=== PATIENT | female | born 1965 | race Caucasian/White ===

== ENCOUNTER 2020-08-29 07:34 | Outpatient (REF) | payer OTHER, SELFPAY ==
[2020-08-29 12:12] LABS: Alanine Aminotransferase 28 U/L (0-31); Aspartate Amino Transferase 18 U/L (5-31); Cholesterol 143 mg/dL; HDL Cholesterol 56 mg/dL; LDL Cholesterol Calculated 72 mg/dl; Triglycerides 78 mg/dL
[2020-08-29 12:38] LABS: Vitamin D 25-OH Total 33.4 ng/mL (>30)
== END 2020-08-29 07:35 | disposition home or self-care (01) ==
LOC: HO.HMGCLDS 07:34
PROVIDERS: PCP Internal Medicine; Visit Provider Internal Medicine
DX: Z00.01 Encounter for general adult medical examination with abnormal findings (principal); Z78.0 Asymptomatic menopausal state
CPT/HCPCS: 80061; 82306; 84450; 84460

== ENCOUNTER → 2020-09-29 08:45 | Outpatient (BNVA) | payer OTHER, SELFPAY | PROVIDERS: PCP Internal Medicine; Referring Provider Internal Medicine; Visit Provider Internal Medicine Cardiovascular Disease | DX: Z76.89 Persons encountering health services in other specified circumstances (principal) ==

== ENCOUNTER → 2020-10-05 11:53 | Outpatient (REF) | payer OTHER, SELFPAY ==
--- NOTE | 2020-10-05 11:30 | CA_ITS ---
Acquisition Time: 2020-10-05 11:06:13 Total Exercise Time: 00:08:33 Test Indications: SOB Medications: Protocol: ALESSANDRA Max HR: 171 BPM 104% of Pred: 163 BPM Max BP: 192/052 mmHG Max Work Load: 10.1 METS Exercise stress ECHO using Alessandra protocol, total of 8 min 33 sec. METS10.10, MAPHR up to 104%. Pt tolerated well, denies any anginal sx. EKG with occ. PAC's no ischemic changes. EHO images taken at rest and immediately after peak exercise. Defenity contrast used. hypertensive response to exersice that normalizes in recovery. Test reviewed with Dr. Zamora. Referred By: Ramone Hamilton Overread By: Guerrero Vang
== END ==
LOC: HO.CARD 11:53
PROVIDERS: PCP Internal Medicine; Visit Provider Internal Medicine Cardiovascular Disease
DX: I73.9 Peripheral vascular disease, unspecified (principal); R06.02 Shortness of breath
CPT/HCPCS: 93017; 93350; Q9957

== ENCOUNTER 2020-11-08 07:48 | Outpatient (REF) | payer OTHER, SELFPAY ==
[2020-11-08 12:01] LABS: Cholesterol 135 mg/dL; HDL Cholesterol 46 mg/dL; LDL Cholesterol Calculated 77 mg/dl; Triglycerides 62 mg/dL
== END 2020-11-08 07:49 | disposition home or self-care (01) ==
LOC: HO.HMGCLDS 07:48
PROVIDERS: PCP Internal Medicine; Visit Provider Internal Medicine Cardiovascular Disease
DX: I25.10 Atherosclerotic heart disease of native coronary artery without angina pectoris (principal); I73.9 Peripheral vascular disease, unspecified
CPT/HCPCS: 36415; 80061

== ENCOUNTER → 2020-11-10 10:03 | Outpatient (BNVA) | payer OTHER, SELFPAY | PROVIDERS: PCP Internal Medicine; Visit Provider Internal Medicine Cardiovascular Disease ==

== ENCOUNTER 2021-01-24 08:25 | Outpatient (REF) | payer OTHER, SELFPAY ==
[2021-01-24 11:13] LABS: MANUAL DIFF FLAG NO
[2021-01-24 11:27] LABS: Basophils Percent Auto 0.7 % (0-2); Eosinophils Percent Auto 0.7 % (0-4); Hematocrit 42.4 % (37-47); Hemoglobin 13.5 g/dl (12.0-16.0); Imm Gran Abs Auto 0.01 X10*3/uL (0.00-0.03); Imm Gran Pct Auto 0.2 % (0.0-0.4); Lymphocytes Absolute Auto 1.8 X10*3/uL (1.2-4.9); Lymphocytes Percent Auto 29.2 % (20-40); Mean Corpuscular HGB Conc 31.8 g/dl (31.0-35.0); Mean Corpuscular Volume 91.2 fL (80-98); Mean Platelet Volume 10.9 fL (9.4-12.3); Monocytes Absolute Auto 0.4 X10*3/uL (0.1-1.2); Monocytes Percent Auto 6.8 % (2-11); Neutrophils Absolute Auto 3.8 X10*3/uL (2.0-8.3); Neutrophils Percent Auto 62.4 % (45-73); Platelet Count 163 X10*3/uL (160-400); Red Blood Count 4.65 X10*6/uL (4.20-5.50); Red Cell Distribution Width 12.5 % (11.0-16.0); White Blood Count 6.1 X10*3/uL (4.8-10.8)
[2021-01-24 11:36] LABS: Alanine Aminotransferase 40 U/L (0-31); Albumin Level 4.6 g/dL (3.5-5.0); Alkaline Phosphatase 117 U/L (39-117); Anion Gap 11 (12-20); Aspartate Amino Transferase 19 U/L (5-31); Bilirubin Total 0.7 mg/dL (0.0-1.0); Blood Urea Nitrogen 22 mg/dL (9-16); Calcium 9.5 mg/dL (8.4-10.2); Carbon Dioxide 29 mmol/L (22-29); Chloride 107 mmol/L (96-108); Cholesterol 129 mg/dL; Estimated Glomerular Filt Rate > 60; Glucose Fasting 84 mg/dL (60-99); HDL Cholesterol 54 mg/dL; LDL Cholesterol Calculated 65 mg/dl; Potassium 4.5 mmol/L (3.3-5.1); Sodium 142 mmol/L (135-145); Total Protein 6.8 g/dL (6.5-8.0); Triglycerides 54 mg/dL
[2021-01-24 11:57] LABS: Vitamin D 25-OH Total 39.3 ng/mL (>30)
== END 2021-01-24 08:26 | disposition home or self-care (01) ==
LOC: HO.HMGCLDS 08:25
PROVIDERS: Referring Provider Internal Medicine Cardiovascular Disease; Visit Provider Internal Medicine
DX: Z00.01 Encounter for general adult medical examination with abnormal findings (principal); I73.9 Peripheral vascular disease, unspecified; E78.5 Hyperlipidemia, unspecified; F41.8 Other specified anxiety disorders; Z78.0 Asymptomatic menopausal state
CPT/HCPCS: 36415; 80053; 80061; 82306; 85025

== ENCOUNTER 2021-03-23 | Outpatient (REF) | payer OTHER, SELFPAY | END 2021-03-23 00:01 | disposition home or self-care (01) | LOC: HO.LNP | PROVIDERS: Visit Provider Hospitalist | DX: R30.0 Dysuria (principal) | CPT/HCPCS: 87086 ==

== ENCOUNTER → 2021-03-27 09:54 | Outpatient (BNVA) | payer OTHER, SELFPAY | PROVIDERS: PCP Internal Medicine; Referring Provider Internal Medicine; Visit Provider Nurse Practitioner Family ==

== ENCOUNTER → 2021-05-29 09:50 | Outpatient (BNVA) | payer OTHER, SELFPAY | PROVIDERS: PCP Internal Medicine; Referring Provider Internal Medicine; Visit Provider Nurse Practitioner Family ==

== ENCOUNTER 2021-11-15 12:35 | Outpatient (REF) | payer OTHER, SELFPAY ==
--- NOTE | ~2021-11-15 | MM_ITS ---
EXAMINATION: MM SCREENING DIGITAL BREAST TOMOSYNTHESIS, BILATERAL CLINICAL INFORMATION: Screening. Asymptomatic. The lifetime risk of breast cancer based on the Tyrer-Cuzick Model is 13%. COMPARISON: Mammography: 07/15/2020, 04/28/2019, 02/24/2018, 01/14/2017, 12/09/2015, 11/15/2014 TECHNIQUE: Digital breast tomosynthesis is performed in both the craniocaudal and mediolateral oblique views along with computer-aided detection (CAD). Synthesized 2D images are generated from the tomosynthesis. FINDINGS: There are scattered areas of fibroglandular density (ACR BI-RADS breast composition Category b). Left breast parenchymal pattern is similar to prior studies. There is no developing density or interval mass or architectural abnormality. Biopsy clip marker again seen anterior lower inner left breast. Neither breast shows abnormal calcifications. The axilla and skin contours are unremarkable. Right MLO view has questionable asymmetric density mid upper breast approximately 8 cm from nipple. This could represent island of stable fibroglandular tissue in the area of otherwise involuting parenchyma. Patient will be recalled for additional imaging. MM/MM tomosynthesis screening BI IMPRESSION: 1. Right: Question of asymmetric density mid upper right breast versus island fibroglandular tissue. 2. Left: No mammographic evidence of malignancy. ASSESSMENT: BI-RADS 0: Incomplete - Need Additional Imaging Evaluation RECOMMENDATION: 1. Additional views of the right breast (spot MLO, standard ML). 2. Targeted ultrasound if warranted after review of the additional views. 3. Radiology department staff will contact the patient for additional imaging. This patient's information was entered into a reminder system with a target due date for their next mammogram.
== END 2021-11-15 12:36 | disposition home or self-care (01) ==
LOC: HO.MAMMO 12:35
PROVIDERS: PCP Nurse Practitioner Family; Visit Provider Nurse Practitioner Family
DX: Z12.31 Encounter for screening mammogram for malignant neoplasm of breast (principal)
CPT/HCPCS: 77063; 77067

== ENCOUNTER → 2021-11-27 09:50 | Outpatient (BNVA) | payer OTHER, SELFPAY | PROVIDERS: PCP Nurse Practitioner Family; Referring Provider Nurse Practitioner Family; Visit Provider Nurse Practitioner Family ==

== ENCOUNTER 2021-11-28 13:48 | Outpatient (REF) | payer OTHER, SELFPAY ==
--- NOTE | ~2021-11-28 | MM_ITS ---
EXAMINATION: MM DIAGNOSTIC DIGITAL BREAST TOMOSYNTHESIS, RIGHT US DIAGNOSTIC ULTRASOUND BREAST, RIGHT CLINICAL INFORMATION: Recall from screening for questionable asymmetric density versus summation upper right breast on MLO view. Family history breast cancer mother, sister. COMPARISON: Mammography: 11/15/2026 oh, 07/15/2020, 04/28/2019, 02/24/2018, 01/14/2017, 12/09/2015, 11/15/2014 TECHNIQUE: Digital breast tomosynthesis is performed. 2D images are generated from the tomosynthesis. The following views are obtained: ML, spot MLO, spot ML Ultrasound right breast is targeted to the upper breast. Grayscale imaging and color Doppler are performed without and with harmonics. FINDINGS: There are scattered areas of fibroglandular density (ACR BI-RADS breast composition Category b). The additional spot MLO and standard ML views show no persistent asymmetric density or architectural abnormality. The finding is questionably visible on the spot ML view again likely summation. No architectural abnormality. No three-dimensional mass. Ultrasound demonstrates no cystic or solid mass or architectural abnormality. No focal duct ectasia. Results are discussed with the patient at time of visit. Given the family history breast cancer in mother and sister, short interval follow-up right mammography will be requested to exclude remote possibility of an occult developing density in the area of recent imaging concern. MM/MM tomosynthesis added views R IMPRESSION: Additional imaging shows no convincing persistent three-dimensional asymmetric density. Unremarkable targeted right breast ultrasound. ASSESSMENT: BI-RADS 3: Probably Benign RECOMMENDATION: Diagnostic right mammography in 6 months. This patient's information was entered into a reminder system with a target due date for their next mammogram.
== END 2021-11-28 13:49 | disposition home or self-care (01) ==
LOC: HO.MAMMO 13:48
PROVIDERS: Visit Provider Nurse Practitioner Family
DX: R92.2 Inconclusive mammogram (principal)
CPT/HCPCS: 76642; 77061; 77065

== ENCOUNTER → 2021-12-18 09:19 | Outpatient (BNVA) | payer SELFPAY | PROVIDERS: PCP Nurse Practitioner Family | DX: Z11.1 Encounter for screening for respiratory tuberculosis (principal) ==

== ENCOUNTER 2022-03-28 07:07 | Outpatient (REF) | payer OTHER, SELFPAY ==
--- NOTE | ~2022-03-28 | XR_ITS ---
EXAMINATION: XR CHEST CLINICAL INFORMATION: Syncope and collapse COMPARISON: Chest x-ray 10/30/2018 TECHNIQUE: 2 views of the chest were obtained. FINDINGS: Cardiac silhouette is normal in size. Atherosclerotic disease of the aortic arch. The lungs are well aerated. There is no lobar consolidation. No pleural effusion or pneumothorax. No acute osseous abnormality. XR/XR chest 2V IMPRESSION: Stable examination demonstrating no acute pulmonary pathology.
[2022-03-28 11:43] LABS: MANUAL DIFF FLAG NO
[2022-03-28 11:51] LABS: Basophils Percent Auto 0.5 % (0-2); Eosinophils Absolute Auto 0.1 X10*3/uL (0.0-0.4); Eosinophils Percent Auto 1.1 % (0-4); Hematocrit 42.3 % (37.0-47.0); Hemoglobin 13.8 g/dl (12.0-16.0); Imm Gran Abs Auto 0.01 X10*3/uL (0.00-0.03); Imm Gran Pct Auto 0.2 % (0.0-0.4); Lymphocytes Absolute Auto 1.4 X10*3/uL (1.2-4.9); Lymphocytes Percent Auto 31.9 % (20-40); Mean Corpuscular HGB Conc 32.6 g/dl (31.0-35.0); Mean Corpuscular Hemoglobin 29.9 pg (27.0-33.0); Mean Corpuscular Volume 91.8 fL (80.0-98.0); Mean Platelet Volume 11.2 fL (9.4-12.3); Monocytes Absolute Auto 0.4 X10*3/uL (0.1-1.2); Monocytes Percent Auto 8.1 % (2-11); Neutrophils Absolute Auto 2.6 x10*3/uL (2.0-8.3); Neutrophils Percent Auto 58.2 % (45-73); Platelet Count 196 X10*3/uL (160-400); Red Blood Count 4.61 X10*6/uL (4.20-5.50); Red Cell Distribution Width 12.7 % (11.0-16.0); White Blood Count 4.4 X10*3/uL (4.8-10.8)
[2022-03-28 12:00] LABS: Alanine Aminotransferase 17 U/L (0-31); Albumin Level 4.5 g/dL (3.5-5.0); Alkaline Phosphatase 90 U/L (39-117); Anion Gap 13 (12-20); Aspartate Amino Transferase 14 U/L (5-31); Bilirubin Total 0.3 mg/dL (0.0-1.0); Blood Urea Nitrogen 17 mg/dL (9-16); Calcium 9.6 mg/dL (8.4-10.2); Carbon Dioxide 25 mmol/L (22-29); Chloride 110 mmol/L (96-108); Cholesterol 151 mg/dL; Estimated Glomerular Filt Rate > 60; Glucose Fasting 92 mg/dL (60-99); HDL Cholesterol 52 mg/dL; LDL Cholesterol Calculated 86 mg/dl; Potassium 4.8 mmol/L (3.3-5.1); Sodium 143 mmol/L (135-145); Total Protein 6.7 g/dL (6.5-8.0); Triglycerides 66 mg/dL
[2022-03-28 12:25] LABS: TSH reflex Free T4 1.84 uIU/mL (0.32-4.0)
[2022-03-30 05:46] LABS: Mumps Virus IgG Antibody <9.00 AU/mL; Rubella IgG Antibody 1.37 Index; Rubeola IgG (Measles) <13.50 AU/mL
== END 2022-03-28 07:08 | disposition home or self-care (01) ==
LOC: HO.HMGCX 07:07
PROVIDERS: PCP Nurse Practitioner Family; Visit Provider Nurse Practitioner Family
DX: Z00.00 Encounter for general adult medical examination without abnormal findings (principal); Z13.9 Encounter for screening, unspecified; I10 Essential (primary) hypertension; E78.00 Pure hypercholesterolemia, unspecified; R55 Syncope and collapse
CPT/HCPCS: 36415; 71046; 80053; 80061; 84443; 85025; 86735; 86762; 86765; 86787

== ENCOUNTER 2022-05-29 13:05 | Outpatient (REF) | payer OTHER, SELFPAY ==
--- NOTE | ~2022-05-29 | MM_ITS ---
EXAMINATION: MM DIAGNOSTIC DIGITAL BREAST TOMOSYNTHESIS, RIGHT CLINICAL INFORMATION: Follow-up right breast to exclude developing density in the area of question asymmetric density mid upper breast. Family history breast cancer mother, sister. TC score 14%. COMPARISON: Mammography: 11/28/2021, 10/28/2021, 07/15/2020; ultrasound right breast 11/28/2021 TECHNIQUE: Digital breast tomosynthesis is performed in both the craniocaudal and mediolateral oblique views along with computer-aided detection (CAD). Synthesized 2D images are generated from the tomosynthesis. FINDINGS: There are scattered areas of fibroglandular density (ACR BI-RADS breast composition Category b). There are no significant masses, abnormal calcifications, or other abnormalities. There is no persistent asymmetric density in the mid upper right breast. There is no mass or architectural abnormality or developing density. The axilla and skin contours are unremarkable. Results are provided to the patient at time of visit by the technologist. MM/MM tomosynthesis diagnostic RT IMPRESSION: -No mammographic evidence of malignancy. -No developing density or persistent asymmetric density. ASSESSMENT: BI-RADS 2: Benign RECOMMENDATION: Routine annual mammography screening, due in 6 months. This patient's information was entered into a reminder system with a target due date for their next mammogram.
== END 2022-05-29 13:06 | disposition home or self-care (01) ==
LOC: HO.MAMMO 13:05
PROVIDERS: PCP Nurse Practitioner Family; Visit Provider Nurse Practitioner Family
DX: R92.2 Inconclusive mammogram (principal)
CPT/HCPCS: 77061; 77065

== ENCOUNTER → 2022-11-28 14:08 | Outpatient (BNVA) | payer OTHER, SELFPAY | PROVIDERS: PCP Nurse Practitioner Family; Referring Provider Nurse Practitioner Family; Visit Provider Nurse Practitioner Family | DX: Z13.89 Encounter for screening for other disorder (principal) ==

== ENCOUNTER → 2023-01-14 10:25 | Outpatient (REF) | payer OTHER, SELFPAY ==
--- NOTE | 2023-01-14 10:30 | ECG_ITS ---
Test Reason : z91.89 Blood Pressure : / mmHG Vent. Rate : 073 BPM Atrial Rate : 073 BPM P-R Int : 138 ms QRS Dur : 072 ms QT Int : 360 ms P-R-T Axes : 069 043 032 degrees QTc Int : 396 ms Normal sinus rhythm Normal ECG When compared with ECG of 08-JAN-2013 21:45, No significant change was found Referred By: Jose Lim Electronically Signed By:FABRIZIO MANCINI
== END ==
LOC: HO.CARD 10:25
PROVIDERS: PCP Nurse Practitioner Family; Visit Provider Nurse Practitioner Family
DX: Z91.89 Other specified personal risk factors, not elsewhere classified (principal)
CPT/HCPCS: 93005

== ENCOUNTER 2023-01-21 11:12 | Outpatient (REF) | payer OTHER, SELFPAY ==
--- NOTE | ~2023-01-21 | MM_ITS ---
EXAMINATION: MM SCREENING DIGITAL BREAST TOMOSYNTHESIS, BILATERAL CLINICAL INFORMATION: Screening. Asymptomatic. Family history breast cancer, mother, sister. Personal history intraductal papilloma left breast status post excision, 2011. The lifetime risk of breast cancer based on the Tyrer-Cuzick Model is 16%. COMPARISON: Mammography: 05/29/2022, 11/28/2021, 11/15/2021, 07/15/2020, 04/28/2019 TECHNIQUE: Digital breast tomosynthesis is performed in both the craniocaudal and mediolateral oblique views along with computer-aided detection (CAD). Synthesized 2D images are generated from the tomosynthesis. FINDINGS: There are scattered areas of fibroglandular density (ACR BI-RADS breast composition Category b). There are no significant masses, abnormal calcifications, or other abnormalities. There is no developing density or architectural abnormality. The axilla are unremarkable. The skin contours are smooth. There is a cylinder biopsy clip marker anterior lower inner left breast. MM/MM tomosynthesis screening BI IMPRESSION: No mammographic evidence of malignancy. ASSESSMENT: BI-RADS 1: Negative RECOMMENDATION: Routine annual mammography screening. This patient's information was entered into a reminder system with a target due date for their next mammogram.
== END 2023-01-21 11:13 | disposition home or self-care (01) ==
LOC: HO.MAMMO 11:12
PROVIDERS: PCP Nurse Practitioner Family; Visit Provider Nurse Practitioner Family
DX: Z12.31 Encounter for screening mammogram for malignant neoplasm of breast (principal)
CPT/HCPCS: 77063; 77067

== ENCOUNTER 2023-04-15 09:00 | Outpatient (REF) | payer OTHER, SELFPAY ==
--- NOTE | ~2023-04-15 | XR_ITS ---
EXAMINATION: XR SHOULDER, RIGHT CLINICAL INFORMATION: Unspecified sprain of right shoulder joint COMPARISON: None available. TECHNIQUE: Three views of the right shoulder. FINDINGS: The right humeral head and neck appear unremarkable. There is mild to moderate narrowing of the right glenohumeral joint. No acute bony fracture or dislocation. No erosive process seen. The scapula appears intact. Minimal spurring at the acromion. The right clavicle appears unremarkable. XR/XR shoulder RT min 2V IMPRESSION: No acute process. Mild to moderate narrowing of the right glenohumeral joint.
== END 2023-04-15 09:01 | disposition home or self-care (01) ==
LOC: HO.HMGCX 09:00
PROVIDERS: PCP Nurse Practitioner Family; Visit Provider Internal Medicine
DX: S43.401A Unspecified sprain of right shoulder joint, initial encounter (principal); X58.XXXA Exposure to other specified factors, initial encounter; Y93.9 Activity, unspecified; Y92.9 Unspecified place or not applicable; Y99.9 Unspecified external cause status
CPT/HCPCS: 73030

== ENCOUNTER 2023-05-16 13:47 | Outpatient (AMB) | payer OTHER, SELFPAY ==
--- NOTE | 2023-05-16 14:42 | MHC.OFFWIV ---
Intake Vital Signs 05/16/23 14:44 Height 5 ft 4 in BP 130/72 Blood Pressure Location Lt brachial Position Sitting Pulse 80 Pulse Source Pulse Oximeter Temp 96.3 F L Temp Source Temporal Artery Scan Pulse Oximetry (%) 98 Oxygen Delivery Method Room Air Intake Visit Reasons: EST/ right shoulder pain Intake Note: Pt is here c/o right shoulder pain. Pt states she was seen last week due to a fall. Pt states she has a sharp pain in her shoulder and has no range of motion. Pt states she is in a lot of pain. Patient Tobacco Use Status: Former Tobacco user Allergies mirtazapine [From Remeron] Adverse Reaction (Intermediate, Verified 05/16/23 14:44) Agitated clora prep Allergy (Unknown, Uncoded 05/16/23 14:44) rash Do you need a note to return to daycare/school/sports/work: No HPI HPI Comments History of Present Illness Details 57-year-old female who presents for right shoulder pain. Patient suffered a fall approximately week ago she has seen evaluated in the walk-in clinic with negative x-rays to or sling for a month as well as utilize meloxicam and Flexeril today she presents with painful range of motion after taking the sling off. [facility] Medical History (Updated 05/16/23 @ 15:33 by PAPI Larkin) Adhesive capsulitis Centrilobular emphysema Depression with anxiety HLD (hyperlipidemia) Intraductal papilloma of left breast Peripheral vascular disease Postmenopause Primary insomnia Proctitis Surgical History History of esophagogastroduodenoscopy (EGD) History of intravascular stent placement Hx of colonoscopy Family History Father Cancer of prostate CAD (coronary artery disease) CHF (congestive heart failure) Diabetes mellitus Mother Brain cancer Myocardial infarction Sister Breast cancer Sister Crohn's disease Hepatitis B Brother No problems noted. Brother Cancer of prostate Son No problems noted. Son No problems noted. Daughter No problems noted. Family/Other Substance use disorder Social History Housing: House Alcohol intake: never Patient Tobacco Use Status: Former Tobacco user Tobacco use type: Cigarette Cigarettes Per Day: 2 e-Cigarette/Vaping Use: Currently Using Second Hand Smoke Exposure: No service: No Current occupational status: employed Current occupational exposures/hazards: No Cognitive needs: No Hearing needs: No Vision needs: No Review of Systems Musc Reports arthralgias and Reports joint swelling Physical Exam Vital Signs: Last Vital Signs Temp 96.3 F L 05/16/23 14:44 Pulse 80 05/16/23 14:44 BP 130/72 05/16/23 14:44 Pulse Ox 98 05/16/23 14:44 Oxygen Delivery Method Room Air 05/16/23 14:44 Const General: cooperative, healthy appearing and alert Extrem Other: Pain with passive range of motion on external internal rotation as well as flexion and extension. No swelling over the joint no obvious deformities Office Meds ketorolac Performing Provider: PAPI Larkin Administered by: PAPI Larkin on 05/16/23 15:42 Dose Route Admin Location Lot Number Expiration Date [employer] Equipment [employer]airer 30 mg IM Rdeltoid [id number] 03/20/24 91039-396-09 [facility] Assessment & Plan Assessment & Plan (1) Adhesive capsulitis: Code(s): M75.00 - Adhesive capsulitis of unspecified shoulder Plan 57-year-old female who presents for right shoulder pain. VSS. Exam patient's insulin oriented no acute distress exam is notable for the above findings. Patient's symptoms consistent with he has a capsulitis. Toradol IM injection provided short course of steroids as well as PT referral placed. Discharge instructions, follow up and treatment are discussed with patient in my usual fashion. Alternatives in treatment are also discussed. The patient will return for worsening symptoms or as needed. Advised that any labs/imaging ordered will be followed up on and contact made if further treatment needed. Counseled that patient's condition may require further evaluation and/or treatment. Symptoms of concern for worsening disorder discussed in detail in my customary manner. Patient does verbalize understanding of the plan, there are no apparent barriers to communication. The patient is given the opportunity to ask questions and have them answered to his/her satisfaction Orders: Orders PT Evaluation and Treatment Today M75.00 - Adhesive capsulitis of unspecified shoulder AMB Ketorolac Injection Today M75.00 - Adhesive capsulitis of unspecified shoulder Medications: New prednisone 40 mg (2 x 20 mg) PO DAILY 3 days 6 tabs 0RF Coding Level of Care Code Est Pt Level 3 (41815) Diagnoses Adhesive capsulitis M75.00
[2023-05-16 14:44] VITALS: BP 130/72; PULSE 80; TEMP 35.7; O2SAT 98
== END 2023-05-16 15:37 | disposition home or self-care (01) ==
PROVIDERS: PCP Nurse Practitioner Family; Visit Provider Physician Assistant
DX: M75.00 Adhesive capsulitis of unspecified shoulder (principal)
CPT/HCPCS: 96372; 99213; J1885

== ENCOUNTER 2023-05-31 08:09 | Outpatient (AMB) | payer OTHER, SELFPAY ==
[2023-05-31 08:21] VITALS: BP 134/76; PULSE 73; TEMP 36.3; O2SAT 93
--- NOTE | 2023-05-31 08:21 | AM.OFFWIN_ITS ---
Intake Vital Signs 05/31/23 08:21 Height 5 ft 4 in BP 134/76 Blood Pressure Location Rt brachial Position Sitting Pulse 73 Pulse Source Pulse Oximeter Temp 97.3 F Temp Source Oral Pulse Oximetry (%) 93 Oxygen Delivery Method Room Air Intake Visit Reasons: EP RT Shoulder Intake Note: Pt is here or Rt shoulder pain. States she has frozen shoulder. Patient Tobacco Use Status: Former Tobacco user Allergies mirtazapine [From Remeron] Adverse Reaction (Intermediate, Verified 05/31/23 08:22) Agitated clora prep Allergy (Unknown, Uncoded 05/16/23 14:44) rash Do you need a note to return to daycare/school/sports/work: No HPI HPI Comments History of Present Illness Details 58-year-old female presents with almost 2 months of right shoulder pain after a fall. Patient is unable to lift her arm, and stating that the pain is radiating to her neck now. She does not report any loss of sensation, but the decreased range of motion is really impacting her activities of daily living. [facility] Medical History Adhesive capsulitis Centrilobular emphysema Depression with anxiety HLD (hyperlipidemia) Intraductal papilloma of left breast Peripheral vascular disease Postmenopause Primary insomnia Proctitis Surgical History History of esophagogastroduodenoscopy (EGD) History of intravascular stent placement Hx of colonoscopy Family History Father Cancer of prostate CAD (coronary artery disease) CHF (congestive heart failure) Diabetes mellitus Mother Brain cancer Myocardial infarction Sister Breast cancer Sister Crohn's disease Hepatitis B Brother No problems noted. Brother Cancer of prostate Son No problems noted. Son No problems noted. Daughter No problems noted. Family/Other Substance use disorder Social History Housing: House Alcohol intake: never Patient Tobacco Use Status: Former Tobacco user Tobacco use type: Cigarette Cigarettes Per Day: 2 e-Cigarette/Vaping Use: Currently Using Second Hand Smoke Exposure: No service: No Current occupational status: employed Current occupational exposures/hazards: No Cognitive needs: No Hearing needs: No Vision needs: No Review of Systems Const Details: Constitutional: No Fever, No Chills Cardiovascular: No Chest Pain, No SOB Respiratory: No Cough, No Dyspnea Gastrointestinal: No Nausea, No Vomiting, No Diarrhea, No abdominal Pain Genitourinary: No Dysuria, No Hematuria Musculoskeletal: positive right shoulder pain, No Myalgias, No Joint Swelling Skin: No Skin lacerations, No rash Neuro: No Weakness, No Numbness, No Paresthesias, No Dizziness, No Headache Physical Exam Vital Signs: Last Vital Signs Temp 97.3 F 05/31/23 08:21 Pulse 73 05/31/23 08:21 BP 134/76 05/31/23 08:21 Pulse Ox 93 05/31/23 08:21 Oxygen Delivery Method Room Air 05/31/23 08:21 Appearance: Alert. Oriented X3. No acute distress. Eyes: Pupils equal, round and reactive to light. Neck: Normal inspection. Neck supple. CVS: Normal heart rate and rhythm. Pulses normal. Respiratory: No respiratory distress. Breath sounds normal. Skin: Skin warm and dry. Normal skin color. Normal skin turgor. Extremities: Decreased flexion, extension on adduction and abduction to the right shoulder, tenderness at the supraspinatus ligament. Brisk capillary refill bilaterally, radial pulses equal. Equal laundry superintendent strength. Full flexion extension of all digits. Full range of motion to the wrist and elbows. Neuro: No motor deficit. No sensory deficit. Cranial nerves 2-12 intact. Office Meds ketorolac Performing Provider: Carolyn Abbott NP Administered by: Ashwini Olivo RN on 05/31/23 08:45 Dose Route Admin Location Lot Number Expiration Date [employer] Operator 30 mg IM Right deltoid [id number] 03/19/24 07658-544-43 [facility] Comments: Instructed pt no OTC NSAIDS for 8-10 hours post injection. Assessment & Plan Assessment & Plan (1) Right shoulder strain: Code(s): S46.911A - Strain of unspecified muscle, fascia and tendon at shoulder and upper arm level, right arm, initial encounter Plan 58-year-old female presents for for evaluation for right shoulder pain that started on 04/15/2023 after a fall. She has had several evaluations at this facility or continued right shoulder pain and decreased range of motion. She states the pain is getting worse, and she is unable to perform activities of daily living secondary to the shoulder pain. She has got equal laundry superintendent strength, brisk capillary refill, equal radial pulses. She has full range of motion to the wrist, and both hands with no indication of tendon deficit to the digits. She is able to flex and extend her elbows however, she is not able to abduct and abduct shoulder on the right side. Flexion and extension is also difficult for her. Physical exam indicates tenderness to the acromion process, anteriorly with palpation to the supraspinatus and infraspinatus muscles and ligament. Considering that this patient has pain has increased, and has not had any improvement range of motion, I feel that orthopedics referral is required for suspicion of ligament or tendon tear of the right shoulder. Will give Toradol for pain management at this time, refill prescription for cyclobenzaprine. Supportive measures with Tylenol, Motrin, ice, elevation, and gentle range of motion exercises as tolerated. Will refer to orthopedics. Patient verbalized understanding of and agrees to plan of care discharge home. Verbalized understanding of signs and symptoms indicating need for emergent intervention. Orders: Orders AMB Ketorolac Injection Today S46.911A - Strain of unspecified muscle, fascia and tendon at shoulder and upper arm level, right arm, initial encounter Referrals Orthopedics Referral S46.911A - Strain of unspecified muscle, fascia and tendon at shoulder and upper arm level, right arm, initial encounter Medications: New cyclobenzaprine 10 mg PO TID PRN 30 tabs 0RF muscle spasm Patient Instructions: You were evaluated for right shoulder pain from an injury that occurred on 04/15/2023. Please continue to present to physical therapy as scheduled. I have referred you to orthopedics for suspicion of ligament and tendon injury to the right shoulder. Alternate Tylenol 650 mg every 6 hours and Motrin 600 mg every 6 hours as needed for pain management. Consider taking these medications 3 hours apart so you have pain and fever management every 3 hours. Write down what time you take these medications to prevent accidental overdose. Motrin is the same medication as Advil and ibuprofen. Tylenol is the same medication as acetaminophen. I have prescribed cyclobenzaprine. This medication is a muscle relaxer, this medication can delay reaction time, increased risk for falls, and cause drowsiness. Do not drive or operate machinery while taking this medication. Do not take this medication at the same time as taking Motrin. Thank you for choosing this urgent care for evaluation. Please follow-up with primary care physician as needed. Return to the emergency department for any new, concerning, or worsening symptoms. Coding Level of Care Code Est Pt Level 3 (12651) Diagnoses Right shoulder strain S46.911A
== END 2023-05-31 09:04 | disposition home or self-care (01) ==
PROVIDERS: PCP Nurse Practitioner Family; Visit Provider Nurse Practitioner Family
DX: S46.911A Strain of unspecified muscle, fascia and tendon at shoulder and upper arm level, right arm, initial encounter (principal)
CPT/HCPCS: 96372; 99213; J1885

== ENCOUNTER 2023-05-31 09:27 | Outpatient (AMB) | payer OTHER, SELFPAY ==
--- NOTE | 2023-05-31 09:39 | A.OFFVIS_ITS ---
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 Patient reports on 05/16/23 she had a fall on right shoulder while she was vacuuming. States constant severe pain that radiates up into her neck and down to elbow with numbness and tingling. Her pain gets worse at night and is affecting AODL. Limited ROM. Finds no relief with Ibuprofen and very little relief with flexeril and meloxicam. 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 She states she has severe constant pain, limited ROM, numbness and tingling in her right shoulder which radiates up to her neck and down to the elbow. Her pain is aggravated at night and is affecting her AODL. She finds no relief with ibuprofen and minimal relief with Flexeril and meloxicam. She is scheduled for physical therapy session on 06/05/23. She does not have a history of diabetes. [facility] Medical History Adhesive capsulitis Centrilobular emphysema Depression with anxiety HLD (hyperlipidemia) Intraductal papilloma of left breast Peripheral vascular disease Postmenopause Primary insomnia Proctitis Surgical History History of esophagogastroduodenoscopy (EGD) History of intravascular stent placement Hx of colonoscopy Family History Father Cancer of prostate CAD (coronary artery disease) CHF (congestive heart failure) Diabetes mellitus Mother Brain cancer Myocardial infarction Sister Breast cancer Sister Crohn's disease Hepatitis B Brother No problems noted. Brother Cancer of prostate Son No problems noted. Son No problems noted. Daughter No problems noted. Family/Other Substance use disorder Social History (Updated 05/31/23 @ 09:48 by Brunilda Medrano [facility]) Housing: House Alcohol intake: never Patient Tobacco Use Status: Former Tobacco user Tobacco use type: Cigarette Cigarettes Per Day: 2 e-Cigarette/Vaping Use: Currently Using Second Hand Smoke Exposure: No service: No Current occupational status: employed Current occupation: right hand dominant Current occupational exposures/hazards: No Cognitive needs: No Hearing needs: No Vision needs: No Review of Systems Const All systems reviewed & are unremarkable except as noted in HPI and below Physical Exam Vital Signs: BMI result Body Mass Index 25.2 Const General: cooperative, healthy appearing, comfortable, no acute distress, well developed and alert Orientation/consciousness: patient oriented x3 HEENT Head: Yes normal to inspection, Yes normocephalic and Yes atraumatic Eyes General: appearance normal, both eyes and all related structures Resp Effort & Inspection: normal respiratory effort and able to speak in complete sentences Cardio Rate: regular rate Peripheral pulses: Peripheral pulses 2+ throughout GI Palpation (GI): Soft to palpation Skin Lesions: no lesions Rashes: no rashes Neuro General: patient oriented x3 Extrem Other: Right shoulder normal to inspection. Tenderness within the treapezium into the neck on the right. Tenderness over the bicipital groove and along the deltoid region of the shoulder. Forward flexion to 90, passive to 100, external rotation to 90, internal rotation to S1. Pain with RTC strength testing. NVI. Office Procedures Joint Injection/Drain Joint Injection/Drain Primary Site: right shoulder Prep: site was prepped using aseptic technique, ethochloride spray was applied and injection warnings given Injected: 80 mg of, DepoMedrol, 1% plain lidocaine and in the subcromial space Approach Used: posterolateral Procedure: The patient tolerated the procedure well and there was some relief with the local anesthesia Coding 00554 - Glenohumeral/Tronchanteric Bursa/Intraarticular Procedure code (CPT) selection complete Results Reviewed Results Reviewed: 05/31/23 10:04 Lidocaine HCl 2 % MPF [Xylocaine 2 % MPF] 5 ml .ROUTE .STK-MED ONE 05/31/23 10:05 methylPREDNISolone acetate [DEPO-MedroL] 80 mg .ROUTE .STK-MED ONE Assessment & Plan Assessment & Plan (1) Injury of right rotator cuff: Code(s): S46.001A - Unspecified injury of muscle(s) and tendon(s) of the rotator cuff of right shoulder, initial encounter Plan We discussed options today which include steroid injection. They did consent to move forward with the right shoulder injection, which was tolerated well. I recommended rest, ice and elevation and OTC anti-inflammatories PRN for discomfort. An MRI of the right shoulder has been ordered to further evaluate the integrity of her RTC. I will see her back once the results are obatined. Orders: Orders MR shoulder RT wo con Today S46.001A - Unspecified injury of muscle(s) and tendon(s) of the rotator cuff of right shoulder, initial encounter Patient Instructions: Scribed for Leidy Marcano PA-C, by Jacobo Machado medical office assistant instructor, on 05/31/2023 at 9:45 AM EST. I, Leidy Marcano PA-C, have personally reviewed and agree with the information entered by the scribe. Coding Level of Care Code New Pt Level 3 (73400) Diagnoses Injury of right rotator cuff S46.001A CPT Codes Coding - Joint 7: 05069 - Glenohumeral/Tronchanteric Bursa/Intraarticular ([id number])
[2023-05-31 09:48] VITALS: BMI 25.2
== END 2023-05-31 10:25 | disposition home or self-care (01) ==
PROVIDERS: PCP Nurse Practitioner Family; Visit Provider Physician Assistant
DX: S46.001A Unspecified injury of muscle(s) and tendon(s) of the rotator cuff of right shoulder, initial encounter (principal); M75.41 Impingement syndrome of right shoulder
CPT/HCPCS: 20610; 99204

== ENCOUNTER → 2023-05-31 09:27 | Outpatient (BNVA) | payer OTHER, SELFPAY | PROVIDERS: PCP Nurse Practitioner Family; Visit Provider Physician Assistant | DX: M75.01 Adhesive capsulitis of right shoulder (principal); S46.001A Unspecified injury of muscle(s) and tendon(s) of the rotator cuff of right shoulder, initial encounter; W01.0XXA Fall on same level from slipping, tripping and stumbling without subsequent striking against object, initial encounter; Y93.E3 Activity, vacuuming; Y92.9 Unspecified place or not applicable; Y99.9 Unspecified external cause status | CPT/HCPCS: 20610; J1040 ==

== ENCOUNTER 2023-06-06 09:28 | Outpatient (REF) | payer OTHER, SELFPAY ==
--- NOTE | ~2023-06-06 | MR_ITS ---
EXAMINATION: MR SHOULDER WITHOUT CONTRAST, RIGHT CLINICAL INFORMATION: Right shoulder pain, swelling, decreased range of motion. Fall on 04/15/2023. COMPARISON: Right shoulder radiographs dated 04/15/2023. TECHNIQUE: MRI of the shoulder without contrast was performed on a high-field scanner. FINDINGS: ROTATOR CUFF: Moderate supraspinatus and mild infraspinatus tendinosis. There is bursal surface partial tearing of the junctional fibers measuring approximately 1.2 x 1.6 cm (AP x ML). Reactive marrow edema within the adjacent greater tuberosity. The articular surface tendon fibers remain intact. No full-thickness rotator cuff tendon tear. Mild edema within the proximal supraspinatus muscle belly, consistent with an acute muscle strain. No muscle atrophy or fatty infiltration. BICEPS: Intact. CORACOACROMIAL ARCH: The undersurface of the acromion is flat with moderate subacromial spurs. Moderate acromioclavicular osteoarthritis. Trace fluid and edema within the subacromial subdeltoid bursa, consistent with mild bursitis. LABRUM/CAPSULE: Linear fluid signal within the undersurface of the superior and posterosuperior labrum, consistent with nondisplaced undersurface tearing. Mild thickening and edema of the joint capsule, which can be seen in the setting of adhesive capsulitis. GLENOHUMERAL JOINT/MARROW: Intact articular cartilage. Trace joint effusion. MR/MR shoulder RT wo con IMPRESSION: 1. Moderate supraspinatus and mild infraspinatus tendinosis with bursal surface partial tearing of the junctional fibers measuring 1.2 x 1.6 cm (AP x ML). Reactive marrow edema within the adjacent greater tuberosity. No full-thickness rotator cuff tendon tear. Mild supraspinatus muscle strain. 2. Moderate acromioclavicular osteoarthritis with moderate subacromial spurs. 3. Mild subacromial subdeltoid bursitis. 4. Nondisplaced undersurface tear of the superior and posterosuperior labrum. 5. Mild thickening and edema of the joint capsule, which can be seen in the setting of adhesive capsulitis. 6. Trace glenohumeral joint effusion.
== END 2023-06-06 09:29 | disposition home or self-care (01) ==
LOC: HO.MRI 09:28
PROVIDERS: PCP Nurse Practitioner Family; Visit Provider Physician Assistant
DX: S46.001A Unspecified injury of muscle(s) and tendon(s) of the rotator cuff of right shoulder, initial encounter (principal)
CPT/HCPCS: 73221

== ENCOUNTER 2023-06-14 09:43 | Outpatient (AMB) | payer OTHER, SELFPAY ==
--- NOTE | 2023-06-14 09:59 | MHC.OFFVIS ---
Intake Intake Visit Reasons: OV - Right Shoulder MRI Review Intake Note: Ivy is a 58 year old right handed female who presents today for an MRI review of her right shoulder. She reports that her pain is severe and is affecting her daily activities. She has very limited and painful ROM of the right arm. Allergies mirtazapine [From Remeron] Adverse Reaction (Intermediate, Verified 05/31/23 08:22) Agitated clora prep Allergy (Unknown, Uncoded 05/16/23 14:44) rash HPI OV - Right Shoulder MRI Review HPI Details Ivy is a 58 year old woman who presents for an MRI review of her right shoulder pain. S/P fall on 05/16/23. Seen by PAPI Marcano and injected on 05/31/23. She complains of pain and limited ROM of her shoulder, worse with overhead & lifting activities, and at night. She says this is limiting her daily activities, and she feels some of her pain is sharp in her arm. She says it is similar to hitting her funny bone on a table. She found ~1 week of relief from her previous injection and has started PT last week. She has been taking NSAIDs daily which has helped her somewhat, and has found no relief from Flexeril or Biofreeze PFSH Medical History Adhesive capsulitis Centrilobular emphysema Depression with anxiety HLD (hyperlipidemia) Intraductal papilloma of left breast Peripheral vascular disease Postmenopause Primary insomnia Proctitis Surgical History History of esophagogastroduodenoscopy (EGD) History of intravascular stent placement Hx of colonoscopy Family History Father Cancer of prostate CAD (coronary artery disease) CHF (congestive heart failure) Diabetes mellitus Mother Brain cancer Myocardial infarction Sister Breast cancer Sister Crohn's disease Hepatitis B Brother No problems noted. Brother Cancer of prostate Son No problems noted. Son No problems noted. Daughter No problems noted. Family/Other Substance use disorder Social History (Updated 05/31/23 @ 09:48 by FLORIDALMA Levin) Housing: House Alcohol intake: never Patient Tobacco Use Status: Former Tobacco user Tobacco use type: Cigarette Cigarettes Per Day: 2 e-Cigarette/Vaping Use: Currently Using Second Hand Smoke Exposure: No service: No Current occupational status: employed Current occupation: right hand dominant Current occupational exposures/hazards: No Cognitive needs: No Hearing needs: No Vision needs: No Review of Systems Const All systems reviewed & are unremarkable except as noted in HPI and below Physical Exam Const General: no acute distress, alert and awake Orientation/consciousness: patient oriented x3 HEENT Head: Yes normocephalic and Yes atraumatic Eyes EOM: EOMs intact bilaterally Resp Effort & Inspection: normal respiratory effort and able to speak in complete sentences Cardio Jugular venous distension: no JVD Skin General skin exam: turgor normal Rashes: no rashes Neuro General: patient oriented x3 Extrem Other: Right Shoulder: Painful ER to 30 degrees Pain with empty can testing Shoulder in protected position with scapular protraction Psych Appearance: grossly normal Affect: normal affect Attitude: cooperative Results Reviewed Results Reviewed: I personally reviewed relevant MR images 1. Moderate supraspinatus and mild infraspinatus tendinosis with bursal surface partial tearing of the junctional fibers measuring 1.2 x 1.6 cm (AP x ML). Reactive marrow edema within the adjacent greater tuberosity. No full-thickness rotator cuff tendon tear. Mild supraspinatus muscle strain. ? 2. Moderate acromioclavicular osteoarthritis with moderate subacromial spurs. ? 3. Mild subacromial subdeltoid bursitis. ? 4. Nondisplaced undersurface tear of the superior and posterosuperior labrum. ? 5. Mild thickening and edema of the joint capsule, which can be seen in the setting of adhesive capsulitis. ? 6. Trace glenohumeral joint effusion. Assessment & Plan Assessment & Plan (1) Right shoulder tendinitis: Code(s): M77.8 - Other enthesopathies, not elsewhere classified Plan: This is a 58 year old woman with right shoulder tendinitis, S/P fall, DOI: 05/16/23. She has pain with daily activity, worse with overhead activity and at night, as well as limited ROM. She found ~1 week of relief from a steroid injection on 05/31/23 by PAPI Marcano and has been attending PT. I discussed her diagnosis and treatment options. I recommend NSAIDs, ice/heat prn, & she continue with PT for ROM and willa-scapular strengthening. I explained the importance of using her RUE for normal daily activities to prevent the development of adhesive capsulitis. I ordered a topical compounding cream for her to use and a new course of PT. She will follow up in 2 months. (2) Stiffness of right shoulder joint: Code(s): M25.611 - Stiffness of right shoulder, not elsewhere classified Plan: Acute, likely from disuse following a fall on 05/16/23. I encouraged gentle use of her shoulder. Plan Scribed for Pola Lane MD by Derick Lara, medical record librarians teacher, on 06/14/23 at 10:20 AM, EST. Orders: Orders PT Evaluation and Treatment 06/14/23 M77.8 - Other enthesopathies, not elsewhere classified Coding Level of Care Code Est Pt Level 3 (70327) Diagnoses Right shoulder tendinitis M77.8 Stiffness of right shoulder joint M25.611
== END 2023-06-14 10:48 | disposition home or self-care (01) ==
PROVIDERS: PCP Nurse Practitioner Family; Visit Provider Orthopaedic Surgery
DX: M77.8 Other enthesopathies, not elsewhere classified (principal); M25.611 Stiffness of right shoulder, not elsewhere classified
CPT/HCPCS: 99213

== ENCOUNTER → 2023-06-14 09:43 | Outpatient (BNVA) | payer OTHER, SELFPAY | PROVIDERS: PCP Nurse Practitioner Family; Visit Provider Orthopaedic Surgery | DX: M25.611 Stiffness of right shoulder, not elsewhere classified (principal); M77.8 Other enthesopathies, not elsewhere classified | CPT/HCPCS: 99212 ==

== ENCOUNTER 2023-06-25 13:18 | Outpatient (AMB) | payer OTHER, SELFPAY ==
--- NOTE | 2023-06-25 13:34 | MHC.PC.OV ---
Vital Signs 06/25/23 13:36 Height 5 ft 4 in Weight 152 lb 4 oz BMI 26.1 BP 130/78 Blood Pressure Location Rt brachial Position Sitting Pulse 104 H Pulse Source Pulse Oximeter Pulse Oximetry (%) 96 Oxygen Delivery Method Room Air Intake Visit Reasons: PE Intake Note: pt is here for a PE Allergies mirtazapine [From Remeron] Adverse Reaction (Intermediate, Verified 06/25/23 13:38) Agitated clora prep Allergy (Unknown, Uncoded 06/25/23 13:38) rash Medication List - Last Reconciled 06/25/23 by KATHRINE VillaP-BC aspirin (Ecotrin Low Strength) 81 mg PO DAILY atorvastatin 40 mg PO BEDTIME 90 days clonazepam 0.5 mg PO DAILY PRN 15 days doxepin mg PO escitalopram oxalate 10 mg PO DAILY flu vaccine [id number](6mos up) mL IM sennosides (senna) 8.6 mg PO DAILY PRN Tobacco use date assessed: 06/25/23 Dental Screening Dental Screen Date: 06/25/23 Did you have a dental visit in the last 12 months?: No Did you have a dental problem in the last 6 months where you did not have access to dental care?: No Was dental information given to patient?: No HPI PE HPI Details Pt is here for a PE. Will order labs. Colon screen is up to date. Mammo is up to date. Due for bone density, will order. Pt reports falling on 04/16 and injuring her right shoulder. She had an xr which showed no acute process. Mild to moderate narrowing of the right glenohumeral joint. Pt had a subsequent MRI which showed moderate supraspinatus and mild infraspinatus tendinosis with bursal surface partial tearing of the junctional fibers measuring 1.2 x 1.6 cm (AP x ML). Reactive marrow edema within the adjacent greater tuberosity. No full-thickness rotator cuff tendon tear. Mild supraspinatus muscle strain. Moderate acromioclavicular osteoarthritis with moderate subacromial spurs. Mild subacromial subdeltoid bursitis. Nondisplaced undersurface tear of the superior and posterosuperior labrum. Mild thickening and edema of the joint capsule, which can be seen in the setting of adhesive capsulitis. Trace glenohumeral joint effusion. She has seen ortho who referred her to PT. She has tried this with little results. Pt would like a second opinion, will refer to [facility]. [facility] Medical History Adhesive capsulitis Centrilobular emphysema Depression with anxiety HLD (hyperlipidemia) Intraductal papilloma of left breast Peripheral vascular disease Postmenopause Primary insomnia Proctitis Surgical History History of esophagogastroduodenoscopy (EGD) History of intravascular stent placement Hx of colonoscopy Family History Father Cancer of prostate CAD (coronary artery disease) CHF (congestive heart failure) Diabetes mellitus Mother Brain cancer Myocardial infarction Sister Breast cancer Sister Crohn's disease Hepatitis B Brother No problems noted. Brother Cancer of prostate Son No problems noted. Son No problems noted. Daughter No problems noted. 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 Jorge Gonzales, Juani Greard, Anuel Charles and colleagues, with an educational jennie from [employer]. Review of Systems Const Denies chills and Denies fever(s) Eyes Denies blurry vision ENT Denies vertigo, Denies dizziness and Denies sore throat Card Denies chest pain at rest, Denies chest pain with activity, Denies diaphoresis, Denies dyspnea and Denies dyspnea on exertion Resp Denies cough, Denies dyspnea, Denies dyspnea on exertion and Denies wheezing GI Denies abdominal pain, Denies melena, Denies hematochezia, Denies constipation, Denies diarrhea and Denies loose stools Denies hematuria Musc Denies numbness and Denies tingling Skin/Breast Denies lesions Neuro Denies vertigo, Denies dizziness, Denies numbness and Denies tingling Psych Denies anxiety, Denies depression, Denies homicidal ideation, Denies suicidal ideation and Denies other (substance abuse) Aller/Immun Denies wheezing Physical exam (Primary Care) Vital Signs: Last Vital Signs Pulse 104 H 06/25/23 13:36 BP 130/78 06/25/23 13:36 Pulse Ox 96 06/25/23 13:36 Oxygen Delivery Method Room Air 06/25/23 13:36 BMI result Body Mass Index 26.1 Tobacco/Smoking Status: Tobacco use Status Tobacco use date assessed 06/25/23 06/25/23 13:43 Patient Tobacco Use Status Former Tobacco user 06/25/23 13:34 Tobacco use type Cigarette 06/25/23 13:34 e-Cigarette/Vaping Use Currently Using 06/25/23 13:34 Thrive Assessment: Date of Thrive Assessment Date Thrive assessed 11/21/21 06/25/23 13:34 Const General: cooperative Nutritional Appearance: well nourished Orientation/consciousness: patient oriented x3 HENMT Head: Yes normal to inspection, Yes normocephalic and Yes atraumatic Ears: TM's normal bilaterally Eyes General: appearance normal, both eyes and all related structures Alignment and Position: alignment normal and position normal Neck Neck: Yes normal visual inspection and Yes no lymphadenopathy Thyroid: Thyroid normal Resp Effort & Inspection: normal respiratory effort Auscultation: clear to auscultation bilaterally Cardio Rate: regular rate Rhythm: regular rhythm Heart sounds: S1 normal heart sound present, S2 normal heart sound present and no murmurs GI Palpation (GI): Soft to palpation and nontender Auscultation: normal bowel sounds Skin Rashes: no rashes Neuro General: patient oriented x3, moves all extremities, no focal motor deficits and deep tendon reflexes 2+ bilaterally Romberg Test: Negative Extrem Other: limited ROM guarding of RUE Psych Appearance: grossly normal Mental Status: mental status grossly normal Speech and movement: Normal speech and movement present Affect: normal affect Attitude: cooperative Thought process: Normal thought process present Thought content: Normal thought content present Insight: Good insight present (Psych) Judgement: Good judgement present (Psych) Assessment and Plan Assessment & Plan (1) Stiffness of right shoulder joint: Code(s): M25.611 - Stiffness of right shoulder, not elsewhere classified Plan: Referred to [facility] (2) Injury of right rotator cuff: Code(s): S46.001A - Unspecified injury of muscle(s) and tendon(s) of the rotator cuff of right shoulder, initial encounter Plan: Referred to [facility] (3) Right shoulder tendinitis: Code(s): M77.8 - Other enthesopathies, not elsewhere classified Plan: Referred to [facility] (4) Postmenopause: Code(s): Z78.0 - Asymptomatic menopausal state Plan: Bone density ordered Plan The patient agreed to the use of a medical staff manager for this encounter. Scribed for INGE Huang by Val Mcgee medical staff manager, on 06/25/2023 at 13:55 EST. Orders: Orders XR DEXA axial skeleton Today Z78.0 - Asymptomatic menopausal state Vitamin D 25-OH Total Today Z78.0 - Asymptomatic menopausal state Referrals Orthopedics Referral M25.611 - Stiffness of right shoulder, not elsewhere classified, M77.8 - Other enthesopathies, not elsewhere classified, S46.001A - Unspecified injury of muscle(s) and tendon(s) of the rotator cuff of right shoulder, initial encounter Coding Level of Care Code Est Pt Prev Care 40-64y(81324) Diagnoses Stiffness of right shoulder joint M25.611 Injury of right rotator cuff S46.001A Right shoulder tendinitis M77.8 Postmenopause Z78.0
[2023-06-25 13:36] VITALS: BP 130/78; PULSE 104; O2SAT 96; BMI 26.1
== END 2023-06-25 14:40 | disposition home or self-care (01) ==
PROVIDERS: Visit Provider Nurse Practitioner Family
DX: Z00.00 Encounter for general adult medical examination without abnormal findings (principal); M25.611 Stiffness of right shoulder, not elsewhere classified; S46.001A Unspecified injury of muscle(s) and tendon(s) of the rotator cuff of right shoulder, initial encounter; M77.8 Other enthesopathies, not elsewhere classified; Z78.0 Asymptomatic menopausal state
CPT/HCPCS: 99396

== ENCOUNTER 2023-07-08 06:43 | Outpatient (REF) | payer OTHER, SELFPAY ==
[2023-07-08 11:15] LABS: MANUAL DIFF FLAG NO
[2023-07-08 11:25] LABS: Appearance Urine Turbid; Color Urine Yellow; Glucose Urine UA Negative (Negative); Leukocyte Esterase Urine Small (1+) (Negative); Nitrite Urine Negative (Negative); PH 5.5 (5.0-9.0); Specific Gravity - Urine 1.025 (1.005-1.025); UMIC TRIGGER UACC YES; Urine Blood Small (1+) (Negative); Urine Ketones Trace mg/dL (Negative); Urine Protein Negative (Neg-Trace)
[2023-07-08 11:34] LABS: Basophils Percent Auto 0.9 % (0-2); Eosinophils Percent Auto 0.7 % (0-4); Hematocrit 42.7 % (37.0-47.0); Hemoglobin 13.8 g/dl (12.0-16.0); Imm Gran Abs Auto 0.01 X10*3/uL (0.00-0.03); Imm Gran Pct Auto 0.2 % (0.0-0.4); Lymphocytes Absolute Auto 1.3 X10*3/uL (1.2-4.9); Lymphocytes Percent Auto 30.1 % (20-40); Mean Corpuscular HGB Conc 32.3 g/dl (31.0-35.0); Mean Corpuscular Hemoglobin 29.8 pg (27.0-33.0); Mean Corpuscular Volume 92.2 fL (80.0-98.0); Mean Platelet Volume 10.9 fL (9.4-12.3); Monocytes Absolute Auto 0.4 X10*3/uL (0.1-1.2); Monocytes Percent Auto 8.5 % (2-11); Neutrophils Absolute Auto 2.5 x10*3/uL (2.0-8.3); Neutrophils Percent Auto 59.6 % (45-73); Platelet Count 220 X10*3/uL (160-400); Red Blood Count 4.63 X10*6/uL (4.20-5.50); White Blood Count 4.3 X10*3/uL (4.8-10.8)
[2023-07-08 11:38] LABS: Bacteria Urine None Seen (None Seen); Calcium Oxalate Crystals Urine Present; Hyaline Casts Urine 0-2 /LPF (0-2); UACC Culture Trigger YES
[2023-07-08 12:31] LABS: Alanine Aminotransferase 24 U/L (0-31); Albumin Level 4.3 g/dL (3.5-5.0); Alkaline Phosphatase 99 U/L (39-117); Anion Gap 12 (12-20); Aspartate Amino Transferase 15 U/L (5-31); Bilirubin Total 0.5 mg/dL (0.0-1.0); Blood Urea Nitrogen 17 mg/dL (9-16); Calcium 9.8 mg/dL (8.4-10.2); Carbon Dioxide 26 mmol/L (22-29); Chloride 108 mmol/L (96-108); Cholesterol 141 mg/dL (<200); Estimated Glomerular Filt Rate > 60; Glucose Fasting 78 mg/dL (60-99); HDL Cholesterol 57 mg/dL (>40); LDL Cholesterol Calculated 75 mg/dL (<100); Potassium 4.3 mmol/L (3.3-5.1); Sodium 142 mmol/L (135-145); Total Protein 6.6 g/dL (6.5-8.0); Triglycerides 46 mg/dL (<150)
[2023-07-08 12:32] LABS: TSH reflex Free T4 1.82 uIU/mL (0.32-4.0); Vitamin D 25-OH Total 45.4 ng/mL (>30)
== END 2023-07-08 06:44 | disposition home or self-care (01) ==
LOC: HO.HMGCLDS 06:43
PROVIDERS: PCP Nurse Practitioner Family; Visit Provider Nurse Practitioner Family
DX: F41.9 Anxiety disorder, unspecified (principal); F32.A Depression, unspecified; Z78.0 Asymptomatic menopausal state
CPT/HCPCS: 36415; 80053; 80061; 81001; 82306; 84443; 85025; 87086

== ENCOUNTER 2023-07-09 10:00 | Outpatient (RCR) | payer OTHER, SELFPAY ==
--- NOTE | 2023-06-05 09:57 | MHC.PT.EP ---
[facility] [place] Office [place] Office [place] Office [address] [phone] F: [phone] F: [phone] F: [phone] F: [phone] Physical Therapy Plan of Care Date of Evaluation: Date of Surgery: Diagnosis: adhesive capsulitis Assessment: Patient is a 58 year old R handed female who presents with s/s consistent with adhesive capsulitis, shoulder pain. 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 Patient past medical history includes PVD. Current impairments include pain, posture, ROM, strength, activity tolerance and functional mobility. Functional limitations include decreased ability to use RUE for all functional activities. Patient is motivated with good rehab potential. Skilled PT will address impairments and functional limitations in order to achieve goals. 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 Manual therapy to restore motion and function. Therapeutic exercise to improve strength and flexibility. Neuromuscular re-education for posture and balance. Therapeutic activities to return to functional activities of daily living. Electronically signed by: Shaggy Pabon, PT Please sign and return to therapist. Thank you for your referral.
--- NOTE | 2023-11-05 11:39 | MHC.PT.DC ---
[facility] [place] Office [place] Office [place] Office [address] Yane Mcpherson [address] [phone] F: [phone] F: [phone] F: [phone] F: [phone] Physical Therapy Discharge Report Diagnosis: adhesive capsulitis Date of Surgery: Date of Evaluation: 06/05/23 Date of Discharge: 07/28/23 Treatments to Date: 8 Cancellations to Date: No Shows to Date: Discharge Status: Patient Elected to Stop Discharge Summary: 07/09/23: pt continues to have a tough time progressing due to pain. discussed compensatory patterns and s/s that can result including elevated R first rib and R lat epicondyle tendinitis. 07/04/23: pt missed last visit due to illness. she has been demonstrating decline in cuff strength and poor tolerance to addressing this. 06/27/23: still very limited in ER by pain. we have been having a tough time progressing. pt will be pursuing 2nd opinion and keeping up with HEP in the meantime. 06/25/23: pt still very tender, in pain with functional movements. we did review MRI again as I encouraged her to pursue second opinion for peace of mind. 06/18/23: pt notes there are no plans of surgery after MD appt to review MRI. we will attempt to progress skilled PT to improve ROM, strength, function while managing pain. PROM ER to 30 today. 06/11/23: pt still with supraclavicular swelling. gentle ROM, pain free ROM pursued today. still very limited by pain. 06/07/23: pt has been unable to perform HEP due to MRI and resulting pain. Patient is a 58 year old R handed female who presents with s/s consistent with adhesive capsulitis, shoulder pain. 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 Patient past medical history includes PVD. Current impairments include pain, posture, ROM, strength, activity tolerance and functional mobility. Functional limitations include decreased ability to use RUE for all functional activities. Patient is motivated with good rehab potential. Skilled PT will address impairments and functional limitations in order to achieve goals. Electronically signed by: Shaggy Pabon, PT Please sign and return to therapist. Thank you for your referral.
== END 2023-11-05 11:40 | disposition home or self-care (01) ==
LOC: HO.PTCHIC 10:00
PROVIDERS: PCP Nurse Practitioner Family; Visit Provider Physician Assistant
DX: M77.8 Other enthesopathies, not elsewhere classified (principal); M75.01 Adhesive capsulitis of right shoulder
CPT/HCPCS: 97110; 97140; 97162

== ENCOUNTER 2023-09-05 09:00 | Outpatient (RCR) | payer OTHER, SELFPAY | END 2023-11-05 11:42 | disposition home or self-care (01) | LOC: HO.PTCHIC 09:00 | PROVIDERS: PCP Nurse Practitioner Family; Visit Provider Physician Assistant | DX: M75.101 Unspecified rotator cuff tear or rupture of right shoulder, not specified as traumatic (principal) | CPT/HCPCS: 97014; 97110; 97140; 97162 ==

== ENCOUNTER 2023-09-11 08:57 | Outpatient (REF) | payer OTHER, SELFPAY ==
[2023-09-11 12:02] LABS: Appearance Urine Turbid; Color Urine Dark Yellow; Glucose Urine UA Negative (Negative); Leukocyte Esterase Urine Negative (Negative); Nitrite Urine Negative (Negative); PH 5.5 (5.0-9.0); Specific Gravity - Urine >= 1.030 (1.005-1.025); Urine Blood Negative (Negative); Urine Ketones Trace mg/dL (Negative); Urine Protein Trace mg/dL (Neg-Trace)
== END 2023-09-11 08:58 | disposition home or self-care (01) ==
LOC: HO.HMGCLDS 08:57
PROVIDERS: PCP Nurse Practitioner Family; Visit Provider Nurse Practitioner Family
DX: F41.9 Anxiety disorder, unspecified (principal); F32.A Depression, unspecified
CPT/HCPCS: 81003

== ENCOUNTER 2023-09-27 10:00 | Outpatient (RCR) | payer OTHER, SELFPAY | END 2023-11-05 11:44 | disposition home or self-care (01) | LOC: HO.PTCHIC 10:00 | PROVIDERS: PCP Nurse Practitioner Family; Visit Provider Physician Assistant | DX: M75.01 Adhesive capsulitis of right shoulder (principal); M75.101 Unspecified rotator cuff tear or rupture of right shoulder, not specified as traumatic | CPT/HCPCS: 97110; 97140; 97162 ==

== ENCOUNTER 2023-12-26 12:52 | Outpatient (AMB) | payer OTHER, SELFPAY ==
--- NOTE | 2023-12-26 12:53 | MHC.PC.OV ---
Vital Signs 12/26/23 12:54 Height 5 ft 4 in Weight 152 lb 2 oz BMI 26.1 BP 132/76 Blood Pressure Location Lt brachial Position Sitting Pulse 84 Pulse Source Pulse Oximeter Pulse Oximetry (%) 97 Oxygen Delivery Method Room Air Intake Visit Reasons: 6 month fu Intake Note: pt is here for 6 month follow up Nutrition Services Aide Required: No Accompanied by: Self / Same As Patient Allergies mirtazapine [From Remeron] Adverse Reaction (Intermediate, Verified 12/26/23 12:57) Agitated oxycodone Adverse Reaction (Intermediate, Verified 12/26/23 13:05) Rash oxycodone Allergy (Intermediate, Uncoded 12/26/23 13:21) Hives clora prep Allergy (Unknown, Uncoded 12/26/23 12:57) rash Medication List - Last Reconciled 12/26/23 by INGE Villa aspirin (Ecotrin Low Strength) 81 mg PO DAILY atorvastatin 40 mg PO BEDTIME 90 days clonazepam 0.5 mg PO DAILY PRN 15 days doxepin mg PO escitalopram oxalate 20 mg PO DAILY escitalopram oxalate 10 mg PO DAILY sennosides (senna) 8.6 mg PO DAILY PRN Tobacco use date assessed: 12/26/23 Dental Screening Dental Screen Date: 12/26/23 Did you have a dental visit in the last 12 months?: No Did you have a dental problem in the last 6 months where you did not have access to dental care?: No Was dental information given to patient?: Patient has dentist HPI 6 month fu HPI Details Pt underwent right shoulder surgery on 11/27/2022 (anchoring of bicep tendon, extensive removal of shoulder joint tissue using an endoscopy, partial removal of collar bone at shoulder using an endoscopy, shaving of shoulder bone using an endoscope, repair of shoulder rotator cuff using an endoscope, release of shoulder biceps tendon using an endoscope). She is following up with ortho. Pt reports ongoing extensive pain. She is allergic to oxycodone (hives). Would like to try tramadol, though pt will contact her ortho provider for permission. Denies fever, chills, and dizziness. [facility] Medical History Adhesive capsulitis Postmenopause Centrilobular emphysema Intraductal papilloma of left breast Primary insomnia Depression with anxiety Peripheral vascular disease Proctitis HLD (hyperlipidemia) Surgical History (Updated 12/26/23 @ 17:23 by INGE Villa) History of shoulder surgery Hx of colonoscopy History of esophagogastroduodenoscopy (EGD) History of intravascular stent placement Family History Father Cancer of prostate CAD (coronary artery disease) CHF (congestive heart failure) Diabetes mellitus Mother Brain cancer Myocardial infarction Sister Breast cancer Sister Crohn's disease Hepatitis B Brother No problems noted. Brother Cancer of prostate Son No problems noted. Son No problems noted. Daughter No problems noted. Family/Other Substance use disorder Social History Housing: House Alcohol intake: never Patient Tobacco Use Status: Former Tobacco user Tobacco use type: Cigarette Cigarettes Per Day: 2 e-Cigarette/Vaping Use: Currently Using Second Hand Smoke Exposure: No service: No Current occupational status: employed Current occupation: right hand dominant Current occupational exposures/hazards: No Cognitive needs: No Hearing needs: No Vision needs: No Questionnaire PHQ-9 Over the last 2 weeks, how often have you been bothered by any of the following problems? 1. Little interest or pleasure in doing things: nearly every day (since she had her bicep and tricep repaird- colar bone, shoulder bone, rotator cuff repair) 2. Feeling down, depressed, or hopeless: nearly every day 3. Trouble falling or staying asleep, or sleeping too much: nearly every day 4. Feeling tired or having little energy: nearly every day 5. Poor appetite or overeating: several days 6. Feeling bad about yourself - or that you are a failure or have let yourself or your family down: several days 7. Trouble concentrating on things, such as reading the newspaper or watching television: not at all 8. Moving or speaking so slowly that other people could have noticed. Or the opposite - being so fidgety or restless that you have been moving around a lot more than usual: not at all 9. Thoughts that you would be better off or of hurting yourself in some way: not at all Total score: 14 Depression Screening Interpretation: Positive Depression Screening Follow-up: Existing condition and In treatment Depression Screening Done: Yes Source: Developed by Drs. Jorge Gonzales, Anuel Roman and colleagues, with an educational jennie from [employer]. Thrive Questionnaire Date Thrive assessed: 11/21/21 AUDIT C Alcohol Use Questionnaire (AUDIT-C) 1. How often do you have a drink containing alcohol?: Never 3. How often do you have six or more drinks on one occasion?: Never Total Score: 0 MARILYNN-7 AMB Questionnaire MARILYNN-7 Date MARILYNN - 7 assessed: 12/26/23 Feeling nervous, anxious, or on edge: 3 = Nearly every day Not being able to stop or control worryin = Nearly every day Worrying too much about different things: 0 = Not at all Trouble relaxin = Nearly every day Being so restless that it is hard to sit still: 3 = Nearly every day Becoming easily annoyed or irritable: 3 = Nearly every day Feeling afraid as if something awful might happen: 0 = Not at all Total MARILYNN-7 score (0-4 normal; 5-9 mild; 10-14 moderate; 15-21 severe): 15 Source: Developed by Drs. Jorge Gonzales, Anuel Roman and colleagues, with an educational jennie from [employer]. MARILYNN-7 Assessment Billing MARILYNN-7 Assessment Tool: MARILYNN-7 Assessment 53825 (in treatment) Review of Systems Const Reports as per HPI Physical exam (Primary Care) Vital Signs: Last Vital Signs Pulse 84 12/26/23 12:54 BP 132/76 12/26/23 12:54 Pulse Ox 97 12/26/23 12:54 Oxygen Delivery Method Room Air 12/26/23 12:54 BMI result Body Mass Index 26.1 Tobacco/Smoking Status: Tobacco use Status Tobacco use date assessed 12/26/23 12/26/23 13:04 Patient Tobacco Use Status Former Tobacco user 12/26/23 12:55 Tobacco use type Cigarette 12/26/23 12:55 e-Cigarette/Vaping Use Currently Using 12/26/23 12:55 PHQ-9: PHQ-9 Score PHQ-9: Total score 14 12/26/23 17:19 Depression Screening Interpretation: Positive Depression Screening Follow-up: Existing condition and In treatment Thrive Assessment: Date of Thrive Assessment Date Thrive assessed 11/21/21 12/26/23 12:55 Const General: cooperative Orientation/consciousness: patient oriented x3 Resp Effort & Inspection: normal respiratory effort Auscultation: clear to auscultation bilaterally Cardio Rate: regular rate Rhythm: regular rhythm Heart sounds: S1 normal heart sound present and S2 normal heart sound present Neuro General: patient oriented x3 Extrem Other: surgical sling present, + right hand grasp, + radial pulse (+ cap refill of hand) Psych Appearance: grossly normal Mental Status: mental status grossly normal Speech and movement: Normal speech and movement present Affect: normal affect Attitude: cooperative Thought process: Normal thought process present Thought content: Normal thought content present Insight: Good insight present (Psych) Judgement: Good judgement present (Psych) Assessment and Plan Assessment & Plan (1) Injury of right rotator cuff: Code(s): S46.001A - Unspecified injury of muscle(s) and tendon(s) of the rotator cuff of right shoulder, initial encounter (2) Stiffness of right shoulder joint: Code(s): M25.611 - Stiffness of right shoulder, not elsewhere classified (3) History of shoulder surgery: Comment: 11/27/2022 Code(s): Z98.890 - Other specified postprocedural states (4) Right shoulder tendinitis: Code(s): M77.8 - Other enthesopathies, not elsewhere classified Plan The patient agreed to the use of a curator medical museum for this encounter. Scribed for INGE Huang by Val Mcgee curator medical museum, on 12/26/2023 at 13:20 EST. Coding Level of Care Code Est Pt Level 3 (99258) Diagnoses Injury of right rotator cuff S46.001A Stiffness of right shoulder joint M25.611 History of shoulder surgery Z98.890 Right shoulder tendinitis M77.8 Additional Codes MARILYNN-7 Assessment Billing - MARILYNN-7 Assessment Tool: MARILYNN-7 Assessment 38013 ([id number])
[2023-12-26 12:54] VITALS: BP 132/76; PULSE 84; O2SAT 97; BMI 26.1
== END 2023-12-26 13:38 | disposition home or self-care (01) ==
PROVIDERS: PCP Nurse Practitioner Family; Visit Provider Nurse Practitioner Family
DX: S46.001A Unspecified injury of muscle(s) and tendon(s) of the rotator cuff of right shoulder, initial encounter (principal); M25.611 Stiffness of right shoulder, not elsewhere classified; Z98.890 Other specified postprocedural states; M77.8 Other enthesopathies, not elsewhere classified
CPT/HCPCS: 99213

== ENCOUNTER 2024-03-19 10:00 | Outpatient (RCR) | payer OTHER, SELFPAY | END 2024-04-29 14:26 | disposition home or self-care (01) | LOC: HO.PTCHIC 10:00 | PROVIDERS: PCP Nurse Practitioner Family; Visit Provider Orthopaedic Surgery | DX: M75.41 Impingement syndrome of right shoulder (principal); M75.21 Bicipital tendinitis, right shoulder; M75.42 Impingement syndrome of left shoulder; M75.22 Bicipital tendinitis, left shoulder | CPT/HCPCS: 97110; 97140; 97162; 97164 ==

== ENCOUNTER 2024-03-31 12:36 | Outpatient (AMB) | payer OTHER, SELFPAY ==
--- NOTE | 2024-03-31 12:38 | A.OFFVIS_ITS ---
Vital Signs 03/31/24 12:39 Height 5 ft 4 in Weight 145 lb 8.081 oz BMI 25.0 BP 104/48 L Blood Pressure Location Rt brachial Position Sitting Pulse 80 Intake Visit Reasons: appointment moved up per sherie Intake Note: Ivy presents in the office as a follow up. CC: Bleeding and puss in her bowels. She denies diarrhea. She had a BM today and she has not had a normal one in 7 days. Director Internal Control Required: No Allergies mirtazapine [From Remeron] Adverse Reaction (Intermediate, Verified 03/31/24 12:41) Agitated oxycodone Adverse Reaction (Intermediate, Verified 03/31/24 12:41) Rash oxycodone Allergy (Intermediate, Uncoded 03/31/24 12:41) Hives clora prep Allergy (Unknown, Uncoded 03/31/24 12:41) rash HPI HPI appointment moved up per sherie: Details: LAST VISIT:11/28/2022 IBS (irritable bowel syndrome) Continue low FODMAP diet. Patient is controlling her symptoms of abdominal distension and discomfort with food only. No longer requires any medications. Patient states that she is moving her bowels better Constipation Continue senna on as needed basis. Patient was encouraged to also increase fluids and activity to promote better bowel motility. I will see patient in 1 year, sooner on as needed basis. Patient is agreeable to this plan and temo balizes understanding of instructions. She was given the opportunity to ask questions and all questions answered. ? TODAY'S VISIT Patient is here today for requested visit. Patient reports that over 1 week ago she started having abdominal discomfort, bloating and mucousy stools. Patient reports that her stool is light brown very thin, lot of mucus, some of the mucus looks like pus. Patient reports very smelly stools. Patient reports that she feels like when she was diagnosed with colitis in the past. Patient reports like she has chills and fever. Denies any nausea or vomiting. Denies traveling anywhere. No one else in the household with similar symptoms. Patient reports small amount of blood in his stool as well. No change in her diet. Patient recently had shoulder surgery and has been on pin pain medications. Patient does not feel like she is constipated [facility] Medical History Adhesive capsulitis Postmenopause Centrilobular emphysema Intraductal papilloma of left breast Primary insomnia Depression with anxiety Peripheral vascular disease Proctitis HLD (hyperlipidemia) Surgical History (Updated 03/31/24 @ 12:41 by FLORIDALMA Polk) Hx of rotator cuff surgery History of shoulder surgery Hx of colonoscopy History of esophagogastroduodenoscopy (EGD) History of intravascular stent placement Family History Father Cancer of prostate CAD (coronary artery disease) CHF (congestive heart failure) Diabetes mellitus Mother Brain cancer Myocardial infarction Sister Breast cancer Sister Crohn's disease Hepatitis B Brother No problems noted. Brother Cancer of prostate Son No problems noted. Son No problems noted. Daughter No problems noted. Family/Other Substance use disorder Social History Housing: House Alcohol intake: never Patient Tobacco Use Status: Former Tobacco user Tobacco use type: Cigarette Cigarettes Per Day: 2 e-Cigarette/Vaping Use: Currently Using Second Hand Smoke Exposure: No service: No Current occupational status: employed Current occupation: right hand dominant Current occupational exposures/hazards: No Cognitive needs: No Hearing needs: No Vision needs: No Review of Systems Const Details: Reports fevers Denies weight gain and Denies weight loss ENT Reports no additional complaints, Denies dysphagia and Denies odynophagia Card Reports no additional complaints Resp Reports no additional complaints GI Reports abdominal pain, Denies belching, Denies melena, Reports bloating, Reports hematochezia, Denies change in bowel habits, Denies dysphagia, Denies excessive flatus, Denies dyspepsia, Denies heartburn, Denies diarrhea, Reports loose stools, Denies nausea, Denies odynophagia, Denies vomiting and Reports other (Mucus in the stool) Reports no additional complaints Musc Reports no additional complaints Neuro Reports no additional complaints Psych Reports no additional complaints Endo Reports no additional complaints Physical Exam Vital Signs: BMI result Body Mass Index 25.0 Const General: healthy appearing, no acute distress and well developed Nutritional Appearance: well nourished Orientation/consciousness: patient oriented x3 Resp Effort & Inspection: normal respiratory effort, able to speak in complete sentences, no tracheal deviation and symmetric chest movement Auscultation: clear to auscultation bilaterally Cardio Rate: regular rate GI Inspection: Yes normal to inspection and No distended Palpation (GI): Soft to palpation, not firm, nontender and No hepatosplenomegaly present Auscultation: normal bowel sounds General: Yes no CVA tenderness Back/Spine/Pelvis Back: no CVA tenderness Skin General skin exam: elasticity normal, turgor normal and dry skin Neuro General: patient oriented x3 Psych Appearance: grossly normal Mental Status: mental status grossly normal Assessment & Plan Assessment & Plan (1) Abdominal pain: Code(s): R10.9 - Unspecified abdominal pain Qualifiers: Abdominal location: lower abdomen, unspecified Qualified Code(s): R10.30 - Lower abdominal pain, unspecified (2) Diarrhea: Code(s): R19.7 - Diarrhea, unspecified Qualifiers: Diarrhea type: functional diarrhea Qualified Code(s): K59.1 - Functional diarrhea (3) Rectal bleed: Code(s): K62.5 - Hemorrhage of anus and rectum Plan Continue avoiding dietary triggers. Patient will start taking Citrucel to help her bulk her stool and Dulcolax to help her evacuate her bowels better. Will check for C diff, GI panel. CBC to rule out leukocytosis. Patient has a history of proctitis and colitis. Will send her for CT scan. Patient was encouraged to increase fluid intake and activity to promote better bowel motility. Patient will return after her CT scan to discuss results. Patient will be due to go for colonoscopy as well. She is agreeable to plan of care and verbalizes understanding of instructions. She was given the opportunity to ask questions and all questions answered. Thank you for allowing me to participate in her care Orders: Orders C Reactive Protein Today K58.9 - Irritable bowel syndrome without diarrhea Complete Blood Count no Diff Today K21.9 - Gastro-esophageal reflux disease without esophagitis Comprehensive Met. Panel Today K21.9 - Gastro-esophageal reflux disease without esophagitis Lipase Today R10.9 - Unspecified abdominal pain CDiff Gene PCR Today R19.7 - Diarrhea, unspecified GI Panel Today R19.7 - Diarrhea, unspecified CT abdomen pelvis w IV con Today R10.9 - Unspecified abdominal pain, R19.7 - Diarrhea, unspecified, R50.9 - Fever, unspecified, Z87.19 - Personal history of other diseases of the digestive system Medications: New methylcellulose (laxative) (Citrucel) take it with full glass of water 500 mg PO DAILY 30 tabs 2RF K59.00 - Constipation, unspecified bisacodyl (Dulcolax (bisacodyl)) 10 mg (2 x 5 mg) PO BEDTIME 180 tabs 4RF Coding Level of Care Code Est Pt Level 4 (04280) Diagnoses Lower abdominal pain R10.30 Abdominal location: lower abdomen, unspecified Functional diarrhea K59.1 Diarrhea type: functional diarrhea Rectal bleed K62.5 Time Spent (min) 40 Comment 25 minutes spent with patient and additional 15 minutes spent reviewing her records
[2024-03-31 12:39] VITALS: BP 104/48; PULSE 80; BMI 25.0
== END 2024-03-31 13:28 | disposition home or self-care (01) ==
PROVIDERS: PCP Nurse Practitioner Family; Visit Provider Nurse Practitioner Family
DX: R10.30 Lower abdominal pain, unspecified (principal); K59.1 Functional diarrhea; K62.5 Hemorrhage of anus and rectum
CPT/HCPCS: 99214

== ENCOUNTER 2024-03-31 12:36 | Outpatient (REF) | payer OTHER, SELFPAY ==
[2024-03-31 14:02] LABS: Hematocrit 45.1 % (37.0-47.0); Hemoglobin 14.9 g/dl (12.0-16.0); Mean Corpuscular Hemoglobin 29.6 pg (27.0-33.0); Mean Corpuscular Volume 89.7 fL (80.0-98.0); Mean Platelet Volume 10.6 fL (9.4-12.3); Platelet Count 216 X10*3/uL (160-400); Red Blood Count 5.03 X10*6/uL (4.20-5.50); Red Cell Distribution Width 12.3 % (11.0-16.0); White Blood Count 6.6 X10*3/uL (4.8-10.8)
[2024-03-31 14:33] LABS: Alanine Aminotransferase 15 U/L (0-31); Albumin Level 4.6 g/dL (3.5-5.0); Alkaline Phosphatase 126 U/L (39-117); Anion Gap 13 (12-20); Aspartate Amino Transferase 13 U/L (5-31); Bilirubin Total 0.5 mg/dL (0.0-1.0); Blood Urea Nitrogen 17 mg/dL (9-16); C Reactive Protein 0.15 mg/dL (< or = 0.50); Calcium 10.6 mg/dL (8.4-10.2); Carbon Dioxide 30 mmol/L (22-29); Chloride 109 mmol/L (96-108); Estimated Glomerular Filt Rate > 60; Glucose Random 98 mg/dL (60-115); Lipase 31 U/L (8-78); Sodium 146 mmol/L (135-145); Total Protein 7.1 g/dL (6.5-8.0)
== END 2024-03-31 12:37 | disposition home or self-care (01) ==
LOC: HO.LAB 12:36
PROVIDERS: PCP Nurse Practitioner Family; Visit Provider Nurse Practitioner Family
DX: K21.9 Gastro-esophageal reflux disease without esophagitis (principal); R10.30 Lower abdominal pain, unspecified; K59.1 Functional diarrhea; K58.9 Irritable bowel syndrome, unspecified; K62.5 Hemorrhage of anus and rectum; Z87.19 Personal history of other diseases of the digestive system
CPT/HCPCS: 36415; 80053; 83690; 85027; 86140; 99212

== ENCOUNTER 2024-03-31 20:00 | Outpatient (REF) | payer OTHER, SELFPAY ==
[2024-04-01 11:57] LABS: CDiff Gene PCR NEGATIVE (Negative)
== END 2024-03-31 20:01 | disposition home or self-care (01) ==
LOC: HO.HMGCLNP 20:00
PROVIDERS: PCP Nurse Practitioner Family; Visit Provider Nurse Practitioner Family
DX: R19.7 Diarrhea, unspecified (principal)
CPT/HCPCS: 87493

== ENCOUNTER 2024-04-01 17:00 | Outpatient (REF) | payer OTHER, SELFPAY ==
[2024-04-02 14:54] LABS: Adenovirus F 40/41 Not Detected (Not Detect.); Astrovirus Not Detected (Not Detect.); Campylobacter Not Detected (Not Detect.); Cryptosporidium Not Detected (Not Detect.); Cyclospora cayetanensis Not Detected (Not Detect.); E. coli EAEC Not Detected (Not Detect.); E. coli EPEC Not Detected (Not Detect.); E. coli ETEC Not Detected (Not Detect.); E. coli STEC Not Detected (Not Detect.); Entamoeba histolytica Not Detected (Not Detect.); Giardia lamblia Not Detected (Not Detect.); Norovirus GI/GII Not Detected (Not Detect.); Plesiomonas shigelloides Not Detected (Not Detect.); Rotavirus A Not Detected (Not Detect.); Salmonella Not Detected (Not Detect.); Sapovirus Not Detected (Not Detect.); Shigella sp./EIEC Not Detected (Not Detect.); Vibrio Not Detected (Not Detect.); Vibrio Cholerae Not Detected (Not Detect.); Yersinia enterocolitica Not Detected (Not Detect.)
== END 2024-04-01 17:01 | disposition home or self-care (01) ==
LOC: HO.HMGCLNP 17:00
PROVIDERS: PCP Nurse Practitioner Family; Visit Provider Nurse Practitioner Family
DX: R19.7 Diarrhea, unspecified (principal)
CPT/HCPCS: 87507

== ENCOUNTER 2024-04-03 10:24 | Outpatient (REF) | payer OTHER, SELFPAY ==
[2024-04-03 14:22] LABS: Potassium 3.7 mmol/L (3.3-5.1)
== END 2024-04-03 10:25 | disposition home or self-care (01) ==
LOC: HO.HMGCLDS 10:24
PROVIDERS: PCP Nurse Practitioner Family; Visit Provider Nurse Practitioner Family
DX: E87.6 Hypokalemia (principal)
CPT/HCPCS: 36415; 84132

== ENCOUNTER 2024-04-20 10:38 | Outpatient (REF) | payer OTHER, SELFPAY ==
[2024-04-20 14:21] LABS: Blood Urea Nitrogen 14 mg/dL (9-16); Estimated Glomerular Filt Rate > 60
== END 2024-04-20 10:39 | disposition home or self-care (01) ==
LOC: HO.HMGCLDS 10:38
PROVIDERS: PCP Nurse Practitioner Family; Visit Provider Nurse Practitioner Family
DX: R55 Syncope and collapse (principal)
CPT/HCPCS: 36415; 82565; 84520

== ENCOUNTER 2024-04-22 09:04 | Outpatient (REF) | payer OTHER, SELFPAY ==
--- NOTE | ~2024-04-22 | CT_ITS ---
EXAMINATION: CT ABDOMEN AND PELVIS WITH CONTRAST CLINICAL INFORMATION: Abdominal pain. COMPARISON: 08/31/2019 TECHNIQUE: Multidetector volumetric images were obtained from the superior aspect of the liver through the pubic symphysis following administration 85 mL of Omnipaque 350 intravenous contrast. Sagittal and coronal reformatted images were obtained on the technologist's workstation. Oral contrast: Yes This CT examination was performed using dose optimization techniques as appropriate, variously including the following: *Automated exposure control *Adjustment of mA and/or kV according to patient size (this includes techniques or standardized protocols for targeted exams where dose is matched to indication/reason for exam; i.e. extremities or head) *Use of iterative reconstruction technique DLP: 479 mGy-cm FINDINGS: LUNG BASES: The visualized lung bases are unremarkable. LIVER, GALLBLADDER, AND BILIARY TREE: The liver is normal in size and contour. Few hypodensities too small to characterize. No biliary ductal dilatation is present. The gallbladder is unremarkable with no evidence of radiopaque gallstones, gallbladder wall thickening, or obvious pericholecystic inflammatory changes. PANCREAS: No ductal dilatation. More conspicuous 5 mm hypodensity in the head of the pancreas. SPLEEN: Not enlarged. ADRENAL GLANDS: Stable 2.7 x 2.1 cm left adrenal nodule. KIDNEYS AND URETERS: The kidneys are symmetric in size and enhancement. No hydronephrosis. No perinephric stranding. BLADDER: Unremarkable. GASTROINTESTINAL TRACT: Wall thickening, submucosal edema and mucosal hyperenhancement of the rectosigmoid colon with prominence of the vasa recta. No small bowel obstruction. ABDOMINAL WALL: No significant hernia is appreciated. LYMPH NODES: No bulky lymphadenopathy. VASCULAR: Normal caliber abdominal aorta. Aortobiiliac stent. PELVIC VISCERA: Unremarkable. OSSEOUS STRUCTURES: No destructive bone lesions. CT/CT abdomen pelvis w IV con IMPRESSION: Wall thickening, some mucosal edema and mucosal hyperenhancement of the rectosigmoid colon with prominence of the vasa recta. This most likely represents colitis. Infectious and inflammatory etiologies should be considered. Stable 2.7 x 2.1 cm left adrenal nodule. Recommend consideration of laboratory evaluation for possible pheochromocytoma and then subsequent evaluation with Adrenal Protocol CT. New or more conspicuous 5 mm hypodensity in the head of the pancreas. MRI/MRCP is recommended.
[2024-04-22] MEDS: iohexoL 350 MG/ML 75 ML INFUS..BTL 85 ML IV (11:51)
[2024-04-22] MEDS: Barium Sulfate Oral (Vanilla) 450 ML ORAL.SUSP 900 ML PO (11:52)
== END 2024-04-22 09:05 | disposition home or self-care (01) ==
LOC: HO.CT 09:04
PROVIDERS: PCP Nurse Practitioner Family; Visit Provider Nurse Practitioner Family
DX: R10.9 Unspecified abdominal pain (principal); R19.7 Diarrhea, unspecified; R50.9 Fever, unspecified; Z87.19 Personal history of other diseases of the digestive system
CPT/HCPCS: 74177; Q9967

== ENCOUNTER 2024-04-27 10:48 | Outpatient (REF) | payer OTHER, SELFPAY ==
[2024-04-27 15:06] LABS: C Reactive Protein 0.21 mg/dL (< or = 0.50)
== END 2024-04-27 10:49 | disposition home or self-care (01) ==
LOC: HO.HMGCLDS 10:48
PROVIDERS: PCP Nurse Practitioner Family; Visit Provider Nurse Practitioner Family
DX: K58.9 Irritable bowel syndrome, unspecified (principal)
CPT/HCPCS: 36415; 86140

== ENCOUNTER 2024-04-28 10:45 | Outpatient (REF) | payer OTHER, SELFPAY ==
[2024-05-05 23:34] LABS: Calprotectin, Fecal 49 mcg/g
== END 2024-04-28 10:46 | disposition home or self-care (01) ==
LOC: HO.HMGCLNP 10:45
PROVIDERS: PCP Nurse Practitioner Family; Visit Provider Nurse Practitioner Family
DX: R15.9 Full incontinence of feces (principal)
CPT/HCPCS: 83993

== ENCOUNTER 2024-04-29 08:52 | Outpatient (AMB) | payer OTHER, SELFPAY ==
--- NOTE | 2024-04-29 08:53 | A.OFFPC_ITS ---
Vital Signs 04/29/24 08:55 Height 5 ft 4 in Weight 146 lb BMI 25.1 BP 120/82 Blood Pressure Location Lt brachial Position Sitting Pulse 72 Pulse Source Pulse Oximeter Pulse Oximetry (%) 98 Oxygen Delivery Method Room Air Intake Visit Reasons: 3M F/U New Medication Intake Note: Patient here to follow up after rotator cuff procedure Allergies mirtazapine [From Remeron] Adverse Reaction (Intermediate, Verified 04/29/24 09:50) Agitated oxycodone Adverse Reaction (Intermediate, Verified 04/29/24 09:50) Rash oxycodone Allergy (Intermediate, Uncoded 04/29/24 09:50) Hives clora prep Allergy (Unknown, Uncoded 04/29/24 09:50) rash Medication List - Last Reconciled 04/29/24 by Jose Lim, DISASTER RECOVERY MANAGER- amoxicillin-pot clavulanate 875-125 mg 1 tab PO BID 4 days aspirin (Ecotrin Low Strength) 81 mg PO DAILY atorvastatin 40 mg PO BEDTIME 90 days bisacodyl (Dulcolax (bisacodyl)) 10 mg (2 x 5 mg) PO BEDTIME clonazepam 0.5 mg PO DAILY PRN 15 days escitalopram oxalate 20 mg PO DAILY hydroxyzine pamoate 25 mg PO TID methylcellulose (laxative) (Citrucel) 500 mg PO DAILY tramadol 200 mg PO BID PRN trazodone 150 mg PO BEDTIME Tobacco use date assessed: 12/26/23 Dental Screening Dental Screen Date: 12/26/23 HPI 3M F/U New Medication HPI Details Pt reports diarrhea. She reports passing blood, mucus, and pus in her stool. Pt is following up with GI. She had a recent CT which showed wall thickening, some mucosal edema and mucosal hyperenhancement of the rectosigmoid colon with prominence of the vasa recta. This most likely represents colitis. Infectious and inflammatory etiologies should be considered. Stable 2.7 x 2.1 cm left adrenal nodule. Recommend consideration of laboratory evaluation for possible pheochromocytoma and then subsequent evaluation with Adrenal Protocol CT. Will refer to endo. Abdominal CT also showed new or more conspicuous 5 mm hypodensity in the head of the pancreas. MRI/MRCP is recommended. Will reach out to GI regarding this. Pt is following up with GI. She was recently started on augmentin. Denies fever, chills, and N/V. SHe does not report much change in her symptoms with use of augmentin. [facility] Medical History (Updated 04/29/24 @ 09:50 by Jose Lim [facility]) Adhesive capsulitis Postmenopause Centrilobular emphysema Intraductal papilloma of left breast Primary insomnia Depression with anxiety Peripheral vascular disease Proctitis HLD (hyperlipidemia) Surgical History (Updated 03/31/24 @ 12:41 by FLORIDALMA Polk) Hx of rotator cuff surgery History of shoulder surgery Hx of colonoscopy History of esophagogastroduodenoscopy (EGD) History of intravascular stent placement Family History Father Cancer of prostate CAD (coronary artery disease) CHF (congestive heart failure) Diabetes mellitus Mother Brain cancer Myocardial infarction Sister Breast cancer Sister Crohn's disease Hepatitis B Brother No problems noted. Brother Cancer of prostate Son No problems noted. Son No problems noted. Daughter No problems noted. Family/Other Substance use disorder Social History Housing: House Alcohol intake: never Patient Tobacco Use Status: Former Tobacco user Tobacco use type: Cigarette Cigarettes Per Day: 2 e-Cigarette/Vaping Use: Currently Using Second Hand Smoke Exposure: No service: No Current occupational status: employed Current occupation: right hand dominant Current occupational exposures/hazards: No Cognitive needs: No Hearing needs: No Vision needs: No Questionnaire Thrive Questionnaire Date Thrive assessed: 11/21/21 MARILYNN-7 AMB Questionnaire MARILYNN-7 Date MARILYNN - 7 assessed: 12/26/23 Source: Developed by Drs. Jorge Gonzales, Juani Gerard, Anuel Charles and colleagues, with an educational jennie from [employer]. Review of Systems Const Reports as per HPI Physical exam (Primary Care) Vital Signs: Last Vital Signs Pulse 72 04/29/24 08:55 BP 120/82 04/29/24 08:55 Pulse Ox 98 04/29/24 08:55 Oxygen Delivery Method Room Air 04/29/24 08:55 BMI result Body Mass Index 25.1 Tobacco/Smoking Status: Tobacco use Status Tobacco use date assessed 12/26/23 04/29/24 08:54 Patient Tobacco Use Status Former Tobacco user 04/29/24 08:54 Tobacco use type Cigarette 04/29/24 08:54 e-Cigarette/Vaping Use Currently Using 04/29/24 08:54 Thrive Assessment: Date of Thrive Assessment Date Thrive assessed 11/21/21 04/29/24 08:54 Const General: cooperative Orientation/consciousness: patient oriented x3 Resp Effort & Inspection: normal respiratory effort Auscultation: clear to auscultation bilaterally Cardio Rate: regular rate Rhythm: regular rhythm Heart sounds: S1 normal heart sound present and S2 normal heart sound present GI Other: slight tenderness with palpation of LLQ Neuro General: patient oriented x3 Psych Appearance: grossly normal Mental Status: mental status grossly normal Speech and movement: Normal speech and movement present Affect: normal affect Attitude: cooperative Thought process: Normal thought process present Thought content: Normal thought content present Insight: Good insight present (Psych) Judgement: Good judgement present (Psych) Assessment and Plan Assessment & Plan (1) Pheochromocytoma: Code(s): D35.00 - Benign neoplasm of unspecified adrenal gland Plan: Referred to endo (2) Pancreatic abnormality: Code(s): 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 Scribed for MADISON Huang by Val Mcgee medical billing representative, on 04/29/2024 at 09:15 EST. Orders: Orders Complete Blood Count Auto Diff Today K92.2 - Gastrointestinal hemorrhage, unspecified, Q45.3 - Other congenital malformations of pancreas and pancreatic duct Comprehensive Met. Panel Today K92.2 - Gastrointestinal hemorrhage, unspecified, Q45.3 - Other congenital malformations of pancreas and pancreatic duct Carbohydrate Antigen 19-9 Today Q45.3 - Other congenital malformations of pancreas and pancreatic duct Referrals Endocrinology Referral D35.00 - Benign neoplasm of unspecified adrenal gland Coding Level of Care Code Est Pt Level 4 (73950) Complex EM visit Add On G2211 Diagnoses Pheochromocytoma D35.00 Pancreatic abnormality Q45.3 GI (gastrointestinal bleed) K92.2 Mucus in stool R19.5
[2024-04-29 08:55] VITALS: BP 120/82; PULSE 72; O2SAT 98; BMI 25.1
== END 2024-04-29 17:17 | disposition home or self-care (01) ==
PROVIDERS: PCP Nurse Practitioner Family; Visit Provider Nurse Practitioner Family
DX: D35.00 Benign neoplasm of unspecified adrenal gland (principal); Q45.3 Other congenital malformations of pancreas and pancreatic duct; K92.2 Gastrointestinal hemorrhage, unspecified; R19.5 Other fecal abnormalities
CPT/HCPCS: 99214; G2211

== ENCOUNTER 2024-04-30 10:07 | Day surgery (SDC) | payer OTHER, SELFPAY ==
[2024-04-30 11:45] VITALS: BMI 24.4
[2024-04-30 12:00] VITALS: BP 149/78; PULSE 69; RESP 15; TEMP 36.6; O2SAT 95
[2024-04-30] MEDS: Lactated Ringers 1,000 ML 50 ML IVCONT (12:04)
--- NOTE | 2024-04-30 13:46 | P.CONAN_ITS ---
[facility] Active Problems Active Problems: All Active Problems Mucus in stool (Acute) Pancreatic abnormality (Acute) GI (gastrointestinal bleed) (Acute) Pheochromocytoma (Acute) Right shoulder tendinitis (Acute) Stiffness of right shoulder joint (Acute) Injury of right rotator cuff (Acute) Right shoulder strain (Acute) At risk for side effect of medication (Acute) Syncope (Acute) Physical exam (Acute) COVID-19 virus infection (Acute ~09/2021) Depression with anxiety (Acute) Abnormal mammogram of right breast (Acute) Breast asymmetry (Acute) Anxiety and depression (Acute) IBS (irritable bowel syndrome) (Acute) Constipation (Acute) Peripheral vascular disease (Acute) Encounter to establish care (Acute) Physical exam (Acute) Dysuria (Acute) Conjunctivitis, left eye (Acute) Leg pain, right (Acute) SOB (shortness of breath) on exertion (Acute) Urinary frequency (Acute) Cold sore (Acute) History of shoulder surgery (Acute) Adhesive capsulitis (Acute) History of intravascular stent placement (Acute) Postmenopause (Acute) Peripheral vascular disease (Acute) HLD (hyperlipidemia) (Acute) Primary insomnia (Acute) Depression with anxiety (Acute) Proctitis (Acute) Past Medical History Medical History (Updated 04/30/24 @ 11:55 by Joy Barrientos RN) Hx of ulcerative colitis Adhesive capsulitis Postmenopause Centrilobular emphysema Intraductal papilloma of left breast Primary insomnia Depression with anxiety Peripheral vascular disease Proctitis HLD (hyperlipidemia) Family History Family History Father Cancer of prostate CAD (coronary artery disease) CHF (congestive heart failure) Diabetes mellitus Mother Brain cancer Myocardial infarction Sister Breast cancer Sister Crohn's disease Hepatitis B Brother No problems noted. Brother Cancer of prostate Son No problems noted. Son No problems noted. Daughter No problems noted. Family/Other Substance use disorder Family history of problems with anesthesia: No Surgical History Surgical History (Updated 04/30/24 @ 11:44 by Joy Barrientos RN) History of lumpectomy of left breast History of shoulder surgery Hx of colonoscopy History of esophagogastroduodenoscopy (EGD) History of intravascular stent placement History of Problems with Anesthesia: No Social History Social History Housing: House Alcohol intake: never Patient Tobacco Use Status: Former Tobacco user Tobacco use type: Cigarette Cigarettes Per Day: 2 e-Cigarette/Vaping Use: Currently Using Second Hand Smoke Exposure: No Use of substances other than those prescribed or required for medical reasons: No Are you DNR?: No Advance Directives: No Advance Directives Information Provided: Yes service: No Current occupational status: employed Current occupation: right hand dominant Current occupational exposures/hazards: No Cognitive needs: No Hearing needs: No Vision needs: No Meds Allergies Allergy/AdvReac Type Severity Reaction Status Date / Time mirtazapine [From Remeron] AdvReac Intermediate Agitated Verified 04/30/24 11:45 oxycodone AdvReac Intermediate Rash Verified 04/30/24 11:45 oxycodone Allergy Intermediate Hives Uncoded 04/29/24 09:50 clora prep Allergy Unknown rash Uncoded 04/29/24 09:50 Active Medications: Current Medications Lactated Ringer's (Lr) 1,000 mls @ 50 mls/hr IVCONT .Q20H VICENTE Last Admin: 04/30/24 12:04 Dose: 50 mls/hr Home Medications ?Medication ?Instructions ?Recorded ?Confirmed ?Last Taken ?Type aspirin 81 mg tablet,delayed 81 mg PO DAILY 08/30/20 04/30/24 04/27/24 History release (Ecotrin Low Strength) escitalopram oxalate 20 mg tablet 20 mg PO DAILY 12/26/23 04/30/24 Unknown History hydroxyzine pamoate 25 mg capsule 25 mg PO TID 03/31/24 04/30/24 Unknown History trazodone 150 mg tablet 150 mg PO BEDTIME 03/31/24 04/30/24 Unknown History tramadol 50 mg tablet 200 mg PO BID PRN pain 04/29/24 04/30/24 Unknown History Exam Height,Weight and Vital Signs: Height 5 ft 4 in Weight 64.41 kg Last Vital Signs Temp 97.9 F 04/30/24 12:00 Pulse 69 04/30/24 12:00 Resp 15 04/30/24 12:00 BP 149/78 H 04/30/24 12:00 Pulse Ox 95 04/30/24 12:00 O2 Del Method Room Air 04/30/24 12:00 Airway Mallampati Class: II TM Dist: >3cm Neck ROM: Full Denture: Upper and Lower Other: permanent bridge, upper Assessment and Plan Assessment Anesthesia Assessment: Anesthesia Plan Discussed and Chart Reviewed Final Anesthetic Review Family History of Problems with Anesthesia: No History of Problems with Anesthesia: No NPO: Yes ASA Class: II Final Preanesthetic Review: No Changes in Pt Med Stat, Meds/Allgs Chart Reviewed, Consent Obtained/Reviewed and Anes Risks/Benef Reviewed Patient Risk: Intermediate Procedure Risk: Low Anesthetic Plan Anesthetic Plan: TIVA Disposition: Standard PACU
--- NOTE | 2024-04-30 14:00 | MHC.SHP ---
Pre-Procedural Eval Section A - 24 Hr Update-Section A only Date of Service: 04/30/24 Section B - Complete if H&P > 30 days Chief Complaint: Hemorrhage of anus and rectum Relevant Family History (Specify if Yes): No Relevant Social History: None Present Medications: see Short Stay Collaborative assessment Medical History: Significant History (Hx of ulcerative colitis Adhesive capsulitis Postmenopause Centrilobular emphysema Intraductal papilloma of left breast Primary insomnia Depression with anxiety Peripheral vascular disease Proctitis HLD (hyperlipidemia)) History of Previous Operations: Relevant previous surgery/procedure and date(s) ( History of lumpectomy of left breast History of shoulder surgery Hx of colonoscopy History of esophagogastroduodenoscopy (EGD) History of intravascular stent placement) Allergies: Allergies Allergy/AdvReac Type Severity Reaction Status Date / Time mirtazapine [From Remeron] AdvReac Intermediate Agitated Verified 04/30/24 11:45 oxycodone AdvReac Intermediate Rash Verified 04/30/24 11:45 oxycodone Allergy Intermediate Hives Uncoded 04/29/24 09:50 clora prep Allergy Unknown rash Uncoded 04/29/24 09:50 Review of Systems Sugical H&P ROS: Negative: Constitution, Cardiovascular, Respiratory, Neurological, Psychiatric, Hem-Onc, Allergic/Immunologic, Gastrointestinal, Genitourinary, Musculoskeletal, Integumentary, Endocrine and Eyes/Ears/Nose/Throat Exam Surgical H&P Exam: Normal: HEENT, Normal: Heart, Normal: Lungs, Normal: Extremities, Normal: Abdomen, Normal: Skin and Normal: Neurological Plan Diagnosis/Plan: Unchanged I have reviewed the history and physical and performed a pertinent physical examination on my patient. No changes have occurred unless specified. Time Spent With Patient Time: Total time managing care of this patient today ____ minutes.
--- NOTE | 2024-04-30 14:44 | W.PM.OPN ---
Operative Note Operative Note Date of Service: 04/30/24 Narrative: Operative Information Procedure Description: Colonoscopy Indication: diarrhea Anesthesia: MAC COLONOSCOPY Instrument: Olympus variable stiffness pediatric scope 190L Colonoscopy Monitoring: Vital signs and clinical assessment, continuous EKG monitoring, Pulse oximetry, Carbon Dioxide monitoring and blood pressure monitoring were done throughout the procedure. Colon withdrawal time was 10 minutes. Procedure: The patient was placed in the left lateral decubitis position and pre-procedure medications were administered. After a digital rectal examination of the ano-rectum, the video colonoscope was inserted into the rectum and advanced through the colon to the cecum/TI. The colonoscope was slowly withdrawn in a retrograde panoramic fashion and the colon mucosa was carefully examined including a retroflexed view of the rectum. Findings and interventions are described below. Procedure Difficulty: easy Findings: Terminal Ileum-normal, bx taken Cecum: mild erythema and micro abscesses seen, bx taken Ascending Colon: bx taken, normal Transverse Colon -normal Descending Colon:normal Sigmoid Colon: moderate diverticulosis, distal area with erythema, edema and microabscesses, bx taken Rectum: Retroflexion not done, severe colitis Anorectum - normal Intervention: cold forceps Colon preparation: [place] Bowel Preparation Scale Right colon; 2 Transverse colon: 2 Left colon; 2 (0 = Unprepared colon segment with mucosa not seen due to solid stool that cannot be cleared. 1 = Portion of mucosa of the colon segment seen, but other areas of the colon segment not well seen due to staining, residual stool and/or opaque liquid. 2 = Minor amount of residual staining, small fragments of stool and/or opaque liquid, but mucosa of colon segment seen well. 3 = Entire mucosa of colon segment seen well with no residual staining, small fragments of stool or opaque liquid) Impression and Post Procedure Diagnosis: diverticulosis colitis Plan: Avoid straining at stool, epsom salts and sitz bath, anusol supps or cream Repeat Colonoscopy as clinically indicated, this is a diagnostic colonoscopy not screening avoid nsaid, can use mesalamine enema and PO tabs --will send apriso and rowasa -if not covered then steroids Above findings were reviewed with the patient and relevant handouts were provided if indicated.
[2024-04-30 14:50] VITALS: BP 109/62; PULSE 79; RESP 16; TEMP 36.1; O2SAT 98
[2024-04-30 15:05] VITALS: BP 120/58; PULSE 76; RESP 18; TEMP 36.8; O2SAT 96
[2024-04-30 16:19] LABS: CDiff Gene PCR NEGATIVE (Negative)
[2024-05-01 09:17] LABS: Adenovirus F 40/41 Not Detected (Not Detect.); Astrovirus Not Detected (Not Detect.); Campylobacter Not Detected (Not Detect.); Cryptosporidium Not Detected (Not Detect.); Cyclospora cayetanensis Not Detected (Not Detect.); E. coli EAEC Not Detected (Not Detect.); E. coli EPEC Not Detected (Not Detect.); E. coli ETEC Not Detected (Not Detect.); E. coli STEC Not Detected (Not Detect.); Entamoeba histolytica Not Detected (Not Detect.); Giardia lamblia Not Detected (Not Detect.); Norovirus GI/GII Not Detected (Not Detect.); Plesiomonas shigelloides Not Detected (Not Detect.); Rotavirus A Not Detected (Not Detect.); Salmonella Not Detected (Not Detect.); Sapovirus Not Detected (Not Detect.); Shigella sp./EIEC Not Detected (Not Detect.); Vibrio Not Detected (Not Detect.); Vibrio Cholerae Not Detected (Not Detect.); Yersinia enterocolitica Not Detected (Not Detect.)
[2024-05-09 16:58] LABS: Lactoferrin, Fecal, Quant. 25.77 mcg/mL (<7.25)
== END 2024-04-30 15:35 | disposition home or self-care (01) ==
PROVIDERS: PCP Nurse Practitioner Family; Visit Provider Internal Medicine Gastroenterology
PROC: 0DJD8ZZ Inspection of Lower Intestinal Tract, Via Natural or Artificial Opening Endoscopic (ICD-10-PCS; CPT 45378; principal; 2024-04-30 14:30)
DX: K52.89 Other specified noninfective gastroenteritis and colitis (principal); K57.30 Diverticulosis of large intestine without perforation or abscess without bleeding; K62.5 Hemorrhage of anus and rectum; K58.9 Irritable bowel syndrome, unspecified; K21.9 Gastro-esophageal reflux disease without esophagitis; Z87.891 Personal history of nicotine dependence; Z79.82 Long term (current) use of aspirin; Z79.899 Other long term (current) drug therapy
CPT/HCPCS: 45380; 83631; 87493; 87507; 88305; J2704

== ENCOUNTER → 2024-04-30 10:07 | Outpatient (BNV) | payer OTHER, SELFPAY | PROVIDERS: PCP Nurse Practitioner Family; Visit Provider Internal Medicine Gastroenterology | DX: K62.5 Hemorrhage of anus and rectum (principal); K52.9 Noninfective gastroenteritis and colitis, unspecified; K57.30 Diverticulosis of large intestine without perforation or abscess without bleeding | CPT/HCPCS: 45380 ==

== ENCOUNTER 2024-05-07 08:47 | Outpatient (AMB) | payer OTHER, SELFPAY ==
--- NOTE | 2024-05-07 08:49 | A.OFFVIS_ITS ---
Vital Signs 05/07/24 08:52 Height 5 ft 4 in Weight 147 lb 14.883 oz BMI 25.4 BP 130/64 Blood Pressure Location Lt brachial Position Sitting Pulse 82 Pulse Source Pulse Oximeter Intake Visit Reasons: Benign neoplasm of unspecified adrenal gland Intake Note: Patient present today for benign neoplasm of unspecified adrenal gland. 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: No Accompanied by: Self / Same As Patient Allergies mirtazapine [From Remeron] Adverse Reaction (Intermediate, Verified 05/07/24 08:54) Agitated oxycodone Adverse Reaction (Intermediate, Verified 05/07/24 08:54) Rash oxycodone Allergy (Intermediate, Uncoded 05/07/24 08:54) Hives clora prep Allergy (Unknown, Uncoded 05/07/24 08:54) rash Medication List - Last Reconciled 05/07/24 by Jorge Lea MD aspirin (Ecotrin Low Strength) 81 mg PO DAILY atorvastatin 40 mg PO BEDTIME 90 days clonazepam 0.5 mg PO DAILY PRN 15 days dexamethasone 1 mg PO ONCE escitalopram oxalate 20 mg PO DAILY hydroxyzine pamoate 25 mg PO TID mesalamine (Rowasa) 4 grams (60 mL) MD BEDTIME mesalamine ER (Apriso) 1.5 grams (4 x 0.375 gram) PO DAILY methylcellulose (laxative) (Citrucel) 500 mg PO DAILY tramadol 200 mg PO BID PRN trazodone 150 mg PO BEDTIME HPI Comments Details: 58 YO F with who is seen in consultation at the request of PCP for adrenal incidentaloma. Had CT abdomen/pelvis [date] for which revealed 2.7 cm X 2.1 cm left adrenal mass. Prior CT dated 2019 revealed mass was present at same size. Unclear if CT with adrenal protocol MRI was performed to better characterize mass or with a biochemical workup was performed Denies history of spells with headache, flushing, diaphoresis, abdominal pain or diarrhea. Has any weight gain but only 6 lbs , frequent infections, easy bruisability, development of violaceous striae. No History of HTN, No history of anticoagulant use. Denies any weight loss, orthostatic symptoms, hypoglycemia. No history of malignancy or TB. Imaging: As above Labs: [facility] Medical History (Updated 05/07/24 @ 08:59 by Jorge Lea MD) Adrenal mass Hx of ulcerative colitis Adhesive capsulitis Postmenopause Centrilobular emphysema Intraductal papilloma of left breast Primary insomnia Depression with anxiety Peripheral vascular disease Proctitis HLD (hyperlipidemia) Surgical History History of lumpectomy of left breast History of shoulder surgery Hx of colonoscopy History of esophagogastroduodenoscopy (EGD) History of intravascular stent placement Family History Father Cancer of prostate CAD (coronary artery disease) CHF (congestive heart failure) Diabetes mellitus Mother Brain cancer Myocardial infarction Sister Breast cancer Sister Crohn's disease Hepatitis B Brother No problems noted. Brother Cancer of prostate Son No problems noted. Son No problems noted. Daughter No problems noted. Family/Other Substance use disorder Social History Housing: House Alcohol intake: never Patient Tobacco Use Status: Former Tobacco user Tobacco use type: Cigarette Cigarettes Per Day: 2 e-Cigarette/Vaping Use: Currently Using Second Hand Smoke Exposure: No service: No Current occupational status: employed Current occupation: right hand dominant Current occupational exposures/hazards: No Cognitive needs: No Hearing needs: No Vision needs: No Physical Exam Vital Signs: Last Vital Signs Pulse 82 05/07/24 08:52 BP 130/64 05/07/24 08:52 BMI result Body Mass Index 25.4 Const Other: Absence of cushingoid features. Thyroid gland is normal size weighs by 15 g. Assessment & Plan Assessment & Plan (1) Adrenal mass: Code(s): E27.8 - Other specified disorders of adrenal gland Category: Medical Plan: This is a 58-year-old white female with a history of left adrenal mass present since 2019 stable in size. It is unclear whether a CT with adrenal protocol MRI was done to characterize the mass better but it is somewhat reassuring that the mass was present 2019 and unchanged in size. Rule out hypersecretion of adrenal hormones. Patient is normotensive Plan is to check plasma metanephrines and normetanephrines, 1 mg dexamethasone suppression test with cortisol level dexamethasone level, DHEA-S level. Orders: Orders DHEA Sulfate Today E27.8 - Other specified disorders of adrenal gland Metanephrines, Plasma Today E27.8 - Other specified disorders of adrenal gland Cortisol Random 1 Week E27.8 - Other specified disorders of adrenal gland CT abdomen wo/w IV con 2 Months E27.8 - Other specified disorders of adrenal gland Dexamethasone 1 Week E27.8 - Other specified disorders of adrenal gland Medications: New dexamethasone 1 mg PO ONCE 1 tab 0RF Coding Level of Care Code New Pt Level 4 (48074) Diagnoses Adrenal mass E27.8
[2024-05-07 08:52] VITALS: BP 130/64; PULSE 82; BMI 25.4
== END 2024-05-07 09:38 | disposition home or self-care (01) ==
PROVIDERS: PCP Nurse Practitioner Family; Visit Provider Internal Medicine Endocrinology, Diabetes & Metabolism
DX: E27.8 Other specified disorders of adrenal gland (principal)
CPT/HCPCS: 99204

== ENCOUNTER → 2024-05-07 08:47 | Outpatient (BNVA) | payer OTHER, SELFPAY | PROVIDERS: PCP Nurse Practitioner Family; Visit Provider Internal Medicine Endocrinology, Diabetes & Metabolism | DX: E27.8 Other specified disorders of adrenal gland (principal) | CPT/HCPCS: 99202 ==

== ENCOUNTER 2024-05-07 10:06 | Outpatient (REF) | payer OTHER, SELFPAY ==
[2024-05-07 11:36] LABS: MANUAL DIFF FLAG NO
[2024-05-07 11:53] LABS: Basophils Absolute Auto 0.1 X10*3/uL (0.0-0.2); Eosinophils Absolute Auto 0.1 X10*3/uL (0.0-0.4); Eosinophils Percent Auto 1.6 % (0-4); Hematocrit 42.3 % (37.0-47.0); Hemoglobin 13.9 g/dl (12.0-16.0); Imm Gran Abs Auto 0.03 X10*3/uL (0.00-0.03); Imm Gran Pct Auto 0.5 % (0.0-0.4); Lymphocytes Absolute Auto 1.5 X10*3/uL (1.2-4.9); Lymphocytes Percent Auto 23.9 % (20-40); Mean Corpuscular HGB Conc 32.9 g/dl (31.0-35.0); Mean Corpuscular Hemoglobin 29.4 pg (27.0-33.0); Mean Corpuscular Volume 89.4 fL (80.0-98.0); Mean Platelet Volume 9.8 fL (9.4-12.3); Monocytes Absolute Auto 0.3 X10*3/uL (0.1-1.2); Monocytes Percent Auto 5.5 % (2-11); Neutrophils Absolute Auto 4.2 x10*3/uL (2.0-8.3); Neutrophils Percent Auto 67.5 % (45-73); Platelet Count 210 X10*3/uL (160-400); Red Blood Count 4.73 X10*6/uL (4.20-5.50); Red Cell Distribution Width 12.6 % (11.0-16.0); White Blood Count 6.2 X10*3/uL (4.8-10.8)
[2024-05-07 13:31] LABS: Alanine Aminotransferase 17 U/L (0-31); Albumin Level 4.4 g/dL (3.5-5.0); Alkaline Phosphatase 118 U/L (39-117); Anion Gap 17 (12-20); Aspartate Amino Transferase 13 U/L (5-31); Bilirubin Total 0.5 mg/dL (0.0-1.0); Blood Urea Nitrogen 20 mg/dL (9-16); Carbon Dioxide 25 mmol/L (22-29); Chloride 107 mmol/L (96-108); Estimated Glomerular Filt Rate > 60; Glucose Random 116 mg/dL (60-115); Potassium 4.6 mmol/L (3.3-5.1); Sodium 144 mmol/L (135-145); Total Protein 6.8 g/dL (6.5-8.0)
[2024-05-08 20:13] LABS: DHEA Sulfate 13 mcg/dL (5-167)
[2024-05-09 09:58] LABS: Carbohydrate Antigen 19-9 3 U/mL (<34)
[2024-05-12 21:28] LABS: Metanephrine, Free <25 pg/mL (<=57); Normetanephrines, Free 114 pg/mL (<=148); Total Metanephrine, Free 114 pg/mL (<=205)
== END 2024-05-07 10:07 | disposition home or self-care (01) ==
LOC: HO.HMGCLDS 10:06
PROVIDERS: PCP Nurse Practitioner Family; Referring Provider Internal Medicine Endocrinology, Diabetes & Metabolism; Visit Provider Nurse Practitioner Family
DX: E27.8 Other specified disorders of adrenal gland (principal); K92.2 Gastrointestinal hemorrhage, unspecified; Q45.3 Other congenital malformations of pancreas and pancreatic duct
CPT/HCPCS: 36415; 80053; 82627; 83835; 85025; 86301

== ENCOUNTER 2024-05-11 07:03 | Outpatient (REF) | payer OTHER, SELFPAY ==
[2024-05-11 10:53] LABS: Cortisol Random 4.4 ug/dL
[2024-05-21 11:24] LABS: Dexamethasone 580 ng/dL
== END 2024-05-11 07:04 | disposition home or self-care (01) ==
LOC: HO.HMGCLDS 07:03
PROVIDERS: PCP Nurse Practitioner Family; Visit Provider Internal Medicine Endocrinology, Diabetes & Metabolism
DX: E27.8 Other specified disorders of adrenal gland (principal)
CPT/HCPCS: 36415; 80299; 82533

== ENCOUNTER 2024-05-12 08:46 | Outpatient (REF) | payer OTHER, SELFPAY ==
[2024-05-13 15:04] LABS: DHEA Sulfate 12 mcg/dL (5-167)
[2024-05-19 15:09] LABS: Adrenocorticotropic Hormone <5 pg/mL (6-50)
== END 2024-05-12 08:47 | disposition home or self-care (01) ==
LOC: HO.LAB 08:46
PROVIDERS: PCP Nurse Practitioner Family; Visit Provider Internal Medicine Endocrinology, Diabetes & Metabolism
DX: E27.8 Other specified disorders of adrenal gland (principal)
CPT/HCPCS: 36415; 82024; 82530; 82627

== ENCOUNTER 2024-05-25 09:16 | Outpatient (AMB) | payer OTHER, SELFPAY ==
--- NOTE | 2024-05-25 09:23 | A.OFFVIS_ITS ---
Vital Signs 05/25/24 09:25 Height 5 ft 4 in Weight 145 lb 8.081 oz BMI 25.0 BP 106/65 Blood Pressure Location Lt brachial Position Sitting Pulse 63 Intake Visit Reasons: 2 mos FUV. Intake Note: Ivy presents in the office as a 2 month follow up. CC: Still having some spot bleeding. Did not take citrucel for vacation and did not have a BM for 6 days - since being home she is okay. 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 Patient will start taking Citrucel to help her bulk her stool and Dulcolax to help her evacuate her bowels better. Will check for C diff, GI panel. CBC to rule out leukocytosis. Patient has a history of proctitis and colitis. Will send her for CT scan. Patient was encouraged to increase fluid intake and activity to promote better bowel motility. Patient will return after her CT scan to discuss results. Patient will be due to go for colonoscopy as well. She is agreeable to plan of care and verbalizes understanding of instructions. She was given the opportunity to ask questions and all questions answered. ? Thank you for allowing me to participate in her care Orders Orders C Reactive Protein Today K58.9 Complete Blood Count no Diff Today K21.9 Comprehensive Met. Panel Today K21.9 Lipase Today R10.9 CDiff Gene PCR Today R19.7 GI Panel Today R19.7 CT abdomen pelvis w IV con Today R10.9, R19.7, R50.9, Z87.19 Medications New methylcellulose (laxative) (Citrucel) take it with full glass of water 500 mg PO DAILY 30 tabs 2RF K59.00 bisacodyl (Dulcolax (bisacodyl)) 10 mg (2 x 5 mg) PO BEDTIME 180 tabs 4RF COLONOSCOPY Findings: Terminal Ileum-normal, bx taken Cecum: mild erythema and micro abscesses seen, bx taken Ascending Colon: bx taken, normal Transverse Colon -normal Descending Colon:normal Sigmoid Colon: moderate diverticulosis, distal area with erythema, edema and microabscesses, bx taken Rectum: Retroflexion not done, severe colitis Anorectum - normal Intervention: cold forceps Colon preparation: Roosevelt Bowel Preparation Scale Right colon; 2 Transverse colon: 2 Left colon; 2 (0 = Unprepared colon segment with mucosa not seen due to solid stool that cannot be cleared. 1 = Portion of mucosa of the colon segment seen, but other areas of the colon segment not well seen due to staining, residual stool and/or opaque liquid. 2 = Minor amount of residual staining, small fragments of stool and/or opaque liquid, but mucosa of colon segment seen well. 3 = Entire mucosa of colon segment seen well with no residual staining, small fragments of stool or opaque liquid) Impression and Post Procedure Diagnosis: diverticulosis colitis Plan: Avoid straining at stool, epsom salts and sitz bath, anusol supps or cream Repeat Colonoscopy as clinically indicated, this is a diagnostic colonoscopy not screening avoid nsaid, can use mesalamine enema and PO tabs --will send apriso and rowasa -if not covered then steroids TODAY'S VISIT Since last seen patient had colonoscopy done due to change in bowel pattern, bleeding and mucus from her rectum. CT scan showed proctitis, colitis. Diagnostic Colonoscopy showed colitis and patient was placed on mesalamine p.o. as well as doing enemas. Patient reports that she has been doing enema daily and has been feeling much better. Occasionally gets bloated and wants to go back to following her FODMAP diet as she did in the past. Patient states that she forgot to takes Citrucel when she was away in [place] and was unable to have a bowel movement. However now she is back home and she is able to move her bowels better. Patient denies any rectal bleed or melena. Denies any mucus in her stool. Incidental finding on CT scan that showed unchanged adrenal gland cyst. 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 Patient denies any nausea or vomiting. Patient denies any ill effects from the prep, anesthesia or procedure itself. [facility] Medical History Adrenal mass Hx of ulcerative colitis Adhesive capsulitis Postmenopause Centrilobular emphysema Intraductal papilloma of left breast Primary insomnia Depression with anxiety Peripheral vascular disease Proctitis HLD (hyperlipidemia) Surgical History History of lumpectomy of left breast History of shoulder surgery Hx of colonoscopy History of esophagogastroduodenoscopy (EGD) History of intravascular stent placement Family History Father Cancer of prostate CAD (coronary artery disease) CHF (congestive heart failure) Diabetes mellitus Mother Brain cancer Myocardial infarction Sister Breast cancer Sister Crohn's disease Hepatitis B Brother No problems noted. Brother Cancer of prostate Son No problems noted. Son No problems noted. Daughter No problems noted. Family/Other Substance use disorder Social History Housing: House Alcohol intake: never Patient Tobacco Use Status: Former Tobacco user Tobacco use type: Cigarette Cigarettes Per Day: 2 e-Cigarette/Vaping Use: Currently Using Second Hand Smoke Exposure: No service: No Current occupational status: employed Current occupation: right hand dominant Current occupational exposures/hazards: No Cognitive needs: No Hearing needs: No Vision needs: No Review of Systems Const Details: Reports fevers Denies weight gain and Denies weight loss ENT Reports no additional complaints, Denies dysphagia and Denies odynophagia Card Reports no additional complaints Resp Reports no additional complaints GI Reports abdominal pain, Denies belching, Denies melena, Reports bloating, Reports hematochezia, Denies change in bowel habits, Denies dysphagia, Denies excessive flatus, Denies dyspepsia, Denies heartburn, Denies diarrhea, Reports loose stools, Denies nausea, Denies odynophagia, Denies vomiting and Reports other (Mucus in the stool) Reports no additional complaints Musc Reports no additional complaints Neuro Reports no additional complaints Psych Reports no additional complaints Endo Reports no additional complaints Physical Exam Vital Signs: Last Vital Signs Pulse 63 05/25/24 09:25 BP 106/65 05/25/24 09:25 BMI result Body Mass Index 25.0 Const General: healthy appearing, no acute distress and well developed Nutritional Appearance: well nourished Orientation/consciousness: patient oriented x3 Resp Effort & Inspection: normal respiratory effort, able to speak in complete sentences, no tracheal deviation and symmetric chest movement Auscultation: clear to auscultation bilaterally Cardio Rate: regular rate GI Inspection: Yes normal to inspection and No distended Palpation (GI): Soft to palpation, not firm, nontender and No hepatosplenomegaly present Auscultation: normal bowel sounds General: Yes no CVA tenderness Back/Spine/Pelvis Back: no CVA tenderness Skin General skin exam: elasticity normal, turgor normal and dry skin Neuro General: patient oriented x3 Psych Appearance: grossly normal Mental Status: mental status grossly normal Results Reviewed Results Reviewed: Laboratory Tests 04/27/24 04/30/24 05/07/24 11:07 Unknown 10:49 WBC 6.2 RBC 4.73 Hgb 13.9 Hct 42.3 C-Reactive Protein 0.21 Stool Lactoferrin 25.77 H C. difficile Tox B Gene NEGATIVE ABDOMINAL CT SCAN FINDINGS: LUNG BASES: The visualized lung bases are unremarkable. LIVER, GALLBLADDER, AND BILIARY TREE: The liver is normal in size and contour. Few hypodensities too small to characterize. No biliary ductal dilatation is present. The gallbladder is unremarkable with no evidence of radiopaque gallstones, gallbladder wall thickening, or obvious pericholecystic inflammatory changes. PANCREAS: No ductal dilatation. More conspicuous 5 mm hypodensity in the head of the pancreas. SPLEEN: Not enlarged. ADRENAL GLANDS: Stable 2.7 x 2.1 cm left adrenal nodule. KIDNEYS AND URETERS: The kidneys are symmetric in size and enhancement. No hydronephrosis. No perinephric stranding. BLADDER: Unremarkable. GASTROINTESTINAL TRACT: Wall thickening, submucosal edema and mucosal hyperenhancement of the rectosigmoid colon with prominence of the vasa recta. No small bowel obstruction. ABDOMINAL WALL: No significant hernia is appreciated. LYMPH NODES: No bulky lymphadenopathy. VASCULAR: Normal caliber abdominal aorta. Aortobiiliac stent. PELVIC VISCERA: Unremarkable. OSSEOUS STRUCTURES: No destructive bone lesions. CT/CT abdomen pelvis w IV con IMPRESSION: Wall thickening, some mucosal edema and mucosal hyperenhancement of the rectosigmoid colon with prominence of the vasa recta. This most likely represents colitis. Infectious and inflammatory etiologies should be considered. Stable 2.7 x 2.1 cm left adrenal nodule. Recommend consideration of laboratory evaluation for possible pheochromocytoma and then subsequent evaluation with Adrenal Protocol CT. Assessment & Plan Assessment & Plan (1) Abdominal pain: Code(s): R10.9 - Unspecified abdominal pain Qualifiers: Abdominal location: left lower quadrant Qualified Code(s): R10.32 - Left lower quadrant pain (2) Diarrhea: Code(s): R19.7 - Diarrhea, unspecified Qualifiers: Diarrhea type: functional diarrhea Qualified Code(s): K59.1 - Functional diarrhea (3) Rectal bleed: Code(s): K62.5 - Hemorrhage of anus and rectum (4) Ulcerative colitis: Code(s): K51.90 - Ulcerative colitis, unspecified, without complications Qualifiers: Ulcerative colitis location: ulcerative pancolitis Digestive disease complication type: without complication Qualified Code(s): K51.00 - Ulcerative (chronic) pancolitis without complications (5) 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 Patient will MRI done within 8-12 months to re-evaluate. Continue mesalamine. Patient can take Colace. Discussed with her low FODMAP diet again. Follow-up in the office in 3 months, sooner on as needed basis. Patient is agreeable to this plan and verbalizes understanding of instructions. She was given the opportunity to ask questions and all questions answered. Thank you for allowing me to participate in her care Medications: New docusate sodium 100 mg PO BEDTIME 90 caps 3RF K59.00 - Constipation, unspecified Coding Level of Care Code Est Pt Level 4 (96787) Diagnoses Left lower quadrant abdominal pain R10.32 Abdominal location: left lower quadrant Functional diarrhea K59.1 Diarrhea type: functional diarrhea Rectal bleed K62.5 Ulcerative pancolitis without complication K51.00 Ulcerative colitis location: ulcerative pancolitis Digestive disease complication type: without complication Pancreatic abnormality Q45.3 Time Spent (min) 40 Comment 25 minutes spent with patient and additional 15 minutes spent reviewing her records
[2024-05-25 09:25] VITALS: BP 106/65; PULSE 63; BMI 25.0
== END 2024-05-25 09:49 | disposition home or self-care (01) ==
PROVIDERS: PCP Nurse Practitioner Family; Visit Provider Nurse Practitioner Family
DX: R10.32 Left lower quadrant pain (principal); K59.1 Functional diarrhea; K62.5 Hemorrhage of anus and rectum; K51.00 Ulcerative (chronic) pancolitis without complications; Q45.3 Other congenital malformations of pancreas and pancreatic duct
CPT/HCPCS: 99214

== ENCOUNTER → 2024-05-25 09:16 | Outpatient (BNVA) | payer OTHER, SELFPAY | PROVIDERS: PCP Nurse Practitioner Family; Visit Provider Nurse Practitioner Family | DX: R10.32 Left lower quadrant pain (principal); K59.1 Functional diarrhea; K62.5 Hemorrhage of anus and rectum; K51.00 Ulcerative (chronic) pancolitis without complications; Q45.3 Other congenital malformations of pancreas and pancreatic duct; K59.00 Constipation, unspecified | CPT/HCPCS: 99212 ==

== ENCOUNTER 2024-05-28 23:45 | Outpatient (REF) | payer OTHER, SELFPAY ==
[2024-06-07 21:48] LABS: Saliva Cortisol 0.11 mcg/dL
== END 2024-05-28 23:46 | disposition home or self-care (01) ==
LOC: HO.HMGCLNP 23:45
PROVIDERS: Nurse Practitioner Adult Health; PCP Nurse Practitioner Family; Visit Provider Internal Medicine Endocrinology, Diabetes & Metabolism
DX: E27.8 Other specified disorders of adrenal gland (principal)
CPT/HCPCS: 82530

== ENCOUNTER 2024-06-02 08:01 | Outpatient (REF) | payer OTHER, SELFPAY ==
[2024-06-02 10:50] LABS: Blood Urea Nitrogen 20 mg/dL (9-16); Estimated Glomerular Filt Rate > 60
[2024-06-02 12:44] LABS: Cortisol Random 3.9 ug/dL
[2024-06-13 23:28] LABS: Dexamethasone 622 ng/dL
== END 2024-06-02 08:02 | disposition home or self-care (01) ==
LOC: HO.HMGCLDS 08:01
PROVIDERS: PCP Nurse Practitioner Family; Visit Provider Internal Medicine Endocrinology, Diabetes & Metabolism
DX: E27.8 Other specified disorders of adrenal gland (principal)
CPT/HCPCS: 36415; 80299; 82533; 82565; 84520

== ENCOUNTER 2024-06-05 08:22 | Outpatient (REF) | payer OTHER, SELFPAY ==
[2024-06-05 11:08] LABS: Creatinine, mg/dL 45.36
[2024-06-05 13:42] LABS: Creatinine, 24Hr Urine 0.9 G/Day (1.0-2.0); Total Volume 24 Hour Urine 1875 mL
[2024-06-06 22:08] LABS: DHEA Sulfate 11 mcg/dL (9-118)
[2024-06-11 04:28] LABS: Adrenocorticotropic Hormone 6 pg/mL (6-50)
[2024-06-13 23:28] LABS: Cortisol Free, 24 Hr Urine 10.4 mcg/24 h (4.0-50.0); Creatinine, 24 Hr Urine 0.87 g/24 h (0.50-2.15); Total Volume, 24 Hr Urine 1875 mL
== END 2024-06-05 08:23 | disposition home or self-care (01) ==
LOC: HO.HMGCLDS 08:22
PROVIDERS: PCP Nurse Practitioner Family; Visit Provider Internal Medicine Endocrinology, Diabetes & Metabolism
DX: E27.8 Other specified disorders of adrenal gland (principal)
CPT/HCPCS: 36415; 82024; 82530; 82570; 82627

== ENCOUNTER 2024-06-17 11:51 | Outpatient (REF) | payer OTHER, SELFPAY ==
--- NOTE | ~2024-06-17 | MM_ITS ---
EXAMINATION: MM SCREENING DIGITAL BREAST TOMOSYNTHESIS, BILATERAL CLINICAL INFORMATION: Screening. Asymptomatic. COMPARISON: Mammography: Comparison is made with available priors TECHNIQUE: Digital breast tomosynthesis is performed in both the craniocaudal and mediolateral oblique views along with computer-aided detection (CAD). Synthesized 2D images are generated from the tomosynthesis. FINDINGS: There are scattered areas of fibroglandular density (ACR BI-RADS breast composition Category b). Marker clip in the left breast from previous needle core biopsy. There are no significant masses, abnormal calcifications, or other abnormalities. MM/MM tomosynthesis screening BI IMPRESSION: No mammographic evidence of malignancy. ASSESSMENT: BI-RADS BI-RADS 2 - Benign Findings RECOMMENDATION: Routine annual mammography screening. 1 year F/U This examination should not preclude the clinical evaluation of a suspicious palpable abnormality. This patient's information was entered into a reminder system with a target due date for their next mammogram. Electronically signed by: Chanelle Britt DO 07/10/2024 04:55 PM EDT
== END 2024-06-17 11:52 | disposition home or self-care (01) ==
LOC: HO.MAMMO 11:51
PROVIDERS: PCP Nurse Practitioner Family; Visit Provider Nurse Practitioner Family
DX: Z12.31 Encounter for screening mammogram for malignant neoplasm of breast (principal)
CPT/HCPCS: 77063; 77067

== ENCOUNTER → 2024-06-17 12:00 | Outpatient (BNV) | payer OTHER, SELFPAY | PROVIDERS: PCP Nurse Practitioner Family; Visit Provider Internal Medicine | DX: Z12.31 Encounter for screening mammogram for malignant neoplasm of breast (principal) | CPT/HCPCS: 77063; 77067 ==

== ENCOUNTER 2024-06-26 08:23 | Outpatient (AMB) | payer OTHER, SELFPAY ==
--- NOTE | 2024-06-26 08:39 | AM.OFFWIN_ITS ---
Intake Vital Signs 3 06/26/24 08:41 Height 5 ft 4 in Weight 143 lb BMI 24.5 BP 118/80 Blood Pressure Location Lt brachial Position Sitting Pulse 82 Pulse Source Pulse Oximeter Temp 98.0 F Temp Source Oral Pulse Oximetry (%) 98 Oxygen Delivery Method Room Air Intake Visit Reasons: EP swelling/tender under LT breast Intake Note: pt c/o swelling and tenderness under LT breast. Started last week Patient Tobacco Use Status: Former Tobacco user Allergies oxycodone Adverse Reaction (Intermediate, Verified 06/26/24 08:40) Rash oxycodone Allergy (Intermediate, Uncoded 06/26/24 08:40) Hives clora prep Allergy (Unknown, Uncoded 06/26/24 08:40) rash Medication List - Last Reconciled 06/26/24 by Ludivina Person MD aspirin (Ecotrin Low Strength) 81 mg PO DAILY atorvastatin 40 mg PO BEDTIME 90 days clonazepam 0.5 mg PO DAILY PRN 15 days docusate sodium 100 mg PO BEDTIME escitalopram oxalate 20 mg PO DAILY hydroxyzine HCl 25 mg PO TID PRN mesalamine ER (Apriso) 1.5 grams (4 x 0.375 gram) PO DAILY methylcellulose (laxative) (Citrucel) 500 mg PO DAILY PRN trazodone 200 mg PO BEDTIME Do you need a note to return to daycare/school/sports/work: No HPI EP swelling/tender under LT breast 2 HPI0 Details Patient is a 59 female who is 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, she has an appointment with surgeon resection Came in with a chief complaint pain left anterior lower ribs for the past 2 days Patient says that she had lot of sneezing before that I have ordered chest x-ray rib x-ray Once the report is available we will proceed with further management She is able to take deep breaths with some discomfort There is no fever no chills no cough no shortness a breath there is no chest congestion no nausea no vomiting no abdominal pain PFSH Medical History Adrenal mass Hx of ulcerative colitis Adhesive capsulitis Postmenopause Centrilobular emphysema Intraductal papilloma of left breast Primary insomnia Depression with anxiety Peripheral vascular disease Proctitis HLD (hyperlipidemia) Surgical History History of lumpectomy of left breast History of shoulder surgery Hx of colonoscopy History of esophagogastroduodenoscopy (EGD) History of intravascular stent placement Family History Father Cancer of prostate CAD (coronary artery disease) CHF (congestive heart failure) Diabetes mellitus Mother Brain cancer Myocardial infarction Sister Breast cancer Sister Crohn's disease Hepatitis B Brother No problems noted. Brother Cancer of prostate Son No problems noted. Son No problems noted. Daughter No problems noted. Family/Other Substance use disorder Social History Housing: House Alcohol intake: never Patient Tobacco Use Status: Former Tobacco user Tobacco use type: Cigarette Cigarettes Per Day: 2 e-Cigarette/Vaping Use: Currently Using Second Hand Smoke Exposure: No service: No Current occupational status: employed Current occupation: right hand dominant Current occupational exposures/hazards: No Cognitive needs: No Hearing needs: No Vision needs: No Review of Systems Const All systems reviewed & are unremarkable except as noted in HPI and below Physical Exam Vital Signs: Last Vital Signs Temp 98.0 F 06/26/24 08:41 Pulse 82 06/26/24 08:41 BP 118/80 06/26/24 08:41 Pulse Ox 98 06/26/24 08:41 Oxygen Delivery Method Room Air 06/26/24 08:41 BMI result Body Mass Index 24.5 Const General: no acute distress Orientation/consciousness: patient oriented x3 Eyes General: appearance normal, both eyes and all related structures Chest Chest/axillae images: 2 1. 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, she has an appointment with surgeon resection Came in with a chief complaint pain left anterior lower ribs for the past 2 days Patient says that she had lot of sneezing before that I have ordered chest x-ray rib x-ray Once the report is available we will proceed with further management She is able to take deep breaths with some discomfort There is no fever no chills no cough no shortness a breath there is no chest congestion no nausea no vomiting no abdominal pain Orders: Orders 2 XR chest 2V Today Ludivina Person MD R07.81 - Pleurodynia Medications: Changed 2 From methylcellulose (laxative) (Citrucel) take it with full glass of water 500 mg PO DAILY 30 tabs 2RF K59.00 - Constipation, unspecified To methylcellulose (laxative) (Citrucel) take it with full glass of water 500 mg PO DAILY PRN K59.00 - Constipation, unspecified GOVIND Subramanian- Coding Level of Care Code Est Pt Level 3 (96697) Diagnoses Pleuritic chest pain R07.81
[2024-06-26 08:41] VITALS: BP 118/80; PULSE 82; TEMP 36.7; O2SAT 98; BMI 24.5
== END 2024-06-26 11:42 | disposition home or self-care (01) ==
PROVIDERS: PCP Nurse Practitioner Family; Visit Provider Internal Medicine
DX: R07.81 Pleurodynia (principal)
CPT/HCPCS: 99213

== ENCOUNTER 2024-06-26 08:57 | Outpatient (REF) | payer OTHER, SELFPAY ==
--- NOTE | ~2024-06-26 | XR_ITS ---
EXAMINATION: XR CHEST CLINICAL INFORMATION: Pleurodynia COMPARISON: Chest radiograph 03/28/2022 TECHNIQUE: 2 views of the chest were obtained. FINDINGS: The lungs are adequately expanded. No focal consolidation. No pleural effusions, edema or pneumothorax. The cardiomediastinal silhouette is within normal limits. Aortic arch calcifications. No acute osseous abnormality. XR/XR chest 2V IMPRESSION: No acute pulmonary disease. Electronically signed by: Yoandy Gonsales MD 06/26/2024 12:13 PM EDT
--- NOTE | ~2024-06-26 | XR_ITS ---
EXAMINATION: XR RIBS, LEFT CLINICAL INFORMATION: Pleurodynia COMPARISON: None TECHNIQUE: 2 views of the left ribs were obtained. FINDINGS: Lungs are clear. No consolidation, pneumothorax, or pleural effusion. The cardiomediastinal silhouette and pulmonary vasculature are normal. Osseous structures are unremarkable. Ribs are intact. No fractures are identified. XR/XR ribs LT 2V IMPRESSION: Unremarkable examination. Electronically signed by: Greta Haddad MD 07/14/2024 04:27 PM EDT
== END 2024-06-26 08:58 | disposition home or self-care (01) ==
LOC: HO.HMGCX 08:57
PROVIDERS: PCP Nurse Practitioner Family; Visit Provider Internal Medicine
DX: R07.81 Pleurodynia (principal)
CPT/HCPCS: 71046; 71100

== ENCOUNTER 2024-06-30 14:55 | Outpatient (AMB) | payer OTHER, SELFPAY ==
--- NOTE | 2024-06-30 14:57 | A.OFFPC_ITS ---
Vital Signs 06/30/24 14:58 Height 5 ft 4 in Weight 146 lb BMI 25.1 BP 130/80 Blood Pressure Location Lt brachial Position Sitting Pulse 78 Pulse Source Pulse Oximeter Pulse Oximetry (%) 97 Oxygen Delivery Method Room Air Intake Visit Reasons: PE Intake Note: Patient here for physical exam. pt would like to talk about new Dx from Endo. Allergies oxycodone Adverse Reaction (Intermediate, Verified 06/30/24 16:41) Rash oxycodone Allergy (Intermediate, Uncoded 06/30/24 16:41) Hives clora prep Allergy (Unknown, Uncoded 06/30/24 16:41) rash Medication List - Last Reconciled 06/30/24 by INGE Villa aspirin (Ecotrin Low Strength) 81 mg PO DAILY atorvastatin 40 mg PO BEDTIME 90 days clonazepam 0.5 mg PO DAILY PRN 15 days docusate sodium 100 mg PO BEDTIME escitalopram oxalate 20 mg PO DAILY hydroxyzine HCl 25 mg PO TID PRN mesalamine ER (Apriso) 1.5 grams (4 x 0.375 gram) PO DAILY methylcellulose (laxative) (Citrucel) 500 mg PO DAILY PRN omeprazole 20 mg PO DAILY trazodone 200 mg PO BEDTIME Tobacco use date assessed: 12/26/23 Dental Screening Dental Screen Date: 12/26/23 HPI PE HPI Details Pt is here for a PE. Will order labs. 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 Mammo is up to date. Pt is following up with endo for cushings. Pt reported smoking up to a pack a day, quit 10 years ago, started smoking age 15. Will refer for low-dose CT. [facility] Medical History (Updated 06/30/24 @ 16:37 by INGE Villa) Physical exam Adrenal mass Hx of ulcerative colitis Adhesive capsulitis Postmenopause Centrilobular emphysema Intraductal papilloma of left breast Primary insomnia Depression with anxiety Peripheral vascular disease Proctitis HLD (hyperlipidemia) Surgical History History of lumpectomy of left breast History of shoulder surgery Hx of colonoscopy History of esophagogastroduodenoscopy (EGD) History of intravascular stent placement Family History Father Cancer of prostate CAD (coronary artery disease) CHF (congestive heart failure) Diabetes mellitus Mother Brain cancer Myocardial infarction Sister Breast cancer Sister Crohn's disease Hepatitis B Brother No problems noted. Brother Cancer of prostate Son No problems noted. Son No problems noted. Daughter No problems noted. Family/Other Substance use disorder Social History Housing: House Alcohol intake: never Patient Tobacco Use Status: Former Tobacco user Tobacco use type: Cigarette Cigarettes Per Day: 2 e-Cigarette/Vaping Use: Currently Using Second Hand Smoke Exposure: No service: No Current occupational status: employed Current occupation: right hand dominant Current occupational exposures/hazards: No Cognitive needs: No Hearing needs: No Vision needs: No Questionnaire Thrive Questionnaire Date Thrive assessed: 06/23/24 I am a: Patient What is your living situation today?: I have a steady place to live Within the past 12 months, did the food you bought not last and you didn't have the money to get more?: I choose not to answer this question Within the past 12 months, did you worry whether your food would run out before you got money to buy more?: I choose not to answer this question Do you have trouble paying for medicines?: No Do you have trouble getting transportation to medical appointments?: No Do you have trouble taking care of your child, family member or friend?: No Do you have trouble with day-to-day activities such as bathing, preparing meals, shopping, managing finances, etc.?: No Are you currently unemployed and looking for a job?: No Are you interested in more education?: No Please select the resources that you would like help with: None THRIVE Score: 0 AUDIT C Alcohol Use Questionnaire (AUDIT-C) 1. How often do you have a drink containing alcohol?: Never 2. How many drinks containing alcohol do you have on a typical day when you are drinking?: 1 or 2 3. How often do you have six or more drinks on one occasion?: Never Total Score: 0 MARILYNN-7 AMB Questionnaire MARILYNN-7 Date MARILYNN - 7 assessed: 12/26/23 Feeling nervous, anxious, or on edge: 3 = Nearly every day Not being able to stop or control worryin = Nearly every day Worrying too much about different things: 3 = Nearly every day Trouble relaxin = Nearly every day Being so restless that it is hard to sit still: 0 = Not at all Becoming easily annoyed or irritable: 0 = Not at all Feeling afraid as if something awful might happen: 1 = Several days Total MARILYNN-7 score (0-4 normal; 5-9 mild; 10-14 moderate; 15-21 severe): 13 Source: Developed by Drs. Jorge Gonzales, Juani Gerard, Anuel Charles and colleagues, with an educational jennie from [employer]. Review of Systems Const Denies chills and Denies fever(s) Eyes Denies blurry vision ENT Denies vertigo, Denies dizziness and Denies sore throat Card Denies chest pain at rest, Denies chest pain with activity, Denies diaphoresis, Denies dyspnea and Denies dyspnea on exertion Resp Denies cough, Denies dyspnea, Denies dyspnea on exertion and Denies wheezing GI Reports abdominal pain (sees gi), Denies melena, Reports hematochezia (intermittent, sees GI), Denies constipation, Reports diarrhea and Denies loose stools Denies hematuria Musc Denies numbness and Denies tingling Skin/Breast Denies lesions Neuro Denies vertigo, Denies dizziness, Denies numbness and Denies tingling Psych Denies anxiety, Denies depression, Denies homicidal ideation, Denies suicidal ideation and Denies other (substance abuse) Aller/Immun Denies wheezing Physical exam (Primary Care) Vital Signs: Last Vital Signs Pulse 78 06/30/24 14:58 BP 130/80 06/30/24 14:58 Pulse Ox 97 06/30/24 14:58 Oxygen Delivery Method Room Air 06/30/24 14:58 BMI result Body Mass Index 25.1 Tobacco/Smoking Status: Tobacco use Status Tobacco use date assessed 12/26/23 06/30/24 15:00 Patient Tobacco Use Status Former Tobacco user 06/30/24 15:00 Tobacco use type Cigarette 06/30/24 15:00 e-Cigarette/Vaping Use Currently Using 06/30/24 15:00 Thrive Assessment: Date of Thrive Assessment Date Thrive assessed 06/23/24 06/30/24 15:00 Const General: cooperative Nutritional Appearance: well nourished Orientation/consciousness: patient oriented x3 HENMT Head: Yes normal to inspection, Yes normocephalic and Yes atraumatic Ears: TM's normal bilaterally Eyes General: appearance normal, both eyes and all related structures Alignment and Position: alignment normal and position normal Neck Neck: Yes normal visual inspection, Yes no lymphadenopathy and Yes supple Resp Effort & Inspection: normal respiratory effort Auscultation: clear to auscultation bilaterally Cardio Rate: regular rate Rhythm: regular rhythm Heart sounds: S1 normal heart sound present, S2 normal heart sound present and no murmurs GI Palpation (GI): Soft to palpation and nontender Auscultation: normal bowel sounds Skin Rashes: no rashes Neuro General: patient oriented x3, moves all extremities, no focal motor deficits and deep tendon reflexes 2+ bilaterally Romberg Test: Negative Psych Appearance: grossly normal Mental Status: mental status grossly normal Speech and movement: Normal speech and movement present Affect: normal affect Attitude: cooperative Thought process: Normal thought process present Thought content: Normal thought content present Insight: Good insight present (Psych) Judgement: Good judgement present (Psych) Assessment and Plan Assessment & Plan (1) Smoker: Code(s): F17.200 - Nicotine dependence, unspecified, uncomplicated Plan: Referred for low-dose CT (2) Physical exam: Code(s): Z00.00 - Encounter for general adult medical examination without abnormal findings (3) Postmenopause: Code(s): Z78.0 - Asymptomatic menopausal state Plan The patient agreed to the use of a medical sales associate for this encounter. Scribed for INGE Huang by Val Mcgee medical sales associate, on 06/30/2024 at 15:15 EST. Orders: Orders Complete Blood Count Auto Diff Today Z00.00 - Encounter for general adult medical examination without abnormal findings UA CC w/rflx Micro + Cult Today Z00.00 - Encounter for general adult medical examination without abnormal findings Lipid Panel Today Z00.00 - Encounter for general adult medical examination without abnormal findings Vitamin D 25-OH Total Today Z78.0 - Asymptomatic menopausal state Comprehensive Orange. Panel Fast Today Z00.00 - Encounter for general adult medical examination without abnormal findings TSH reflex Free T4 Today Z00.00 - Encounter for general adult medical examination without abnormal findings XR DEXA axial skeleton Today F17.200 - Nicotine dependence, unspecified, uncomplicated, Z78.0 - Asymptomatic menopausal state Referrals Lung Cancer Screening Referral F17.200 - Nicotine dependence, unspecified, uncomplicated Coding Level of Care Code Est Pt Prev Care 40-64y(36049) Diagnoses Smoker F17.200 Physical exam Z00.00 Postmenopause Z78.0
[2024-06-30 14:58] VITALS: BP 130/80; PULSE 78; O2SAT 97; BMI 25.1
== END 2024-06-30 15:45 | disposition home or self-care (01) ==
PROVIDERS: PCP Nurse Practitioner Family; Visit Provider Nurse Practitioner Family
DX: Z00.00 Encounter for general adult medical examination without abnormal findings (principal); F17.210 Nicotine dependence, cigarettes, uncomplicated; Z78.0 Asymptomatic menopausal state
CPT/HCPCS: 99396

== ENCOUNTER 2024-07-28 09:45 | Outpatient (REF) | payer OTHER, SELFPAY ==
--- NOTE | ~2024-07-28 | MM_ITS ---
EXAMINATION: BONE DENSITOMETRY CLINICAL INDICATION: Menopause. COMPARISON: Baseline BD dated 05/14/2017. TECHNIQUE: Using a [employer] DXA System (software version: 13.1) manufactured by [employer], dual-energy x-ray absorptiometry was performed of the lumbar spine and left hip. The images are of good technical quality. Summary results are attached. FINDINGS: LEFT FEMUR, NECK: Current: BMD 0.811 g/cm2, Z-score -0.3, T-score -1.6, osteopenia. Baseline: BMD 0.869 g/cm2. LEFT FEMUR, TOTAL: Current: BMD 0.723 g/cm2, Z-score -1.3, T-score -2.3, osteopenia, 13.1% decrease from baseline (<5% change is not significant). Baseline: BMD 0.832 g/cm2. AP SPINE L1-L4: Current: BMD 0.982 g/cm2, Z-score -0.3, T-score -1.7, osteopenia, 4.0% decrease from baseline (<5% change is not significant). Baseline: BMD 1.023 g/cm2. IDENTIFIED RISK FACTORS: Early menopause, tobacco use (current smoker), secondary osteoporosis. HISTORY OF FRACTURE: None listed. MEDICATIONS: None listed. MM/XR DEXA axial skeleton IMPRESSION: 1. DIAGNOSIS: Osteopenia based on the lowest T-score value of -2.3 in the total femur applying World Health Organization criteria. 2. 10-YEAR FRACTURE RISK PREDICTION, FRAX: Major osteoporotic fracture (clinical spine, forearm, hip or shoulder) 8.8%. Hip fracture 1.5%. 3. Treatment Recommendations: NOF guidelines recommend consideration for treatment in postmenopausal women and men age 50 and older presenting with the following: -A hip or vertebral (clinical or morphometric) fracture. -T-score less than or equal to -2.5 at the femoral neck or spine after appropriate evaluation to exclude secondary causes. -Low bone mass at the hip or spine and a 10-year fracture probability by FRAX of greater than or equal to 3% for hip fracture or greater than or equal to 20% for major osteoporotic fracture based on the [place] adapted WHO algorithm. 4. Other Recommendations: All treatment decisions require clinical judgment and consideration of individual patient factors, including patient preferences, comorbidities, previous drug use, risk factors not captured in the FRAX model (e.g. frailty, falls, vitamin D deficiency, increased bone turnover, interval significant decline in bone density) and possible under or overestimation of fracture risk by FRAX. Additional medical evaluation for secondary cause of low bone mineral density may be appropriate. FUTURE SCAN RECOMMENDATION: People with diagnosed cases of osteoporosis or at high risk for fracture should have regular bone mineral density tests. For patients eligible for Medicare, routine testing is allowed once every 2 years. The testing frequency can be increased to one year for patients who have rapidly progressing disease, those who are receiving or discontinuing medical therapy to restore bone mass, or have additional risk factors. Electronically signed by: James Garcia MD 07/29/2024 04:07 PM EDT [place]
== END 2024-07-28 09:46 | disposition home or self-care (01) ==
LOC: HO.MAMMO 09:45
PROVIDERS: PCP Nurse Practitioner Family; Visit Provider Nurse Practitioner Family
DX: Z13.820 Encounter for screening for osteoporosis (principal); Z78.0 Asymptomatic menopausal state; F17.200 Nicotine dependence, unspecified, uncomplicated
CPT/HCPCS: 77080

== ENCOUNTER 2024-08-06 09:15 | Outpatient (AMB) | payer OTHER, SELFPAY ==
[2024-08-06 09:16] VITALS: BP 120/68; PULSE 60; BMI 25.4
--- NOTE | 2024-08-06 09:16 | A.OFFVIS_ITS ---
Vital Signs 08/06/24 09:16 Height 5 ft 4 in Weight 148 lb 2.41 oz BMI 25.4 BP 120/68 Blood Pressure Location Lt brachial Position Sitting Pulse 60 Pulse Source Pulse Oximeter Intake Visit Reasons: f/u adrenal mass/CONFIRMED Intake Note: Patient present today for adrenal mass follow up visit. Business Reporting Developer Required: No Accompanied by: Self / Same As Patient Allergies oxycodone Adverse Reaction (Intermediate, Verified 08/06/24 09:20) Rash oxycodone Allergy (Intermediate, Uncoded 08/06/24 09:20) Hives clora prep Allergy (Unknown, Uncoded 08/06/24 09:20) rash HPI Comments Details: 59 YO F with who is seen in consultation at the request of PCP for adrenal incidentaloma. Had CT abdomen/pelvis [date] for which revealed 2.7 cm X 2.1 cm left adrenal mass. Prior CT dated 2018 revealed mass was present at same size. Unclear if CT with adrenal protocol MRI was performed to better characterize mass or with a biochemical workup was performed Denies history of spells with headache, flushing, diaphoresis, abdominal pain or diarrhea. Has any weight gain but only 6 lbs , frequent infections, easy bruisability, development of violaceous striae. No History of HTN, No history of anticoagulant use. Denies any weight loss, orthostatic symptoms, hypoglycemia. No history of malignancy or TB. 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 Planning operation in 09/2024 [facility] Medical History (Updated 07/30/24 @ 09:05 by Suzanne Quinn PA-C) Osteopenia Personal history of nicotine dependence Adrenal mass Hx of ulcerative colitis Adhesive capsulitis Postmenopause Centrilobular emphysema Intraductal papilloma of left breast Primary insomnia Depression with anxiety Peripheral vascular disease Proctitis HLD (hyperlipidemia) Surgical History (Updated 07/30/24 @ 09:08 by Suzanne Quinn PA-C) History of colonoscopy History of lumpectomy of left breast History of shoulder surgery History of esophagogastroduodenoscopy (EGD) History of intravascular stent placement Family History Father Cancer of prostate CAD (coronary artery disease) CHF (congestive heart failure) Diabetes mellitus Mother Brain cancer Myocardial infarction Sister Breast cancer Sister Crohn's disease Hepatitis B Brother No problems noted. Brother Cancer of prostate Son No problems noted. Son No problems noted. Daughter No problems noted. Family/Other Substance use disorder Social History Housing: House Alcohol intake: never Patient Tobacco Use Status: Former Tobacco user Tobacco use type: Cigarette Cigarettes Per Day: 2 e-Cigarette/Vaping Use: Currently Using Second Hand Smoke Exposure: No service: No Current occupational status: employed Current occupation: right hand dominant Current occupational exposures/hazards: No Cognitive needs: No Hearing needs: No Vision needs: No Physical Exam Vital Signs: Last Vital Signs Pulse 60 08/06/24 09:16 BP 120/68 08/06/24 09:16 BMI result Body Mass Index 25.4 Assessment & Plan Assessment & Plan (1) Adrenal mass: Comment: (stable 2.7 x 2.1 cm left adrenal nodule - 04/22/[address]) Code(s): E27.8 - Other specified disorders of adrenal gland Category: Medical Plan: This is a 58-year-old white female with a history of left adrenal mass present since 2019 stable in size. 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 Patient saw Dr. Colbert for possible adrenalectomy Plan is to proceed with the adrenalectomy in 09/2024. Patient will follow-up with a couple of weeks after the operation. She may require postoperative steroid administration if the axis is suppressed Coding Level of Care Code Est Pt Level 3 (25296) Diagnoses Adrenal mass E27.8
== END 2024-08-06 09:51 | disposition home or self-care (01) ==
PROVIDERS: PCP Nurse Practitioner Family; Visit Provider Internal Medicine Endocrinology, Diabetes & Metabolism
DX: E27.8 Other specified disorders of adrenal gland (principal)
CPT/HCPCS: 99213

== ENCOUNTER → 2024-08-06 09:15 | Outpatient (BNVA) | payer OTHER, SELFPAY | PROVIDERS: PCP Nurse Practitioner Family; Visit Provider Internal Medicine Endocrinology, Diabetes & Metabolism | DX: E27.8 Other specified disorders of adrenal gland (principal) | CPT/HCPCS: 99212 ==

== ENCOUNTER 2024-08-24 11:37 | Outpatient (AMB) | payer OTHER, SELFPAY ==
[2024-08-24 11:39] VITALS: BP 134/70; PULSE 78; O2SAT 96; BMI 25.4
--- NOTE | 2024-08-24 11:39 | A.OFFVIS_ITS ---
Vital Signs 08/24/24 11:39 Height 5 ft 4 in Weight 147 lb 11.355 oz BMI 25.4 BP 134/70 Blood Pressure Location Rt brachial Position Sitting Pulse 78 Pulse Source Pulse Oximeter Pulse Oximetry (%) 96 Oxygen Delivery Method Room Air Intake Visit Reasons: 3 month follow up Intake Note: PRESCRIPTIONS LAST GENERATED docusate sodium 100 mg capsule?100 mg PO BEDTIME 90 caps 3RF Ciera Gonzales D 05/25/24 09:43 (Transmitted) Pt reports official diagnosis of [place]'s Syndrome as of the last few weeks. Pt would like to discuss this. Relevant Flags or Indicators ? Requires Data Acquisition Technician? Guerrero Haynes presents in office today for a scheduled 3 mos FUV. CC; No recent labs, pt had bone density scan which revealed osteopenia. Pt is due for lung screening this upcoming. ? Relevant GI Sx as reported per pt? Pt states that they have been doing much better since starting colace. ? Hx of any recent surgeries? Upcoming, nothing recent. Data Acquisition Technician Required: No Allergies acetaminophen [From Percocet] Allergy (Intermediate, Verified 08/24/24 11:41) Hives chlorhexidine Allergy (Mild, Verified 08/24/24 11:41) Rash oxycodone Adverse Reaction (Intermediate, Verified 08/06/24 09:20) Rash HPI HPI 3 month follow up: Details: LAST VISIT: Abdominal pain Diarrhea Rectal bleed Ulcerative colitis Pancreatic abnormality Plan 5 mm hypodensity found in pain previous on her CT scan. Patient will MRI done within 8-12 months to re-evaluate. Continue mesalamine. Patient can take Colace. Discussed with her low FODMAP diet again. Follow-up in the office in 3 months, sooner on as needed basis. Patient is agreeable to this plan and verbalizes understanding of instructions. She was given the opportunity to ask questions and all questions answered. ? Thank you for allowing me to participate in her care Medications New docusate sodium 100 mg PO BEDTIME 90 caps 3RF K59.00 TODAY'S VISIT Patient is here today for follow-up. Patient reports that she has not been feeling very well lately. She continues to have abdominal bloating postprandially. Patient was told that she most likely have [place] syndrome due to her symptoms. Patient's frozen pie maker is diagnosing her. Small nodule found on left adrenal and patient will go for surgery to [facility]. Patient has appointment for follow-up next month. Patient continues to take mesalamine with good effect. Patient denies any blood or mucus in the stool, however patient states that couple times she noticed mucus when she was pushing to have a bowel movement. She is taking Colace does not feel like she empties completely. Abdominal bloating almost all the time, however she does notice that depending on what she eats her bloating gets worse. Patient admits to feeling very gassy. Patient reports that she is discouraged as she is finding new things that are happening. Patient also found out that she has osteopenia. She increase calcium in her diet and is taking vitamin-D supplements. Patient denies any nausea or vomiting. Denies any melena, hematochezia, unintentional weight loss or ribbon like stools. Patient denies dyspepsia, dysphagia or odynophagia. [facility] Medical History (Updated 08/24/24 @ 18:29 by Ciera Gonzales, [facility]) GI (gastrointestinal bleed) Osteopenia Personal history of nicotine dependence Adrenal mass Hx of ulcerative colitis Adhesive capsulitis Postmenopause Centrilobular emphysema Intraductal papilloma of left breast Primary insomnia Depression with anxiety Peripheral vascular disease Proctitis HLD (hyperlipidemia) Surgical History History of colonoscopy History of lumpectomy of left breast History of shoulder surgery History of esophagogastroduodenoscopy (EGD) History of intravascular stent placement Family History Father Cancer of prostate CAD (coronary artery disease) CHF (congestive heart failure) Diabetes mellitus Mother Brain cancer Myocardial infarction Sister Breast cancer Sister Crohn's disease Hepatitis B Brother No problems noted. Brother Cancer of prostate Son No problems noted. Son No problems noted. Daughter No problems noted. Family/Other Substance use disorder Social History Housing: House Alcohol intake: never Patient Tobacco Use Status: Former Tobacco user Tobacco use type: Cigarette Cigarettes Per Day: 2 e-Cigarette/Vaping Use: Currently Using Second Hand Smoke Exposure: No service: No Current occupational status: employed Current occupation: right hand dominant Current occupational exposures/hazards: No Cognitive needs: No Hearing needs: No Vision needs: No Review of Systems Const Denies weight gain and Denies weight loss ENT Reports no additional complaints, Denies dysphagia and Denies odynophagia Card Reports no additional complaints Resp Reports no additional complaints GI Denies abdominal pain, Denies belching, Denies melena, Reports bloating, Denies change in bowel habits, Reports constipation, Denies dysphagia, Denies excessive flatus, Denies dyspepsia, Denies heartburn, Denies diarrhea, Reports loose stools, Denies nausea, Denies odynophagia and Denies vomiting Reports no additional complaints Musc Reports no additional complaints Neuro Reports no additional complaints Psych Reports no additional complaints Endo Reports no additional complaints Physical Exam Vital Signs: Last Vital Signs Pulse 78 08/24/24 11:39 BP 134/70 08/24/24 11:39 Pulse Ox 96 08/24/24 11:39 Oxygen Delivery Method Room Air 08/24/24 11:39 BMI result Body Mass Index 25.4 Const General: healthy appearing, no acute distress and well developed Nutritional Appearance: well nourished Orientation/consciousness: patient oriented x3 Resp Effort & Inspection: normal respiratory effort, able to speak in complete sentences, no tracheal deviation and symmetric chest movement Auscultation: clear to auscultation bilaterally Cardio Rate: regular rate GI Inspection: Yes normal to inspection and No distended Palpation (GI): Soft to palpation, not firm, nontender and No hepatosplenomegaly present Auscultation: normal bowel sounds General: Yes no CVA tenderness Back/Spine/Pelvis Back: no CVA tenderness Skin General skin exam: elasticity normal, turgor normal and dry skin Neuro General: patient oriented x3 Psych Appearance: grossly normal Mental Status: mental status grossly normal Assessment & Plan Assessment & Plan (1) Pancreatic abnormality: Code(s): Q45.3 - Other congenital malformations of pancreas and pancreatic duct Category: Medical (2) Abdominal pain: Code(s): R10.9 - Unspecified abdominal pain (3) Diarrhea: Code(s): R19.7 - Diarrhea, unspecified Qualifiers: Diarrhea type: functional diarrhea Qualified Code(s): K59.1 - Functional diarrhea (4) Rectal bleed: Code(s): K62.5 - Hemorrhage of anus and rectum (5) Ulcerative colitis: Code(s): K51.90 - Ulcerative colitis, unspecified, without complications Qualifiers: Ulcerative colitis location: ulcerative proctitis Digestive disease complication type: without complication Qualified Code(s): K51.20 - Ulcerative (chronic) proctitis without complications Plan Patient reports that her abdominal pain went away, currently taking mesalamine. Patient will continue taking mesalamine daily. 5 mm nodule of the pancreas seen on CT scan, will send her for MRI. Long discussion with patient about moving her bowels better. She continues to have abdominal bloating. We did discuss diet and being strict about it. Patient should avoid lactose. Patient was told that she should drink milk and eat ice cream due to osteopenia, however patient was encouraged to try lactose free ice cream and dairy. Patient will take Dulcolax daily. Increase fluid intake and activity to promote better bowel motility follow-up in the office in 3-4 months, sooner on as needed basis. She is agreeable to this plan and verbalizes understanding of instructions. She was given the opportunity to ask questions and all questions answered. Thank you for allowing me to participate in her care Orders: Orders MR abdomen wo/w con Today K86.9 - Disease of pancreas, unspecified Medications: Discontinued omeprazole Discontinued Reason: Doctor's Order 20 mg PO DAILY 30 caps 0RF Coding Level of Care Code Est Pt Level 4 (44573) Complex EM visit Add On G2211 Diagnoses Pancreatic abnormality Q45.3 Abdominal pain R10.9 Functional diarrhea K59.1 Diarrhea type: functional diarrhea Rectal bleed K62.5 Ulcerative proctitis without complication K51.20 Ulcerative colitis location: ulcerative proctitis Digestive disease complication type: without complication Time Spent (min) 35 Comment 25 minutes spent with patient and additional 10 minutes spent reviewing her records
== END 2024-08-24 12:36 | disposition home or self-care (01) ==
LOC: HO.HGI 11:38
PROVIDERS: PCP Nurse Practitioner Family; Visit Provider Nurse Practitioner Family
DX: Q45.3 Other congenital malformations of pancreas and pancreatic duct (principal); R10.9 Unspecified abdominal pain; K59.1 Functional diarrhea; K62.5 Hemorrhage of anus and rectum; K51.20 Ulcerative (chronic) proctitis without complications
CPT/HCPCS: 99214; G2211

== ENCOUNTER → 2024-08-24 11:37 | Outpatient (BNVA) | payer OTHER, SELFPAY | PROVIDERS: PCP Nurse Practitioner Family; Visit Provider Nurse Practitioner Family | DX: K51.20 Ulcerative (chronic) proctitis without complications (principal); K62.5 Hemorrhage of anus and rectum; K59.1 Functional diarrhea; K86.9 Disease of pancreas, unspecified; R10.9 Unspecified abdominal pain; Q45.3 Other congenital malformations of pancreas and pancreatic duct; R14.0 Abdominal distension (gaseous) | CPT/HCPCS: 99212 ==

== ENCOUNTER 2024-08-28 09:59 | Outpatient (AMB) | payer OTHER, SELFPAY ==
--- NOTE | 2024-08-28 08:01 | A.OFFVIS_ITS ---
Intake Visit Reasons: Former Smoker Allergies acetaminophen [From Percocet] Allergy (Intermediate, Verified 08/24/24 11:41) Hives chlorhexidine Allergy (Mild, Verified 08/24/24 11:41) Rash oxycodone Adverse Reaction (Intermediate, Verified 08/06/24 09:20) Rash HPI HPI Former Smoker: Details: Initial visit for this 59yo smoker with a 40+PYH. Patient started smoking at age 15 for 34 years at 1-1.5ppd. 10 years ago switched to vape pen. . Denies marijuana use. Denies second hand smoke exposure. Denies exposure to chemicals or substances like asbestos. . Denies known family history of lung cancer. Denies personal history of cancers. Denies chest CT in last year. . Reports heightened anxiety - Diagnosed with [place]. Pending surgery for left adrenal mass. Will be getting MRI of abdomen as well. Denies recent travel outside the [place]. Denies recent respiratory illness or recent hospitalization for respiratory issues. Denies testing positive for COVID. Admits receiving COVID Vaccine. . Denies fever, chills, new/worsening cough, hemoptysis, hoarseness or dysphagia. Denies significant chest pain, significant dyspnea or unintentional weight loss. Patient Lung Cancer Screening Questionnaire reviewed with patient by provider. . Shared Decision Making Completed. Patient meets criteria. Discussed in detail with patient, the risk vs benefit of LDCT screening. Patient consents to proceed with scan. Discussed smoking cessation. [facility], [facility] Medical History (Updated 08/28/24 @ 10:26 by Suzanne Quinn PA-C) History of GI bleed Osteopenia Personal history of nicotine dependence Adrenal mass Hx of ulcerative colitis Adhesive capsulitis Postmenopause Centrilobular emphysema Intraductal papilloma of left breast Primary insomnia Depression with anxiety Peripheral vascular disease Proctitis HLD (hyperlipidemia) Surgical History (Updated 08/28/24 @ 10:12 by Suzanne Quinn PA-C) History of colonoscopy History of lumpectomy of left breast History of shoulder surgery History of esophagogastroduodenoscopy (EGD) History of intravascular stent placement Family History Father Cancer of prostate CAD (coronary artery disease) CHF (congestive heart failure) Diabetes mellitus Mother Brain cancer Myocardial infarction Sister Breast cancer Sister Crohn's disease Hepatitis B Brother No problems noted. Brother Cancer of prostate Son No problems noted. Son No problems noted. Daughter No problems noted. Family/Other Substance use disorder Social History (Updated 08/28/24 @ 10:24 by Suzanne Quinn PA-C) Housing: House Alcohol intake: never Patient Tobacco Use Status: Former Tobacco user Tobacco use type: Cigarette Cigarettes Per Day: 2 Years Smoked: (onset 15yo, 1-1.5ppd x 34yrs, 40PYH, using vape for past 10yrs) e-Cigarette/Vaping Use: Currently Using Second Hand Smoke Exposure: No service: No Current occupational status: employed Current occupation: right hand dominant Current occupational exposures/hazards: No Cognitive needs: No Hearing needs: No Vision needs: No Assessment & Plan Assessment & Plan (1) Personal history of nicotine dependence: Comment: (onset 15yo, 1-1.5ppd x 34yrs, 40PYH, using vape for past 10yrs) Code(s): Z87.891 - Personal history of nicotine dependence Category: Medical Plan: - SDM visit completed today in office. - Patient meets criteria for LDCT for lung cancer screening purposes and is asymptomatic. - Smoking cessation counseling offered. Patients can always call [phone]. - Will arrange for a LDCT scan of the chest for screening purposes at [facility]. - Risks, benefits, and alternatives were discussed in detail and the patient agrees to proceed. - Risks discussed include but are not limited to: radiation exposure, anxiety during testing and while awaiting results, false negatives, false positives and possibility of additional intervention such as further imaging or surgical procedures for benign disease. - Benefits are obviously detection of lung cancer at an early stage which can lead to improved outcomes. - Discussed the importance of screening program compliance with adherence to yearly LDCT scan as scheduled - or sooner interval scans for personalized screening regimen. - Discussed follow up plan. Our office will send a letter discussing results and if needed set up phone call and office visit based on CT findings. - Patient educated on results categorization and the management decisions for suspicious findings potentially found on the screening LDCT scan. Any patient with a Lung RADS score of 3 or 4 will be reviewed by a multidisciplinary team at [facility] to form a plan of action in regards to scan findings. - If further work up is warranted for a suspicious lung finding this will be followed by the Lung Cancer Screening program in conjunction with the Thoracic Surgery Department at [facility]. - A copy of the office note and LDCT will be sent to the patient's PCP - as well as documentation on any associated further plans of care. - Incidental findings on LDCT are the PCP's responsibility. These findings are indicated with an S finding on the LDCT Assessment. A note discussing the findings will be sent to the PCP who is then responsible for further management. - All questions answered.? Coding Level of Care Code Lung Cancer Screening G0296 Diagnoses Personal history of nicotine dependence Z87.891
== END 2024-08-28 14:32 | disposition home or self-care (01) ==
PROVIDERS: PCP Nurse Practitioner Family; Visit Provider Physician Assistant Medical
DX: Z87.891 Personal history of nicotine dependence (principal)
CPT/HCPCS: G0296

== ENCOUNTER 2024-08-28 10:19 | Outpatient (REF) | payer OTHER, SELFPAY | END 2024-08-28 10:20 | disposition home or self-care (01) | LOC: HO.CT 10:19 | PROVIDERS: PCP Nurse Practitioner Family; Visit Provider Physician Assistant Medical | DX: Z12.2 Encounter for screening for malignant neoplasm of respiratory organs (principal); Z87.891 Personal history of nicotine dependence | CPT/HCPCS: 71271; G0296 ==

== ENCOUNTER 2024-10-08 09:10 | Outpatient (REF) | payer OTHER, SELFPAY ==
[2024-10-08] MEDS: gadobutroL 7.5 ML VIAL IVPUSH (10:03)
== END 2024-10-08 09:11 | disposition home or self-care (01) ==
LOC: HO.MRI 09:10
PROVIDERS: PCP Nurse Practitioner Family; Visit Provider Nurse Practitioner Family
DX: K86.9 Disease of pancreas, unspecified (principal)
CPT/HCPCS: 74183; A9585

== ENCOUNTER 2024-11-18 10:47 | Outpatient (AMB) | payer OTHER, SELFPAY ==
--- NOTE | 2024-11-18 10:55 | A.OFFVIS_ITS ---
Vital Signs 11/18/24 11:03 Height 5 ft 4 in Weight 147 lb 0.773 oz BMI 25.2 BP 108/64 Blood Pressure Location Rt brachial Position Sitting Pulse 82 Pulse Source Pulse Oximeter Intake Visit Reasons: f/u adrenal mass Intake Note: Patient present today for Adrenal Mass follow up. 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 Required: No Accompanied by: Self / Same As Patient Allergies acetaminophen [From Percocet] Allergy (Intermediate, Verified 11/18/24 11:04) Hives chlorhexidine Allergy (Mild, Verified 11/18/24 11:04) Rash oxycodone Adverse Reaction (Intermediate, Verified 11/18/24 11:04) Rash Medication List - Last Reconciled 11/18/24 by Jorge Lea MD aspirin (Ecotrin Low Strength) 81 mg PO DAILY atorvastatin 40 mg PO BEDTIME 90 days clonazepam 0.5 mg PO DAILY PRN 15 days docusate sodium 100 mg PO BEDTIME escitalopram oxalate 20 mg PO DAILY hydrocortisone 10 mg PO TID hydroxyzine HCl 25 mg PO TID PRN mesalamine ER (Apriso) 1.5 grams (4 x 0.375 gram) PO DAILY methylcellulose (laxative) (Citrucel) 500 mg PO DAILY PRN trazodone 200 mg PO BEDTIME HPI Comments Details: 59 YO F with who is seen in consultation at the request of PCP for adrenal incidentaloma. Had CT abdomen/pelvis [date] for which revealed 2.7 cm X 2.1 cm left adrenal mass. Prior CT dated 2018 revealed mass was present at same size. Unclear if CT with adrenal protocol MRI was performed to better characterize mass or with a biochemical workup was performed Denies history of spells with headache, flushing, diaphoresis, abdominal pain or diarrhea. Has any weight gain but only 6 lbs , frequent infections, easy bruisability, development of violaceous striae. No History of HTN, No history of anticoagulant use. Denies any weight loss, orthostatic symptoms, hypoglycemia. No history of malignancy or TB. 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 Status post left adrenalectomy by Dr. Colbert in 09/2024. Currently on hydrocortisone 20 mg in AM and 10 mg in PM after surgery. Has occasional episodes of dizziness and decreased appetite but this has been chronic due to ulcerative colitis [facility] History (Updated 11/09/24 @ 09:20 by Jose Lim, [facility]) Adrenal adenoma History of GI bleed Osteopenia Personal history of nicotine dependence Adrenal mass Hx of ulcerative colitis Adhesive capsulitis Postmenopause Centrilobular emphysema Intraductal papilloma of left breast Primary insomnia Depression with anxiety Peripheral vascular disease Proctitis HLD (hyperlipidemia) Surgical History History of partial adrenalectomy History of colonoscopy History of lumpectomy of left breast History of shoulder surgery History of esophagogastroduodenoscopy (EGD) History of intravascular stent placement Family History Father Cancer of prostate CAD (coronary artery disease) CHF (congestive heart failure) Diabetes mellitus Mother Brain cancer Myocardial infarction Sister Breast cancer Sister Crohn's disease Hepatitis B Brother No problems noted. Brother Cancer of prostate Son No problems noted. Son No problems noted. Daughter No problems noted. Family/Other Substance use disorder Social History Housing: House Alcohol intake: never Patient Tobacco Use Status: Former Tobacco user Tobacco use type: Cigarette Cigarettes Per Day: 2 Years Smoked: (onset 15yo, 1-1.5ppd x 34yrs, 40PYH, using vape for past 10yrs) e-Cigarette/Vaping Use: Currently Using Second Hand Smoke Exposure: No service: No Current occupational status: employed Current occupation: right hand dominant Current occupational exposures/hazards: No Cognitive needs: No Hearing needs: No Vision needs: No Physical Exam Vital Signs: Last Vital Signs Pulse 82 11/18/24 11:03 BP 108/64 11/18/24 11:03 BMI result Body Mass Index 25.2 Assessment & Plan Assessment & Plan (1) Adrenal mass: Comment: (stable 2.7 x 2.1 cm left adrenal nodule - 04/22/[address]) Code(s): E27.8 - Other specified disorders of adrenal gland Category: Medical Plan: This is a 59-year-old white female with a history of left adrenal mass present since 2019 stable in size. 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 Status post left adrenalectomy in 09/2024 Plan is to decrease the hydrocortisone to 20 mg q.d. in 2 weeks' time. If patient is able to tolerate physiologic replacement of 20 mg in the a.m., will consider testing the adrenal axis by holding hydrocortisone after she returns for follow-up visit in 3 months. I also gave her information on medic Alert bracelet for adrenal insufficiency. I also prescribed a Solu-Cortef rescue vial 100 mg and went over sick day rules with patient. I told her to call me if there is any issues when tapering the hydrocortisone to 20 mg Medications: New hydrocortisone sod succ (PF) (Solu-Cortef Act-O-Vial (PF)) 100 mg (2 mL) IM DAILY 1 ea 4RF Coding Level of Care Code Est Pt Level 3 (47970) Diagnoses Adrenal mass E27.8
[2024-11-18 11:03] VITALS: BP 108/64; PULSE 82; BMI 25.2
--- OUTSIDE RECORDS SUMMARY | 2024-11-18 12:53 | XMS_ITS | Continuity of Care Document ---
Author Organization [facility] ter Address [address] [place] [id number]- Care Team Providers Care Supervisor Elementary Education Name Role Phone Raphael GALLARDO, Jose Suárez Primary Care Physician [phone] Encounter [facility] Date(s): 11/02/24 - 11/03/[address] [address]- Discharge Disposition: A-D/C Home Attending Physician: Vinh Colbert MD Admitting Physician: Vinh Colbert MD Referring Physician: Vinh Colbert MD Encounter Type: Disch IP Allergies, Adverse Reactions, Alerts Substance Criticality Severity Reaction Reaction Severity Status oxyCODONE Hives Active ChloraPrep One-Step rash Active Medications acetaminophen 325 mg oral tablet 975 mg, 3, tablet, By Mouth, Every 6 hours, for 7 days, # 84 tablet, Refills 0, Tot. Refills 0, Acute 11/10/24 1:06:00 PM EST, 11/03/24 1:06:00 PM EST, Route to Pharmacy Electronically, [facility], Partial fill upon patient request if the prescription is for a schedule II opioid drug., 163, cm, 11/02/24 19:46:00 EST, Height, 67.1, kg, 11/02/24 19:52:00 EST, Dry Weight Start Date: 11/03/24 Stop Date: 11/10/24 Status: Ordered Quantity: 84.0 Unit: tablet Repeat number: 1 aspirin 81 mg oral capsule 1 capsule = 81 mg, By Mouth, Every 24 hours, 0 Refills, Maintenance, 11/21/23 10:50:00 AM EST, Partial fill upon patient request if the prescription is for a schedule II opioid drug. Start Date: 11/21/23 Status: Ordered Repeat number: 1 atorvastatin 40 mg oral tablet 1 tablet = 40 mg, By Mouth, Daily at bedtime, 0 Refills, Maintenance, 11/21/23 10:51:00 AM EST, Partial fill upon patient request if the prescription is for a schedule II opioid drug. Start Date: 11/21/23 Status: Ordered Repeat number: 1 clonazePAM 0.5 mg oral tablet 1 tablet = 0.5 mg, By Mouth, 3 times a day, PRN Anxiety, 0 Refills, Maintenance, 11/21/23 10:51:00 AMEST, Partial fill upon patient request if the prescription is for a schedule II opioid drug. Start Date: 11/21/23 Status: Ordered Repeat number: 1 Dilaudid 2 mg oral tablet 2 mg, Tablet, By Mouth, Every 4 hours, PRN for Pain , Moderate, Routine, 11/02/24 5:21:00 PM EST Notes: Drug Shortage 10/26/24- use 4 mg tablets when possible Start Date: 11/02/24 Stop Date: 11/09/24 Status: Ordered Repeat number: 1 Dilaudid 4 mg oral tablet 1 tablet = 4 mg, By Mouth, Every 4 hours, PRN as needed for pain, for 3 days, # 15 tablet, 0 Refills, Acute 11/06/24 1:50:00 PM EST, 11/03/24 1:50:00 PM EST, Tablet, [facility], Partial fill upon patient request if the prescription is for a schedule II opioid drug., 163, cm, 11/02/24 19:46:00 EST, Height, 67.1, kg, 11/02/24 19:52:00 EST, Dry Weight Start Date: 11/03/24 Stop Date: 11/06/24 Status: Ordered Quantity: 15.0 Unit: tablet Repeat number: 1 gabapentin 100 mg oral capsule 100 mg, Capsule, By Mouth, VANIA, 11/03/24 11:46:00 AM EST Start Date: 11/03/24 Stop Date: 11/03/24 Status: Completed Repeat number: 1 gabapentin 100 mg oral capsule 100 mg, Capsule, By Mouth, 11/03/24 3:00:00 PM EST Start Date: 11/03/24 Stop Date: 11/03/24 Status: Completed Repeat number: 1 gabapentin 100 mg oral capsule 100 mg, 1, capsule, By Mouth, 3 times a day, # 30 capsule, Refills 0, Tot. Refills 0, Maintenance, 11/03/24 1:06:00 PM EST, Route to Pharmacy Electronically, [facility], Partial fill upon patient request if the prescription is for a schedule II opioid drug., 163, cm, 11/02/24 19:46:[address], Height, 67.1, kg, 11/02/24 19:52:00 EST, Dry Weight Start Date: 11/03/24 Stop Date: 11/13/24 Status: Ordered Quantity: 30.0 Unit: capsule Repeat number: 1 HydroCORTisone 10 mg oral tablet See Instructions, 2 tablets in the morning at 8am@ (20mg). 1 tablet at 4pm. (total dose 30 mg daily), # 90 tablet, 3 Refills, Maintenance, 11/03/24 8:00:00 PM EST, Tablet, [facility], Partial fill upon patient request if the prescription is for a schedule II opioid drug., 163, cm, 11/02/24 19:46:00 EST, Height, 67.1, kg, 11/02/24 19:52:00 EST, Dry Weight Start Date: 11/03/24 Status: Ordered Quantity: 90.0 Unit: tablet Repeat number: 4 hydrOXYzine hydrochloride 25 mg oral tablet 1 tablet = 25 mg, By Mouth, 3 times a day, PRN as needed for anxiety, for anxiety, # 40 tablet, 0 Refills, Maintenance, 07/23/24 1:07:00 PM EDT, Tablet, Partial fill upon patient request if the prescription is for a schedule II opioid drug. Start Date: 07/23/24 Status: Ordered Quantity: 40.0 Unit: tablet Repeat number: 1 Lexapro 20 mg oral tablet 1 tablet = 20 mg, By Mouth, Daily, 0 Refills, Maintenance, 11/21/23 10:51:00 AM EST, Partial fill upon patient request if the prescription is for a schedule II opioid drug. Start Date: 11/21/23 Status: Ordered Repeat number: 1 mesalamine 0.375 g oral capsule, extended release 4 capsule = 1.5 Gm, By Mouth, Daily in AM, # 120 capsule, 0 Refills, Maintenance, 07/23/24 1:07:00 PM EDT, CR Capsule, Partial fill upon patient request if the prescription is for a schedule II opioiddrug. Start Date: 07/23/24 Status: Ordered Quantity: 120.0 Unit: capsule Repeat number: 1 traZODone 150 mg oral tablet 1 tablet = 150 mg, By Mouth, 0 Refills, Maintenance, 11/21/23 10:51:00 AM EST, Partial fill upon patient request if the prescription is for a schedule II opioid drug. Start Date: 11/21/23 Status: Ordered Repeat number: 1 Procedures Procedure Date Related Diagnosis Body Site Status Laparoscopic left adrenalectomy 11/02/24 Completed Vital Signs Most recent to oldest [Reference Range]: 1 2 3 Height 163 cm (11/02/24 7:46 PM) 163 cm (11/02/24 9:35 AM) 163 cm (10/28/24 3:09 PM) Weight 67.1 kg (11/02/24 7:46 PM) 67.1 kg (11/02/24 9:35 AM) 67.1 kg (10/28/24 3:09 PM) Oxygen Saturation [94-100 %] 96 % (11/03/24 11:00 AM) 91 % *L* (11/03/24 7:00 AM) 94 % (11/03/24 3:00 AM) Pulse Rate [55-90 bpm] 65 bpm (11/03/24 11:00 AM) 65 bpm (11/03/24 8:00 AM) 72 bpm (11/03/24 7:00 AM) Body Mass Index [18.5-24.99 kg/m2] 25.25 kg/m2 *H* (11/02/24 7:46 PM) 25.25 kg/m2 *H* (11/02/24 9:35 AM) 25.25 kg/m2 *H* (10/28/24 3:09 PM) Blood Pressure [90-138/55-84 mm Hg] 98/45mm Hg (11/03/24 11:00 AM) 106/51mm Hg (11/03/24 8:00 AM) 84/41mm Hg *L* (11/03/24 7:00 AM) Respiratory Rate [16-30 br/min] 18 br/min (11/03/24 3:07 PM) 18 br/min (11/03/24 3:07 PM) 18 br/min (11/03/24 12:25 PM) Temperature [96.8-100.4 DegF] 97.5 DegF (11/03/24 11:00 AM) 97.8 DegF (11/03/24 7:00 AM) 98.1 DegF (11/03/24 3:00 AM) Liters per Minute 2 L/min (11/02/24 7:15 PM) 2 L/min (11/02/24 7:00 PM) 2 L/min (11/02/24 6:45 PM) Mode of Delivery (Oxygen) Room air (11/03/24 11:00 AM) Room air (11/03/24 7:00 AM) Room air (11/03/24 3:00 AM) Blood pressure sites Arm, left (11/03/24 11:00 AM) Arm, left (11/03/24 7:00 AM) Arm, left (11/03/24 3:00 AM) Temperature Route Oral (11/03/24 11:00 AM) Oral (11/03/24 7:00 AM) Oral (11/03/24 3:00 AM) Dry Weight 67.1 kg (11/02/24 7:46 PM) 67.1 kg (11/02/24 9:35 AM) 67.1 kg (10/28/24 3:09 PM) Dry Weight Obtained Via Standing scale (11/02/24 9:35 AM) Social History Social History Type Response Smoking Status Former smoker, quit more than 30 days ago; Other: Quite in 2019; entered on: 07/23/24 Sex Sex Representation Female (finding) History and physical note * Event Display: History and Physical Hospital Authored Date: * Event Display: History and Physical Hospital Authored Date: Hospital Progress note * Jayne Krishnan RN: PERFORM, SIGN, VERIFY Event Display: Progress Note Hospital Authored Date: Patient: IVY TERESA Age: 59 years Sex: Female : 1965 Associated Diagnoses: None Author: Jayne Krishnan RN Findings Narrative/Incidental PT DISCHARGED HOME WITH FAMILY, DISCHARGE INSTRUCTIONS GIVEN.. * Rik Ahumada RN: PERFORM, SIGN, VERIFY Event Display: Progress Note Hospital Authored Date: Patient: IVY TERESA Age: 59 years Sex: Female : 1965 Associated Diagnoses: None Author: Rik Ahumada RN Findings Problem Related to Alteration in Genitourinary : Alteration in Genitourinary Function/new 11/02/2024 21:00 EST Alteration in Status Related to Other: Adrenalectomy Goals & Outcomes, Genitourinary Pt will achieve normal/improved fluid balance, Pt will maintain adequate GI function appropriate for pt, Pt will maintain adequate function appropriate for pt,Pt will maintain normal fluid balance, Pt will resume normal pattern of elimination, Pt/caregiver will state understanding of self-care skills, Pt will report acceptable level of comfort/pain, Pt will not experience S/S of infection prior to D/C, Pt will verbalize nutritional plan post surgery Interventions, Assess/monitor/maintain Genitourinary status, Assist & encourage pt with meticulous willa care, Encourage PO fluid intake as allowed by diet, Assess for s/s of infection, Encourage pt to avoid gas producing foods & drink, Monitor effects of meds that improve motility, TeachPt/caregiver activity instructions, Monitor effects of meds that minimize gaseous distention BH Goals/Interventions, Genitourinary Yes Genitourinary, Problem Start 11/02/2024 19:46 Reviewed Plan with, Genitourinary Patient Patient Progression, Genitourinary Patient progressing according to plan Genitourinary, Problem Ongoing Yes . Nursing Data Genitourinary Data. : Genitourinary Data. 11/02/2024 21:00 EST Urinary catheter type None Urine Color Yellow Urine Description Clear WNL except . Integumentary Data. : Integumentary Data. 11/02/2024 20:00 EST Skin Color Normal for ethnicity Skin Description Dry Skin Temperature Warm Skin Integrity Not intact Skin Turgor Elastic Mucous Membrane Color [place] Mucous Membrane Description Moist Sensory Perception No impairment Moisture Rarely moist Activity Walks occasionally Mobility No limitations Nutrition Adequate Friction and Shear No apparent problem Yunier Score 21 Nursing Care Plan initiated/updated Yes Integumentary WNL except Abdomen Multiple scattered Skin Abnormality Type: Surgical incision Wound Assessment Activity: Admission assessment 2nd person integumentary assessment: Pratima Torres RN Wound Present on Admission: Yes Surgical Incision Detailed Assessment: Yes Incision Surgical Detail: Laparoscopic site Incision Number of Sites: 4 Wound Dressing: Band-Aid Wound Dressing Assessment: Clean, Dry, Intact Wound Dressing Activity: Intact Wound Surrounding Tissue: Normal . Vital Signs : VITAL SIGNS SECTION 11/03/2024 3:00 EST Temperature 98.1 DegF Temperature Route Oral Pulse Rate 70 bpm Respiratory Rate 18 br/min Systolic Blood Pressure 108 mm Hg Diastolic Blood Pressure 49 mm Hg L Blood pressure sites Arm, left Pulse Pressure 59 mm Hg Oxygen Saturation 94 % Mode of Delivery (Oxygen) Room air . Evaluation P: Alteration in genitourinary Function I: Please see care plan above E: Patient arrived to unit at 1945. Patient oriented to room and call mckeon. 2 skin check assessmentcompleted with Melissa Andujar RN. Patient is alert and oriented to person, place, time, and event.Vital signs stable. Fluids running per MD orders. Patient denies chest pain or shortness of breath.Patient denies dizziness. Lung sounds clear diminished at the bases on room air, with symmetrical lung expansion. Patient utilizing incentive spirometer to 1,000 and able to demonstrate proper usage.Patient denies numbness or tingling. Patient has +CMS and +Pedal pulses. No edema. Compression boots applied to bilateral lower extremities. Patient denies nausea or vomiting. Patient is passing flatu lence. Patient denies passing flatulence. Abdomen is softly distended, round, and tender to all quadrants.Abdomen with 4 lapsites and Band-Aids clean, dry, and intact. Hypoactive bowel sounds in all 4 quadrants upon auscultation. Last bowel movement on 11/02.Patient voiding clear yellow urine without difficulties. Patient is on clear liquid diet and tolerating well. Ambulating with standby assistance. Patient resting comfortably at this time in bed. Bed in lowest locked position. Call mckeon within reach and patient is able to utilize properly. . * Brad Jonas MD: PERFORM Event Display: Progress Note Hospital Authored Date: [id number] Patient: ??IVY TERESA ? Age:??59 Years?Sex:??Female?:??1965?? Patient with left adrenalectomy with Dr. FOREMAN??seen and evaluated bedside for postoperative check.?? Patient endorsing abdominal pain however states the medication??helps control it.?? Patient endorseshaving drank p.o. without associated nausea vomiting or pain. ??Endorses having voided and ambulating. ?? Patient is appropriately tender to palpation LUQ,??abdomen distended, soft, no concern for peritonitis.?? Incisions are C/C/I.?? Patient remains on LR at 100. Note * Jayne Krishnan RN: PERFORM Event Display: Discharge/Transfer Note Hospital Authored Date: Nursing Discharge Note Entered On: 11/03/2024 17:22 EST Performed On: 11/03/2024 17:21 EST by Jayne Krishnan RN Nursing Discharge Note 2 Discharge Time : 11/03/2024 17:00 EST Discharge Level of Care at Discharge : Home/Skilled Nursing/Foster Care Patient Left Unit Via : Wheelchair Patient Accompanied Off Unit with : Significant other DC Instructions Provided & Signed by Pt : Yes Patient Understands D/C Instructions : Yes Patient Instructions Discharge Signed : Yes Did Pt have Specialty Bed or Wound Vac : No Jayne Krishnan RN - 11/03/2024 17:21 EST * Sander SEARS, Ethan Ch: MODIFY Ethan Boucher MD: MODIFY, MODIFY Ethan Boucher MD: MODIFY Event Display: Discharge/Transfer Note Hospital Authored Date: Patient: ??IVY TERESA ? Age:??59 Years?Sex:??Female?:??1965?? Admit Date Admission Date: 11/02/2024 Discharge Date 11/03/2024 Discharge Diagnoses Adrenal benign tumor, 11/02/2024 Hospital Course Ivy is a 59-year-old female with past medical history significant??for ulcerative colitis on mesalamine,??COPD,??previous tobacco use??(50 pack history), hypertension, hyperlipidemia,??and anxiety who??presents to [facility]??for??scheduled??laparoscopic L adrenalectomy??for??an inci dentally found left adrenal mass. She underwent this operation 11/[address] Colbert with no??complications. On POD1 (11/03), am cortisol was low at 2.4. She received IV hydrocortisone for management. Otherwise she has been recovering??appropriately??post-operatively. She is voiding, ambulating and to lerating a diet without issue. She endorses post-surgical pain that is well- controlled on the current regimen. She has been cleared for discharge from a surgical perspective, and will be discharged home today with oral steroids, PO Dilaudid and tylenol.?? Her concaving machine operator was contacted prior to discharge??and deemed??that she should be sent home on??hydrocortisone 20 mg in the morning and 10 mg at night.?? With follow-up planned in 2 weeks time Objective/Physical Exam on Day of Discharge Vitals & Measurements T:??97.5?F?? HR:??65??(Peripheral)?? RR:??18?? BP:??98/45?? SpO2:??96%?? HT:??163??cm?? WT:??67.1??kg?? BMI:??25.25?? Constitutional: Alert, in no distress. Mental Status: Oriented to person, place and time. Head: Normocephalic. Eyes: Extraocular muscles intact. Ear, Nose and Throat: Oropharynx clear, mucous membranes moist. Trachea midline. Neck: Supple, Full range of motion. Respiratory: No wheezing, no cough, no evidence of respiratory distress. On RA. Cardiovascular: RRR. Gastrointestinal: Abdomen soft, appropriately TTP, non-distended with mild edema. Port sites with overlying Steri-strips and Band-aids, c/d/i. Neurologic: Moves all extremities spontaneously. Sensation intact bilaterally. Skin: No rashes or lesions. Musculoskeletal: Normal range of motion. Assessment/Plan 59F with PMH UC, HTN, HLD and anxiety who presented for scheduled L??laparoscopic adrenalectomy after an incidental L adrenal adenoma was discovered. Underwent laparoscopic L adrenalectomy 11/[address] Colbert. She is??recovering appropriately and is stable for discharge home today, 11/03. POD1 am cortisol levels??low; received IV steroids and will go home on PO regimen per endocrinology. ?? Plan: -DC with PO??Dilaudid, Tylenol and PO steroids -Ok to resume all home medications -Follow up in clinic 11/[address] Colbert -See??discharge instructions for patient instructions Future Appointments 2024 1:20 PM EST ?? With: Sayra SEARS, [facility] Where: [facility] [address] [place] [address] Drive [address] [place] [address]- Status: Pending Patient Discharge Condition Stable Discharge Disposition Home Procedures Performed This Visit Adrenalectomy Laparoscopic, Left Inpatient Medications Medications (16) Active SCHEDULED: (11) Acetaminophen 325 mg Tablet (Acetaminophen Tablet) ??975 mg, By Mouth, Every 6 hours Aspirin 81 mg Chew Tablet (aspirin 81 mg oral tablet, chewable) ??81 mg, By Mouth, Every 24 hours Atorvastatin 40 mg Tablet (atorvastatin 40 mg oral tablet) ??40 mg, By Mouth, Daily at bedtime Docusate Sodium 100 mg Capsule (Docusate Sodium Capsule) ??100 mg 1 capsule, By Mouth, 2 times a day Escitalopram 10 mg Tablet (Lexapro 10 mg oral tablet) ??20 mg, By Mouth, Daily Gabapentin 100 mg Capsule (gabapentin 100 mg oral capsule) ??100 mg, By Mouth, 3 times a day Hydrocortisone 20 mg Tablet (HydroCORTisone 5 mg oral tablet) ??20 mg, By Mouth, Daily in AM Hydrocortisone 5 mg Tablet (HydroCORTisone 5 mg oral tablet) ??10 mg, By Mouth, Daily before dinner Magnesium Hydroxide 8% Susp UD (Milk of Magnesia Liquid) ??30 mL, By Mouth, 2 times a day Senna Tablet ??8.6 mg 1 tablet, By Mouth, Daily Trazodone 50 mg Tablet (traZODone 50 mg oral tablet) ??150 mg, By Mouth, Daily at bedtime CONTINUOUS: (0) PRN: (5) Clonazepam 0.5 mg Tablet (clonazePAM 0.5 mg oral tablet) ??0.5 mg, By Mouth, 3 times a day Gabapentin 100 mg Capsule (gabapentin 100 mg oral capsule) ??100 mg, By Mouth, 3 times a day HYDROmorphone 2 mg Tablet (Dilaudid 2 mg oral tablet) ??2 mg, By Mouth, Every 4 hours nalOXONE ??400mcg/mL Inj (nalOXONE Inj) ??0.04 mg 0.1 mL, IV Push, Every 5 minutes Ondansetron 2mg/mL Inj (2mL Vial) (Ondansetron Inj) ??4 mg, IV Push, Every 6 hours Discharge Medications Acetaminophen (acetaminophen 325 mg oral tablet)?975?Milligram?3?tablet?By Mouth?Every 6 hours?for 7?Days Aspirin (aspirin 81 mg oral capsule)?1?capsule?81?Milligram?By Mouth?Every 24 hours Atorvastatin (atorvastatin 40 mg oral tablet)?1?tab(s)?40?Milligram?By Mouth?Daily Clonazepam (clonazePAM 0.5 mg oral tablet)?1?tab(s)?0.5?Milligram?By Mouth?3 times a day?as needed?Anxiety Escitalopram (Lexapro 20 mg oral tablet)?1?tab(s)?20?Milligram?By Mouth?Daily Gabapentin (gabapentin 100 mg oral capsule)?100?Milligram?1?capsule?By Mouth?3 times a day?for 10?Days HydroCORTisone (HydroCORTisone 10 mg oral tablet)?See Instructions?2 tablets in the morning at 8am@ (20mg). 1 tablet at 4pm. (total dose 30 mg daily) Hydromorphone (Dilaudid 2 mg oral tablet)?2?Milligram?By Mouth?Every 4 hours?as needed?Pain , Moderate?for 3?Days HydrOXYzine (hydrOXYzine hydrochloride 25 mg oral tablet)?1?tab(s)?25?Milligram?By Mouth?4 times a day?as needed?for anxiety?for anxiety?3 times a day?as needed Mesalamine (mesalamine 0.375 g oral capsule, extended release)?4?capsule?1.5?gram?ByMouth?Daily in AM Trazodone (traZODone 150 mg oral tablet)?1?tab(s)?150?Milligram?By Mouth Labs Last 24 Hours CHEM GENERAL ? Event Name?? Event Result?? Date/Time?? Sodium 143 mmol/L 11/03/24 08:23:00 Chloride 111 mmol/L??High 11/03/24 08:23:00 Bicarbonate Level 21 mmol/L??Low 11/03/24 08:23:00 Anion Gap 11 11/03/24 08:23:00 ? Patient Instructions If you develop fever, chills, increased pain, nausea, vomiting, bleeding, or increased redness or pus around the wound please call the surgery office at . A narcotic was prescribed to help reduce your pain. Take only as needed for your pain; you may choose to fill the prescription in a lesser amount. When taking opioids, there is an increase chance of abuse and/or overdose. Other side effects/complications include nausea, vomiting, difficulty breathing, sedation and constipation. Please consider taking a stool softener (Docusate)??to help prevent constipation. Please take medications as prescribed and do not drive while on narcotic medications. Refer to handout for more information. ?? You may continue to take Tylenol 1000mg every 6 hours. Please do this for the next 3 days, and thenas needed for pain.? Incisions are closed with absorbable sutures and overlying Steri-strips and bandages. You may remove the bandages 48 hours after surgery. Please leave Steri-strips in place as they will fall off overtime.?Okay to shower 48 hours after surgery. ?? If you have any questions, please call the surgery office at . Otherwise, we will seeyou at your post-op appointment with Dr. Colbert??11/19.? Please call your Primary Care Provider within 1 week for post hospital follow up and review of yourmedications. ?? Your steroid prescription is??20 mg of??hydrocortisone (2x??10 mg??tablets at 0800) , daily in the am.?? And 10 mg (1x10mg tablet at 1600) in the evening. It is imperitive you take this every day.? Activity Instructions ?? -No heavy lifting >10 lbs -Increase activity as tolerated -Encourage coughing and deep breathing, use of incentive spirometer -No tub baths until incision(s) has/have healed -May shower 48 hours after surgery -No driving until off narcotics and cleared by Surgery ?? * Sayra SEARS, Vinh: PERFORM Event Display: Discharge/Transfer Note Hospital Authored Date: Seen and evaluated today.c/o LUQ??incisional pain, tolerated diet.?? Borderline hypotension overnight??with SBP??in 90s, morning cortisol today 2.4, likely has??mild adrenal insufficiency. ??Given IV??hydrocortisone 50 mg this morning, discussed with Dr. Lea, discharged home on hydrocortisone??20 mg a.m./10 mg p.m. regimen. ??Already has outpatient follow-up with Dr. Lea at the end of this month. Discharge home later today * Eulogio GROVES, Jayne: PERFORM, MODIFY Event Display: Patient Education/Instruction Authored Date: [id number] Inpatient Adult Discharge Instructions. [address] [address] Name: IVY TERESA : 1965?? Visit: 11/02/2024 09:20?? Current Date: 11/03/2024 14:27 ?? Account: [id number]?? Inpatient Adult Discharge Instructions We would like to thank you for allowing us to assist you with your healthcare needs. The following includes patient education materials and information regarding your injury/illness. Our entire staffstrives to provide an excellent experience for our patients and their families. PLEASE ENSURE YOU FOLLOW-UP PER THE INSTRUCTIONS BELOW! ?? YOUR OPINION IS IMPORTANT TO US! Please complete the survey you may receive by mail or email. Your feedback will be used to make improvements to the healthcare experiences of our patients and their families. Surveys are administered by [employer]. ?? If further treatment with your primary care physician or another doctor is recommended, it is important for you to keep the appointment. Call your primary care physician or return to the Emergency Department immediately if your condition worsens, fails to improve, or new symptoms develop. If you need to find a doctor, you can call [facility] [employer] for a referral at [phone] or toll free at [phone] [phone] ([phone]) or log in to [email or web address].. ?? [facility], in keeping with [facility] guidance, no longer requires face masks for staff, patientsor visitors in most situations. Similiar to time spent indoors at other locations, there is the chance that you were exposed to repiratory viruses during your time with us (such as flu or COVID-19). If you develop symptoms concerning for a viral respiratory infection, please seek testing (and treatment if indicated) from your medical provider or home test kit. ?? You can view and manage your care through the patient portal or by using a health care cristóbal of your choosing. [employer] is a website that allows you to securely view your medical information including your hospital discharge summary, office visit summaries, medications and follow-up visits. You can also request appointments, renew medications, and request access to your medical information using a health care cristóbal of your choosing, or just ask a question. You can enroll at [email or web address] or register during your next office visit. You have been discharged from [facility], Patient Care Unit: SW6??. If you have any questions regarding these instructions, including results of studies pending, afteryou leave, please call us and we will be happy to assist you 13/05. [facility] Your Care Team Attending Physician Vinh Colbert MD?? Consulting Providers Vinh Colbert MD?? Discharging Providers Maira Thakkar Your Diagnosis Adrenal benign tumor Tests Performed Below is a partial list of the tests performed during your hospitalization. You may have had other tests and procedures not included in this list. Please discuss all test results with your provider. Cortisol Level Lytes Type and Screen Cortisol Level?? Electrolytes (Lytes)?? Pathology Tissue Request ()?? Type and Screen?? Primary Care Provider Raphael GALLARDO , Jose Suárez? Advance Directive Health Care Proxy on File No Patient refuses to discuss Discharge Vitals Temperature: 97.5 DegF Height: 163 cm Pulse Rate: 65 bpm Weight: 67.1 kg Respiratory Rate: 18 br/min Body Mass Index:??25.25 kg/m2??High Systolic Blood Pressure: 98 mm Hg Body surface area: 1.74 Diastolic Blood Pressure:??45 mm Hg??Low ?? Oxygen Saturation: 96 % ?? Studies Pending All studies ordered during this hospital stay have been completed unless listed below. Please discuss all pending results with your provider listed above in these instructions. ?? Pathology Tissue Request ()?? What to do next Instructions From Your Doctor If you develop fever, chills, increased pain, nausea, vomiting, bleeding, or increased redness or pus around the wound please call the surgery office at . A narcotic was prescribed to help reduce your pain. Take only as needed for your pain; you may choose to fill the prescription in a lesser amount. When taking opioids, there is an increase chance of abuse and/or overdose. Other side effects/complications include nausea, vomiting, difficulty breathing, sedation and constipation. Please consider taking a stool softener (Docusate)??to help prevent constipation. Please take medications as prescribed and do not drive while on narcotic medications. Refer to handout for more information. ?? You may continue to take Tylenol 1000mg every 6 hours. Please do this for the next 3 days, and thenas needed for pain.? Incisions are closed with absorbable sutures and overlying Steri-strips and bandages. You may remove the bandages 48 hours after surgery. Please leave Steri-strips in place as they will fall off overtime.?Okay to shower 48 hours after surgery. ?? If you have any questions, please call the surgery office at . Otherwise, we will seeyou at your post-op appointment with Dr. Colbert??11/19.? Please call your Primary Care Provider within 1 week for post hospital follow up and review of yourmedications. ?? Your steroid prescription is??20 mg of??hydrocortisone (2x??10 mg??tablets at 0800) , daily in the am.?? And 10 mg (1x10mg tablet at 1600) in the evening. It is imperitive you take this every day.? Activity Instructions ?? -No heavy lifting >10 lbs -Increase activity as tolerated -Encourage coughing and deep breathing, use of incentive spirometer -No tub baths until incision(s) has/have healed -May shower 48 hours after surgery -No driving until off narcotics and cleared by Surgery ? Orders? 11/03/24 13:39:00 EST?? Prescriptions??, ??11/03/24 13:39:00 EST?? Scheduled Follow-Up Appointments 2024 1:20 PM EST ?? With: Vinh Colbert MD Where: [facility] [address] [place] [address] Drive [address] [place] [address]- Status: Pending Discharge Medications MALICKIVY :1965 Visit Date:11/02/2024 Medications: Please continue your medications until treatment is completed or stopped by your provider. Medications not listed below should be discontinued. Discuss any questions related to medications with your provider. What How Much When Instructions Next Dose New Acetaminophen (acetaminophen 325 mg oral tablet) 3 tab(s) Oral Every 6 hours Duration: 7 Days Pickup at [facility] 3 6pm 11-03-24 New Gabapentin (gabapentin 100 mg oral capsule) 1 capsule Oral 3 times a day Duration: 10 Days Pickup at [facility] 3 9pm 11-03-24 New HydroCORTisone (HydroCORTisone 10 mg oral tablet) See instructions Refills: 3 2 tablets in the morning at 8am@ (20mg). 1 tablet at 4pm. (total dose 30 mg daily) ?? Pickup at [facility] 3 4pm 11-03-24 New Hydromorphone (Dilaudid 4 mg oral tablet) 1 tab(s) Oral Every 4 hours as needed for as needed for pain Duration: 3 Days Pickup at [facility] 3 as needed, last dose given at 3pm 11-03-24 Unchanged Aspirin (aspirin 81 mg oral capsule) 1 capsule Oral Every 24 hours 11-04-24 Unchanged Atorvastatin (atorvastatin 40 mg oral tablet) 1 tab(s) Oral Daily at Bedtime 11-03-24 Unchanged Clonazepam (clonazePAM 0.5 mg oral tablet) 1 tab(s) Oral 3 times a day as needed for Anxiety as needed Unchanged Escitalopram (Lexapro 20 mg oral tablet) 1 tab(s) Oral Daily 11-04-24 Unchanged HydrOXYzine (hydrOXYzine hydrochloride 25 mg oral tablet) 1 tab(s) Oral 3 times a day as needed for as needed for anxiety for anxiety ?? as needed Unchanged Mesalamine (mesalamine 0.375 g oral capsule, extended release) 4 capsule Oral Daily in the morning 11-04-24 Unchanged Trazodone (traZODone 150 mg oral tablet) 1 tab(s) Oral 11-03-24 Pharmacy Information [facility] 3: [address] [place], [place] [id number] [phone] Prescription Given During Visit Acetaminophen (acetaminophen 325 mg oral tablet) - 3 tablet = 975 mg, By Mouth, Every 6 hours, # 84tablet, 0 Refills, [address] [address] [phone]?? Gabapentin (gabapentin 100 mg oral capsule) - 1 capsule = 100 mg, By Mouth, 3 times a day, # 30 capsule, 0 Refills, [place] [address] [phone]?? HydroCORTisone (HydroCORTisone 10 mg oral tablet) - , # 90 tablet, 3 Refills, 2 tablets in the morning at 8am@ (20mg). 1 tablet at 4pm. (total dose 30 mg daily), [facility] [address] [address] [phone]?? Hydromorphone (Dilaudid 4 mg oral tablet) - 1 tablet = 4 mg, By Mouth, Every 4 hours, # 15 tablet, 0 Refills, [facility] [place] [address] [phone]?? Laboratory Results Below is a partial list of the most recent Laboratory test results done prior to this discharge. You may have had other tests and procedures not included in this list. Please discuss all test resultswith your provider. Cortisol Level (11/03/2024) ???Cortisol Level - 2.4 ??g/dL Lytes (11/03/2024) ???Sodium - 143 mmol/L???Potassium - 4.6 mmol/L???Chloride - 111 mmol/L???Bicarbonate Level - 21 mmol/L???Anion Gap - 11 Type and Screen (11/02/2024) ???Blood Type - B Positive???Antibody Screen - Negative You will be contacted within 72 hours with your results. Allergies (NKA means No Known Allergies) ChloraPrep One-Step??(rash) oxyCODONE??(Hives) Problems No qualifying data available Education Materials Below is the list of Educational Leaflet Providered with your Discharge Instructions. Valuables and Belongings I fully understand and agree that [facility] accepts no responsibility for all my personal property including clothing, toilet articles, radios, jewelry, dentures, hearing aids, rings, money, or any other property that is in my possession or is brought to me after admission. I understand certain valuables may be placed in a hospital safe for a short period of time. I understand that the hospital is not liable for loss or damage due to accident, fire, or other natural occurrence while said property is in the safe. I accept full responsibility for any personal property that I keep with me, and will not hold the hospital responsible in case of loss or disappearance. I acknowledge that i have been encouraged to send valuables and belongings home. ?? Review of Valuable and Belonging List: With patient, With family Date for Pt to Sign Valuables/Belongings: 11/02/24 19:54:00 ?? Other Discharge Information ? Pulmonary Rehab Status?? Pulmonary Rehab Discharge Status?? Respiratory Rate: 18 br/min ? Common Emergency Awareness Tips IS IT A STROKE? Act FAST and Check for these signs: FACE Does the face look uneven? ARM Does one arm drift down? SPEECH Does their speech sound strange? TIME Call at any sign of stroke ?? Heart Attack Signs Chest discomfort: Most heart attacks involve discomfort in the center of the chest and lasts more than a few minutes, or goes away and comes back. It can feel like uncomfortable pressure, squeezing, fullness or pain. Discomfort in upper body: Symptoms can include pain or discomfort in one or both arms, back, neck, jaw or stomach. Shortness of breath: With or without discomfort. Other signs: Breaking out in a cold sweat, nausea, or lightheaded. Remember, MINUTES DO MATTER. If you experience any of these heart attack warning signs, call to get immediate medical attention! ?? Smoking can increase your chances of developing chronic health problems and can cause harmful effects to other family members in your house. If you smoke, you are strongly encouraged to quit. Please call [facility] [employer] [facility] at [phone] or [phone] ([phone]) or log in to [email or web address] for referrals to smoking cessation programs. ?? 317 Suicide & Crisis Lifeline is available 13/05 if you or someone you know needs to find a reason to keep living. By calling 409 you'll be connected to a skilled, trained counselor at a crisis center in your area. INPATIENT DISCHARGE INSTRUCTIONS SIGNATURE PAGE IVY TERESA Location:[facility] Registration Date and Time:11/02/2024 09:20 EST Primary Care Physician: Jose Lim NP, Attending Physician: Sayra SEARS, Vinh, IVY RAMACHANDRAN, have received the above patient education materials/instructions and have verbalized understanding. If ambulance or transport services are being used I further acknowledge being given a choice of service. ?? If you need to contact me, please call me at this number: . Patient/Cover Maker Name: Patient/Cover Maker Signature: Relationship to Patient: Witness Name/Signature: Date: Patient Care team information Care Team Personnel Name: Jose Lim NP Position: Reference Physician Member Role: PCP Address: [address] [place] [address] Telecom: Name: Jayne Krishnan RN Position: S RN Member Role: Primary Care Nurse Care Team Related Persons Name: DMITRY TERESA Insurance Providers Guarantor name: LEONIL[employer] Health Plan Information #: 1 Payer: [employer] Member Number: [id number] Policy Number: NA Group Number: [id number] [employer] Plan Information #: 2 Payer: [employer] Member Number: [id number] Policy Number: LEONILA Group Number: NA
== END 2024-11-18 11:46 | disposition home or self-care (01) ==
PROVIDERS: PCP Nurse Practitioner Family; Visit Provider Internal Medicine Endocrinology, Diabetes & Metabolism
DX: E27.8 Other specified disorders of adrenal gland (principal)
CPT/HCPCS: 99213

== ENCOUNTER → 2024-11-18 10:47 | Outpatient (BNVA) | payer OTHER, SELFPAY | PROVIDERS: PCP Nurse Practitioner Family; Visit Provider Internal Medicine Endocrinology, Diabetes & Metabolism | DX: E27.8 Other specified disorders of adrenal gland (principal) | CPT/HCPCS: 99212 ==

== ENCOUNTER 2024-11-23 11:18 | Outpatient (AMB) | payer OTHER, SELFPAY ==
[2024-11-23 11:35] VITALS: BP 110/70; PULSE 76; TEMP 36.7; O2SAT 97; BMI 25.2
--- NOTE | 2024-11-23 11:35 | A.OFFPC_ITS ---
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: No Accompanied by: Self / Same As Patient Allergies acetaminophen [From Percocet] Allergy (Intermediate, Verified 11/23/24 12:05) Hives chlorhexidine Allergy (Mild, Verified 11/23/24 12:05) Rash oxycodone Adverse Reaction (Intermediate, Verified 11/23/24 12:05) Rash Medication List - Last Reconciled 11/23/24 by GOVIND Villa- aspirin (Ecotrin Low Strength) 81 mg PO DAILY atorvastatin 40 mg PO BEDTIME 90 days clonazepam 0.5 mg PO DAILY PRN 15 days docusate sodium 100 mg PO BEDTIME escitalopram oxalate 20 mg PO DAILY gabapentin 200 mg (2 x 100 mg) PO TID 30 days hydrocortisone 10 mg PO TID hydrocortisone sod succ (PF) (Solu-Cortef Act-O-Vial (PF)) 100 mg (2 mL) IM DAILY hydroxyzine HCl 25 mg PO TID PRN mesalamine ER (Apriso) 1.5 grams (4 x 0.375 gram) PO DAILY syringe with needle (CareTouch Luer Lock Syringe with needle) As directed trazodone 200 mg PO BEDTIME Tobacco use date assessed: 11/23/24 Dental Screening Dental Screen Date: 11/23/24 Did you have a dental visit in the last 12 months?: Yes Did you have a dental problem in the last 6 months where you did not have access to dental care?: No Was dental information given to patient?: Patient has dentist HPI 5m follow up HPI Details Chief Complaint Postoperative discomfort and chills following left adrenalectomy. History of Present Illness The patient is a 59-year-old female presenting with postoperative discomfort following a left adrenalectomy conducted on November 02, 2024. Since the procedure, she has experienced chills but denies any fever. She reports some abdominal discomfort, particularly on the left side, which aligns with her recent surgery. There is tenderness upon palpation of the left abdomen. Currently, she is on postoperative management with gabapentin, initially dosed at 100 mg three times daily, which I have now increased to 200 mg three times daily. The patient has no history of vomiting, headache, blurred vision, chest pain, or increased shortness of breath. She is tolerating an oral diet well. The patient's understanding of the signs and symptoms of an adrenal crisis is noted, and she is equipped with home treatment in the form of an intramuscular injection. Social History Health Maintenance - Guidance on recognizing and managing a drenal crisis symptoms with prescribed IM injection. Review of Systems - Constitutional: Denies fever; reports chills. - Gastrointestinal: Denies vomiting; ruth erates diet well. - Neurological: Denies headache, blurred vision. - Respiratory: Denies increased shortnes s of breath. - Cardiovascular: Denies chest pain. Physical Exam General: Cooperative, healthy appearing, comfortable, no acute distress and well developed Orientation: Patient oriented x3 Limitations: No limitations Head: Normal to inspection Ears: Hearing grossly normal bilaterally Nose: Normal external nose present Face and sinus: Normal facial exam Eyes: Appearance normal, both eyes and all related structures Neck: Normal visual inspection and Yes full ROM Respiratory: Normal respiratory effort and able to speak in complete sentences. Clear to auscultation bilaterally Cardiovascular: Regular rate and rhythm. Normal S1 and S2 GI: Tenderness with palpation of the left abdomen, but nothing acute. Labs sites are clean, dry and intact Skin: No rashes or lesions noted Neuro: Patient oriented x3 Extremities: Normal to inspection Results Plan - Increase gabapentin dosage to 200 mg o rally three times daily for postoperative pain management. - Monitor for signs and symptoms of adre nal crisis and utilize home treatment if necessary. - Follow-up appointment with endocrinolo gist as planned. Discussion Notes I discussed with the patient the plan to increase her gabapentin dosage due to continued postoperative discomfort. We reviewed the self-management of adrenal crisis symptoms with her IM injection kit. I emphasized the importance of monitoring for any signs of adrenal insufficiency and the need for prompt treatment. The patient confirmed her understanding and was agreeable to this plan. 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 Patient Instructions - Take gabapentin 200 mg by mouth three times daily as directed. - Monitor for any signs of adrenal crisi s and use your IM injection as needed. - Follow up with your tail board worker as scheduled. - Continue to observe and report any new symptoms or changes. PFSH Medical History ([facility] 11[facility]23/24 @ 12[facility] Adrenal adenoma History of GI bleed Osteopenia Personal history of nicotine dependence Adrenal mass Hx of ulcerative colitis Adhesive capsulitis Postmenopause Centrilobular emphysema Intraductal papilloma of left breast Primary insomnia Depression with anxiety Peripheral vascular disease Proctitis HLD (hyperlipidemia) Surgical History (Updated 11/23/24 @ 12:22 [facility] History of partial adrenalectomy History of colonoscopy History of lumpectomy of left breast History of shoulder surgery History of esophagogastroduodenoscopy (EGD) History of intravascular stent placement Family History Father Cancer of prostate CAD (coronary artery disease) CHF (congestive heart failure) Diabetes mellitus Mother Brain cancer Myocardial infarction Sister Breast cancer Sister Crohn's disease Hepatitis B Brother No problems noted. Brother Cancer of prostate Son No problems noted. Son No problems noted. Daughter No problems noted. Family/Other Substance use disorder Social History Housing: House Alcohol intake: never Patient Tobacco Use Status: Former Tobacco user Tobacco use type: Cigarette Cigarettes Per Day: 2 Years Smoked: (onset 15yo, 1-1.5ppd x 34yrs, 40PYH, using vape for past 10yrs) Packs per year/per ci.00 e-Cigarette/Vaping Use: Currently Using Second Hand Smoke Exposure: No service: No Current occupational status: employed Current occupation: right hand dominant Current occupational exposures/hazards: No Cognitive needs: No Hearing needs: No Vision needs: No Questionnaire PHQ-9 Over the last 2 weeks, how often have you been bothered by any of the following problems? 1. Little interest or pleasure in doing things: nearly every day (since she had her bicep and tricep repaird- colar bone, shoulder bone, rotator cuff repair) 2. Feeling down, depressed, or hopeless: nearly every day 3. Trouble falling or staying asleep, or sleeping too much: nearly every day 4. Feeling tired or having little energy: nearly every day 5. Poor appetite or overeating: several days 6. Feeling bad about yourself - or that you are a failure or have let yourself or your family down: several days 7. Trouble concentrating on things, such as reading the newspaper or watching television: not at all 8. Moving or speaking so slowly that other people could have noticed. Or the opposite - being so fidgety or restless that you have been moving around a lot more than usual: not at all 9. Thoughts that you would be better off or of hurting yourself in some way: not at all Total score: 14 Depression Screening Interpretation: Positive (has a psychiatrist appt coming up in approx one month, denies any si or hi) Depression Screening Follow-up: Existing condition and In treatment Depression Screening Done: Yes 93455 - PHQ-9 Billing: Yes Source: Developed by Drs. Jorge Gonzales, Juani Gerard, Anuel Chalres and colleagues, with an educational jennie from [employer]. Thrive Questionnaire Date Thrive assessed: 11/23/24 I am a: Patient What is your living situation today?: I have a steady place to live Within the past 12 months, did the food you bought not last and you didn't have the money to get more?: Never true Within the past 12 months, did you worry whether your food would run out before you got money to buy more?: Never true Do you have trouble paying for medicines?: No Do you have trouble getting transportation to medical appointments?: No Do you have trouble paying your heating and electricity bill?: No Do you have trouble taking care of your child, family member or friend?: No Do you have trouble with day-to-day activities such as bathing, preparing meals, shopping, managing finances, etc.?: No Are you currently unemployed and looking for a job?: I choose not to answer this question Are you interested in more education?: No Please select the resources that you would like help with: None Currently or been in a relationship where the following occur: Made to feel afraid, No concerns reported and I choose not to answer THRIVE Score: 1 AUDIT C Alcohol Use Questionnaire (AUDIT-C) 1. How often do you have a drink containing alcohol?: Monthly or less 2. How many drinks containing alcohol do you have on a typical day when you are drinking?: 1 or 2 3. How often do you have six or more drinks on one occasion?: Never Total Score: 1 Score Reviewed/Action Taken: Yes MARILYNN-7 AMB Questionnaire MARILYNN-7 Date MARILYNN - 7 assessed: 11/23/24 Feeling nervous, anxious, or on edge: 3 = Nearly every day Not being able to stop or control worryin = Nearly every day Worrying too much about different things: 3 = Nearly every day Trouble relaxin = Nearly every day Being so restless that it is hard to sit still: 3 = Nearly every day Becoming easily annoyed or irritable: 0 = Not at all Feeling afraid as if something awful might happen: 3 = Nearly every day Total MARILYNN-7 score (0-4 normal; 5-9 mild; 10-14 moderate; 15-21 severe): 18 Source: Developed by Drs. Jorge Gonzales, Juani Gerard, Anuel Charles and colleagues, with an educational jennie from [employer]. MARILYNN-7 Assessment Billing MARILYNN-7 Assessment Tool: MARILYNN-7 Assessment 01735 Physical exam (Primary Care) Vital Signs: Last Vital Signs Pulse 76 11/23/24 11:35 BP 110/70 11/23/24 11:35 Pulse Ox 97 11/23/24 11:35 BMI result Body Mass Index 25.2 Tobacco/Smoking Status: Tobacco use Status Tobacco use date assessed 11/23/24 11/23/24 11:37 Patient Tobacco Use Status Former Tobacco user 11/23/24 11:37 Tobacco use type Cigarette 11/23/24 11:37 e-Cigarette/Vaping Use Currently Using 11/23/24 11:37 PHQ-9: PHQ-9 Score PHQ-9: Total score 14 11/23/24 11:37 Depression Screening Interpretation: Positive (has a psychiatrist appt coming up in approx one month, denies any si or hi) Depression Screening Follow-up: Existing condition and In treatment Thrive Assessment: Date of Thrive Assessment Date Thrive assessed 11/23/24 11/23/24 11:37 Currently or been in a relationship where the following occur: Made to feel afraid, No concerns reported and I choose not to answer Coding Level of Care Code Est Pt Level 3 (57811) Diagnoses History of partial adrenalectomy E89.6 Adrenal adenoma D35.00 Additional Codes MARILYNN-7 Assessment Billing - MARILYNN-7 Assessment Tool: MARILYNN-7 Assessment 33266 ([id number]) PHQ-9 - 28592 - PHQ-9 Billing: Yes ([id number]) Assessment & Plan Assessment & Plan (1) History of partial adrenalectomy: Comment: left adrenalectomy (laparoscopic) Code(s): E89.6 - Postprocedural adrenocortical (-medullary) hypofunction Category: Surgical (2) Adrenal adenoma: Code(s): D35.00 - Benign neoplasm of unspecified adrenal gland Category: Medical Plan . Medications: New gabapentin 200 mg (2 x 100 mg) PO TID 30 days 180 caps 0RF
== END 2024-11-23 12:27 | disposition home or self-care (01) ==
PROVIDERS: PCP Nurse Practitioner Family; Visit Provider Nurse Practitioner Family
DX: E89.6 Postprocedural adrenocortical (-medullary) hypofunction (principal); D35.00 Benign neoplasm of unspecified adrenal gland

== ENCOUNTER → 2024-11-23 11:18 | Outpatient (BNVA) | payer OTHER, SELFPAY | PROVIDERS: PCP Nurse Practitioner Family; Visit Provider Nurse Practitioner Family | DX: E89.6 Postprocedural adrenocortical (-medullary) hypofunction (principal); D35.00 Benign neoplasm of unspecified adrenal gland | CPT/HCPCS: 96127; 99212 ==

== ENCOUNTER 2025-02-16 11:16 | Outpatient (AMB) | payer OTHER, SELFPAY ==
--- NOTE | 2025-02-16 11:23 | A.OFFVIS_ITS ---
Vital Signs 02/16/25 11:24 Height 5 ft 4 in Weight 147 lb 0.773 oz BMI 25.2 BP 104/64 Blood Pressure Location Rt brachial Position Sitting Pulse 73 Pulse Source Pulse Oximeter Pulse Oximetry (%) 95 Oxygen Delivery Method Room Air Intake Visit Reasons: adrenal insufficency /s/p adrenalectomy Intake Note: Patient present today for Adrenal Insufficiency follow up. 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 Required: No Accompanied by: Self / Same As Patient Allergies acetaminophen [From Percocet] Allergy (Intermediate, Verified 02/16/25 11:25) Hives chlorhexidine Allergy (Mild, Verified 02/16/25 11:25) Rash oxycodone Adverse Reaction (Intermediate, Verified 02/16/25 11:25) Rash Medication List - Last Reconciled 02/16/25 by Jorge Lea MD aspirin (Ecotrin Low Strength) 81 mg PO DAILY atorvastatin 40 mg PO BEDTIME 90 days clonazepam 0.5 mg PO DAILY PRN 15 days clonidine HCl mg PO docusate sodium 100 mg PO BEDTIME escitalopram oxalate 20 mg PO DAILY gabapentin 200 mg (2 x 100 mg) PO TID 30 days hydrocortisone 10 mg PO TID hydrocortisone sod succ (PF) (Solu-Cortef Act-O-Vial (PF)) 100 mg (2 mL) IM DAILY hydroxyzine HCl 25 mg PO TID PRN mesalamine ER (Apriso) 1.5 grams (4 x 0.375 gram) PO DAILY syringe with needle (CareTouch Luer Lock Syringe with needle) As directed trazodone 200 mg PO BEDTIME HPI Comments Details: 59 YO F with who is seen in consultation at the request of PCP for adrenal incidentaloma. Had CT abdomen/pelvis [date] for which revealed 2.7 cm X 2.1 cm left adrenal mass. Prior CT dated 2019 revealed mass was present at same size. Unclear if CT with adrenal protocol MRI was performed to better characterize mass or with a biochemical workup was performed Denies history of spells with headache, flushing, diaphoresis, abdominal pain or diarrhea. Has any weight gain but only 6 lbs , frequent infections, easy bruisability, development of violaceous striae. No History of HTN, No history of anticoagulant use. Denies any weight loss, orthostatic symptoms, hypoglycemia. No history of malignancy or TB. 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 Status post left adrenalectomy by Dr. Colbert in 09/2024. Currently on hydrocortisone 20 mg QD after surgery. Has occasional episodes of dizziness and decreased appetite but this has been chronic due to ulcerative colitis [facility] Medical History (Updated 11/23/24 @ 12:22 by Jose Lim, [facility]) Adrenal adenoma History of GI bleed Osteopenia Personal history of nicotine dependence Adrenal mass Hx of ulcerative colitis Adhesive capsulitis Postmenopause Centrilobular emphysema Intraductal papilloma of left breast Primary insomnia Depression with anxiety Peripheral vascular disease Proctitis HLD (hyperlipidemia) Surgical History History of surgery History of partial adrenalectomy History of colonoscopy History of lumpectomy of left breast History of shoulder surgery History of esophagogastroduodenoscopy (EGD) History of intravascular stent placement Family History Father Cancer of prostate CAD (coronary artery disease) CHF (congestive heart failure) Diabetes mellitus Mother Brain cancer Myocardial infarction Sister Breast cancer Sister Crohn's disease Hepatitis B Brother No problems noted. Brother Cancer of prostate Son No problems noted. Son No problems noted. Daughter No problems noted. Family/Other Substance use disorder Social History Housing: House Alcohol intake: never Patient Tobacco Use Status: Former Tobacco user Tobacco use type: Cigarette Cigarettes Per Day: 2 Years Smoked: (onset 15yo, 1-1.5ppd x 34yrs, 40PYH, using vape for past 10yrs) e-Cigarette/Vaping Use: Currently Using Second Hand Smoke Exposure: No service: No Current occupational status: employed Current occupation: right hand dominant Current occupational exposures/hazards: No Cognitive needs: No Hearing needs: No Vision needs: No Physical Exam Vital Signs: BMI result Body Mass Index 25.2 Assessment & Plan Assessment & Plan (1) Adrenal mass: Comment: (stable 2.7 x 2.1 cm left adrenal nodule - 04/22/[address]) Code(s): E27.8 - Other specified disorders of adrenal gland Category: Medical Plan: This is a 59-year-old white female with a history of left adrenal mass present since 2019 stable in size. 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 Status post left adrenalectomy in 09/2024. Currently on hydrocortisone 20 mg q.d. physiologic replacement Plan is to have the patient hold hydrocortisone for 24 hours and recheck in a.m. cortisol level. If a.m. cortisol level is > 10, we will discontinue the hyd rocortisone. If borderline, may set up Cortrosyn stimulation test. Orders: Orders Cortisol Random 1 Week E27.8 - Other specified disorders of adrenal gland Medications: New hydrocortisone 20 mg PO DAILY 30 tabs 4RF Coding Level of Care Code Est Pt Level 3 (91407) Diagnoses Adrenal mass E27.8
[2025-02-16 11:24] VITALS: BP 104/64; PULSE 73; O2SAT 95; BMI 25.2
--- OUTSIDE RECORDS SUMMARY | 2025-02-16 13:17 | XMS_ITS | Clinical Summary ---
Author Organization [facility] [place] [address] Phone Care Team Providers Care Lapidary Apprentice Name Role Phone Jose Lim NP Primary Care Provider Allergies Active Allergy Reactions Criticality Noted Date Comments Chlorhexidin-Isopropyl Alcohol 12/25 Oxycodone 12/25/2024 Medications acetaminophen (TYLENOL) 325 mg tablet TAKE 3 TABLETS BY MOUTH EVERY 6 HOURS 11/03/19 25 Active atorvastatin (LIPITOR) 40 mg tablet Take 1 tablet (40 mg total) by mouth. at bedtime 10/05/20 24 Active bisacodyL (DULCOLAX) 5 mg EC tablet Take 2 tablets (10 mg total) by mouth. at bedtime 04/01/20 24 Active clonazePAM (KlonoPIN) 0.5 mg tablet Take 1 tablet (0.5 mg total) by mouth 1 (one) time each day if needed. Max Daily Amount: 0.5 mg 12/08/19 25 Active cloNIDine (CATAPRES) 0.1 mg tablet TAKE ONE TABLET BY MOUTH DAILY AT BEDTIME NEEDED FOR ANXIETY/INSOMNIA 12/15/19 25 Active docusate sodium (COLACE) 100 mg capsule Take 1 capsule (100 mg total) by mouth. at bedtime 05/25/20 24 Active escitalopram (LEXAPRO) 20 mg tablet Take 1 tablet (20 mg total) by mouth 1 (one) time each day in the morning. 12/15/19 25 Active gabapentin (NEURONTIN) 100 mg capsule Take 2 capsules (200 mg total) by mouth. 11/19/19 25 Active hydrocortisone (CORTEF) 10 mg tablet TAKE TWO TABLETS BY MOUTH EVERY MORNING AT 8AM. AND TAKE ONE TABLET AT 4PM. 11/30/19 25 Active Solu-CORTEF Act-O-Vial, PF, 100 mg/2 mL recon soln injection INJECT 100 MG 2 ML) INTRAMUSCULARLY DAILY 11/19/19 25 Active hydrOXYzine HCL (ATARAX) 25 mg tablet Take 1 tablet (25 mg total) by mouth 2 (two) times a day if needed for anxiety. 12/15/19 25 Active Apriso 0.375 gram 24 hr capsule TAKE FOUR CAPSULES BY MOUTH EVERY DAY 11/30/19 25 Active mesalamine (ROWASA) 4 gram/60 mL enema USE 1 ENEMA RECTALLY ONCE AT BEDTIME 05/01/20 24 Active traZODone (DESYREL) 100 mg tablet Take 2 tablets (200 mg total) by mouth. at bedtime 12/15/19 25 Active Active Problems Problem Noted Date Diagnosed Date Basal cell carcinoma (BCC) of left side of nose 12/25/2024 Encounters Date Type Department Care Team Description 02/01/2025 11:30 AM EDT Office Visit Plastic & Reconstructive Surgery [facility] [address] [facility] [address] [place] [phone] Bobo Fernandez, DO Basal cell carcinoma (BCC) of left side of nose (Primary Dx) 01/22/2025 9:00 AM EDT - 01/22/2025 10:45 AM EDT Surgery [facility] Main OR [address] [place] [phone] Bobo Fernandez, DO EXCISION LESION LEFT SIDE OF NOSE [48168 (CPT??) +1 more] 01/22/2025 8:24 AM EDT - 01/22/2025 9:40 AM EDT Hospital Encounter [facility] OR [address] [place] [phone] Bobo Fernandez, DO Basal cell carcinoma (BCC) of left side of nose Discharge Disposition: Home or Self Care 12/28/2024 Telephone Breast Care Center [facility] [address] [facility] [address] [place] [phone] Bobo Fernandez DO prior auth (Dr. eFrnandez ) 12/25/2024 11:30 AM EST Office Visit Breast Care [address] [place] [address] Bobo Fernandez DO Basal cell carcinoma (BCC) of left side of nose (Primary Dx) from Last 3 Months Social History Tobacco Use Types Packs/Day Years Used Date Smoking Tobacco: Never Assessed Comments Unknown Sex and Gender Information Value Date Recorded Sex Assigned at Female 01/21/2025 2:49 PM EDT Legal Sex Female 11:07 AM EST Gender Identity Female 01/21/2025 2:49 PM EDT Sexual Orientation Straight 01/21/2025 2: 49 PM EDT Last Filed Vital Signs Vital Sign Reading Time Taken Comments Blood Pressure 127/50 01/22/2025 9:37 AM EDT Pulse 58 01/22/2025 9:37 AM EDT Temperature 35.7 ??C (96.3 ??F) 01/22/2025 9:37 AM ED T Respiratory Rate 18 01/22/2025 9:37 AM EDT Oxygen Saturation 97% 01/22/2025 9:37 AM EDT Inhaled Oxygen Concentration - - Weight 65.8 kg (145 lb) 12/25/2024 11:18 AM EST Height 162.6 cm (5' 4 ) 12/25/2024 11:18 AM EST Body Mass Index 24.89 12/25/2024 11:18 AM EST Plan of Treatment Health Maintenance Due Date Last Done Comments Breast Cancer Screening 1965 DTaP,Tdap,and Td Vaccines (1 - Tdap) 1982 Pneumococcal Vaccine: 50+ Years (1 of 2 - PCV) 1982 Pneumococcal Vaccine: Pediatrics (0 to 5 Years) and At-Risk Patients (6 to 64 Years) (1 of 2 - PCV) 1982 Cervical Cancer Screening: Pap Smear 1984 COVID-19 Vaccine ( season) 2024 08/26/2022, 10/28/2021, 12/11/2020, Additional history exists Colorectal Cancer Screening: Colonoscopy 12/23/2024 Depression Screening 12/23/2024 HIV Screening 12/23/2024 Hepatitis C Screening 12/23/2024 Social Influencers of Health Screening 12/23/2024 Influenza Vaccine (Season Ended) 2025 08/26/2022, 09/18/2021, 07/15/2020, Additional history exists RSV Immunization Adult Patients (1 - 1-dose 75+ series) 2038 Zoster Vaccines Completed 03/13/2019, 12/06/2018 HIB Vaccines Aged Out No longer eligi ble based on patient's age to complete this topic HPV Vaccines Aged Out No longer eligi ble based on patient's age to complete this topic Hepatitis A Vaccines Aged Out No long er eligible based on patient's age to complete this topic Hepatitis B Vaccines Aged Out No long er eligible based on patient's age to complete this topic IPV Vaccines Aged Out No longer eligi ble based on patient's age to complete this topic MMR Vaccines Aged Out No longer eligi ble based on patient's age to complete this topic Meningococcal ACWY Vaccine Aged Out N o longer eligible based on patient's age to complete this topic Meningococcal B Vaccine Aged Out No l onger eligible based on patient's age to complete this topic RSV Immunization Patients Under 20 months Aged Out No longer eligible based on patient's age to complete this topic Varicella Vaccines Aged Out No longer eligible based on patient's age to complete this topic Procedures Procedure Name Priority Date/Time Associated Diagnosis Comments TISSUE EXAM Routine 01/22/2025 8:54 AM EDT Basal cell carcinoma (BCC) of left side of nose [place] ADJ TISS XFER OR REARNG EYELIDS/NOSE/EARS /LIPS DFCT 10.1SQ CM-30.0SQ CM 01/22/2025 8:38 AM EDT Basal cell carcinoma (BCC) of left side of nose Case Notes Frozen section Special Needs 90 minutes with 15 minutes clean up [place] EXCISION MALIGNANT LESION FACE/EARS/EYELIDS /NOSE/LIPS 1.1 - 2.0 CM 01/22/2025 8:38 AM EDT Basal cell carcinoma (BCC) of left side of nose Case Notes Frozen section Special Needs 90 minutes with 15 minutes clean up from Last 3 Months Results * Tissue exam (01/22/2025 8:54 AM EDT) Final Diagnosis Skin, left nasal ala, excision: Nodular basal cell carcinoma Margins uninvolved 01/25/2025 12:55 PM EDT [facility] Comment The frozen section diagnosis is confirmed on permanent sections. 01/25/2025 12:55 PM EDT [facility] Gross Description A. Nose, bcc left nasal ala ink at 12 o clock: Received fresh for frozen section, labeled Ivy Rogers, nose is a 8 x 6 x 3 mm teardrop shaped skin excision with 12 o'clock marked by ink and oriented to diagram. The diagram lists the site as left nasal ala. A 4 mm outlined area is found on the skin surface. The 9-12-3 o'clock half is inked green, the 3-6-9 o'clock half is inked blue, and the 12-3-6 half is over inked red. The specimen is serially sectioned and submitted entirely for frozen section as A1 (4 pieces). A3L 01/25/2025 12:55 PM EDT [facility] Intraoperative Consultation A. Nose, bcc left nasal ala ink at 12 o clock: Basal cell carcinoma, margins uninvolved 01/25/2025 12:55 PM EDT [facility] Disclaimer Unless otherwise specified, all tissue is 10% NB formalin fixed and paraffin embedded. 01/25/2025 12:55 PM EDT [facility] Tissue Nasal structure / Unknown 01/22/2025 8:54 AM EDT 01/22/2025 9:02 AM EDT us Bobo Fernandez DO LAB PATHOLOGY ORDERABLES Fin al Result [facility] [address] [place] [address], from Last 3 Months Insurance [facility] [employer] Care Teams Lapidary Apprentice Relationship Specialty Start Date End Date Jose Lim NP PCP - General Family Medicine 01/21/25
== END 2025-02-16 11:51 | disposition home or self-care (01) ==
LOC: HO.ENCR 11:17
PROVIDERS: PCP Nurse Practitioner Family; Visit Provider Internal Medicine Endocrinology, Diabetes & Metabolism
DX: E27.8 Other specified disorders of adrenal gland (principal)
CPT/HCPCS: 99213

== ENCOUNTER → 2025-02-16 11:16 | Outpatient (BNVA) | payer OTHER, SELFPAY | PROVIDERS: PCP Nurse Practitioner Family; Visit Provider Internal Medicine Endocrinology, Diabetes & Metabolism | DX: E27.8 Other specified disorders of adrenal gland (principal) | CPT/HCPCS: 99212 ==

== ENCOUNTER 2025-03-02 07:15 | Outpatient (REF) | payer OTHER, SELFPAY ==
--- OUTSIDE RECORDS SUMMARY | 2025-03-02 07:17 | XMS_ITS | Clinical Summary ---
Author Organization [facility] [place] [address] Phone Care Team Providers Care Drying Tumbler Operator Name Role Phone Jose Lim NP Primary [...] EDT Office Visit Plastic & Reconstructive Surgery [facility] [address] [facility] [address] [place] [phone] Bobo Fernandez, DO Basal cell carcinoma (BCC) of left side of nose (Primary Dx) 01/22/2025 9:00 AM EDT - 01/22/2025 10:[address] [facility] Main OR [address] [place] [phone] Bobo Fernandez, DO EXCISION LESION LEFT SIDE OF NOSE [57695 (CPT??) +1 more] 01/22/2025 8:24 AM EDT - 01/22/2025 9:40 AM EDT Hospital Encounter [facility] OR [address] [place] [phone] Bobo Fernandez, DO Basal cell carcinoma (BCC) of left side of nose Discharge Disposition: Home or Self Care 12/28/2024 Telephone Breast Care Center [facility] [address] [facility] [address] [place] [phone] Bobo Fernandez DO prior auth (Dr. Fernandez ) 12/25/2024 11:30 AM EST Office Visit Breast Care [address] [place] [address] Bobo Fernandez DO Basal cell [...] carcinoma (BCC) of left side of nose [place] ADJ TISS XFER OR REARNG EYELIDS/NOSE/EARS /LIPS DFCT 10.1SQ CM-30.0SQ CM 01/22/2025 8:38 AM EDT Basal cell carcinoma (BCC) of left side of nose Case Notes Frozen section Special Needs 90 minutes with 15 minutes clean up [place] EXCISION MALIGNANT LESION FACE/EARS/EYELIDS /NOSE/LIPS 1.1 - [...] carcinoma Margins uninvolved 01/25/2025 12:55 PM EDT [facility] Comment The frozen section diagnosis is confirmed on permanent sections. 01/25/2025 12:55 PM EDT [facility] Gross Description A. Nose, bcc left [...] (4 pieces). A3L 01/25/2025 12:55 PM EDT [facility] Intraoperative Consultation A. Nose, bcc left nasal ala ink at 12 o clock: Basal cell carcinoma, margins uninvolved 01/25/2025 12:55 PM EDT [facility] Disclaimer Unless otherwise specified, all tissue is 10% NB formalin fixed and paraffin embedded. 01/25/2025 12:55 PM EDT [facility] Tissue Nasal structure / Unknown 01/22/2025 8:54 AM EDT 01/22/2025 9:02 AM EDT us Bobo Fernandez DO LAB PATHOLOGY ORDERABLES Fin al Result [facility] [address] [place] [address], from Last 3 Months Insurance [facility] PL[facility] Care Teams Drying Tumbler Operator Relationship Specialty Start Date End Date Jose Lim NP PCP - General Family Medicine 01/21/25
[2025-03-02 10:57] LABS: Cortisol Random 10.9 ug/dL
== END 2025-03-02 07:16 | disposition home or self-care (01) ==
LOC: HO.HMGCLDS 07:15
PROVIDERS: PCP Nurse Practitioner Family; Visit Provider Internal Medicine Endocrinology, Diabetes & Metabolism
DX: E27.8 Other specified disorders of adrenal gland (principal)
CPT/HCPCS: 36415; 82533

== ENCOUNTER 2025-03-16 09:22 | Outpatient (AMB) | payer OTHER, SELFPAY ==
--- NOTE | 2025-03-16 09:28 | MHC.OFFVIS ---
Vital Signs 03/16/25 09:29 Height 5 ft 4 in Weight 147 lb 11.355 oz BMI 25.4 BP 106/62 Blood Pressure Location Rt brachial Position Sitting Pulse 70 Pulse Source Pulse Oximeter Pulse Oximetry (%) 96 Oxygen Delivery Method Room Air Intake Visit Reasons: Adrenal mass Intake Note: Patient present today for Adrenal Insufficiency follow up. 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 Accompanied by: Self / Same As Patient Allergies acetaminophen [From Percocet] Allergy (Intermediate, Verified 03/16/25 09:29) Hives chlorhexidine Allergy (Mild, Verified 03/16/25 09:29) Rash oxycodone Adverse Reaction (Intermediate, Verified 03/16/25 09:29) Rash Medication List - Last Reconciled 03/16/25 by Jorge Lea MD aspirin (Ecotrin Low Strength) 81 mg PO DAILY atorvastatin 40 mg PO BEDTIME 90 days clonazepam 0.5 mg PO DAILY PRN 15 days clonidine HCl mg PO docusate sodium 100 mg PO BEDTIME escitalopram oxalate 20 mg PO DAILY gabapentin 200 mg (2 x 100 mg) PO TID 30 days hydrocortisone 20 mg PO DAILY hydrocortisone sod succ (PF) (Solu-Cortef Act-O-Vial (PF)) 100 mg (2 mL) IM DAILY hydroxyzine HCl 25 mg PO TID PRN mesalamine ER (Apriso) 1.5 grams (4 x 0.375 gram) PO DAILY syringe with needle (CareTouch Luer Lock Syringe with needle) As directed trazodone 200 mg PO BEDTIME HPI Comments Details: 59 YO F with who is seen in consultation at the request of PCP for adrenal incidentaloma. Had CT abdomen/pelvis [date] for which revealed 2.7 cm X 2.1 cm left adrenal mass. Prior CT dated 2019 revealed mass was present at same size. Unclear if CT with adrenal protocol MRI was performed to better characterize mass or with a biochemical workup was performed Denies history of spells with headache, flushing, diaphoresis, abdominal pain or diarrhea. Has any weight gain but only 6 lbs , frequent infections, easy bruisability, development of violaceous striae. No History of HTN, No history of anticoagulant use. Denies any weight loss, orthostatic symptoms, hypoglycemia. No history of malignancy or TB. 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 Status post left adrenalectomy by Dr. Colbert in 09/2024. Currently off hydrocortisone 20 mg QD after surgery. Has occasional episodes of dizziness and decreased appetite but this has been chronic due to ulcerative colitis. Repeat a.m. cortisol of hydrocortisone for 24 hours was normal suggesting recovery of the adrenal axis The patient is a 59-year-old female presenting with a history of cortisol withdrawal after ceasing hydrocortisone therapy. She describes experiencing classic withdrawal symptoms including sweating, itching, and increased levels of anxiety and depression soon after stopping the medication. Although these symptoms were temporary and have improved, the onset was about a week ago, coinciding with the withdrawal period after a significant duration of hydrocortisone use for an unspecified condition, exacerbating her emotional distress during this time. She reports persistent insomnia despite prolonged use of trazodone, which she increased to 200 mg, yet she decided to stop given the lack of efficacy. Her insomnia is characterized by difficulty initiating sleep, nocturnal restlessness, and preoccupying thoughts. Post-surgical discomfort persists at the incision site, suggesting possible involvement of underlying nerve or tissue from previous surgery. Additionally, she voices concern over the cost of medications and limitations in her insurance coverage, affecting her management and quality of life. [facility] Medical History (Updated 11/23/24 @ 12:22 by Jose Lim, [facility]) Adrenal adenoma History of GI bleed Osteopenia Personal history of nicotine dependence Adrenal mass Hx of ulcerative colitis Adhesive capsulitis Postmenopause Centrilobular emphysema Intraductal papilloma of left breast Primary insomnia Depression with anxiety Peripheral vascular disease Proctitis HLD (hyperlipidemia) Surgical History History of surgery History of partial adrenalectomy History of colonoscopy History of lumpectomy of left breast History of shoulder surgery History of esophagogastroduodenoscopy (EGD) History of intravascular stent placement Family History Father Cancer of prostate CAD (coronary artery disease) CHF (congestive heart failure) Diabetes mellitus Mother Brain cancer Myocardial infarction Sister Breast cancer Sister Crohn's disease Hepatitis B Brother No problems noted. Brother Cancer of prostate Son No problems noted. Son No problems noted. Daughter No problems noted. Family/Other Substance use disorder Social History (Reviewed 03/16/25 @ 09:30 by FRANCISCO Bernal Housing: House Alcohol intake: never Patient Tobacco Use Status: Former Tobacco user Tobacco use type: Cigarette Cigarettes Per Day: 2 Years Smoked: (onset 15yo, 1-1.5ppd x 34yrs, 40PYH, using vape for past 10yrs) e-Cigarette/Vaping Use: Currently Using Second Hand Smoke Exposure: No service: No Current occupational status: employed Current occupation: right hand dominant Current occupational exposures/hazards: No Cognitive needs: No Hearing needs: No Vision needs: No Physical Exam Vital Signs: BMI result Body Mass Index 25.4 Assessment & Plan Assessment & Plan (1) Adrenal mass: Comment: (stable 2.7 x 2.1 cm left adrenal nodule - 04/22/[address]) Code(s): E27.8 - Other specified disorders of adrenal gland Category: Medical Plan: This is a 59-year-old white female with a history of left adrenal mass present since 2019 stable in size. 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 Status post left adrenalectomy in 09/2024. Currently offhydrocortisone 20 mg q.d. physiologic replacement. Repeat a.m. cortisol off the hydrocortisone indicates the adrenal axis is not recovered Plan is to have the patient discontinue hydrocortisone . At this point, should returned to the care of her primary care provider returned back to endocrinology as needed 1. Cortisol withdrawal syndrome The patient reported cortisol withdrawal symptoms following cessation of hydrocortisone use, which have now largely resolved. I reassured her that such symptoms are typical and transient following withdrawal. She was advised to be aware of signs of adrenal insufficiency and was instructed to use her hydrocortisone emergency kit if severe symptoms manifest. 2. Sleep disorder The patient's prolonged insomnia was discussed, noting the lack of efficacy of high-dose trazodone. We considered a sleep medicine referral for further evaluation, including potential sleep studies. Optimization of sleep hygiene practices was recommended, and follow-up with her primary care physician was advised for ongoing management. 3. Post-surgical pain The patient experiences post-surgical discomfort likely related to previous incision. If symptoms persist or intensify, consultation with the surgeon for further evaluation and management was advised, with consideration of potential underlying nerve or tissue issues. During the consultation, we discussed the nature of cortisol withdrawal symptoms, which the patient has been experiencing following cessation of hydrocortisone. I emphasized that these symptoms commonly resolve with time, and she has indeed begun to feel better. We reviewed her cortisol levels, which have returned to normal, affirming her adrenal function. She retains her hydrocortisone emergency kit with instructions for use should severe symptoms arise. We also touched on the issue of post-surgical pain, recognizing it may involve underlying nerve or tissue irritation. It's important for her to seek further evaluation if pain persists. I encouraged communication with her previous surgeon for assessment and planning if necessary. - Monitor for any unusual symptoms indicating adrenal insufficiency and use hydrocortisone emergency kit if necessary. - Consider optimizing sleep hygiene practices to improve sleep, and discuss with your primary care provider about a referral to sleep medicine for further evaluation. - Report persisting pain at surgical site to the surgeon if it does not improve over time. - Return for follow-up as needed, particularly if symptoms change or worsen. The patient had an opportunity to ask questions regarding treatment plan. The patient expressed understanding and agreement with the above treatment plan. Patient was informed and verbally consented to the use of an ambient scribe for clinic note documentation during this visit. Coding Level of Care Code Est Pt Level 3 (99241) Diagnoses Adrenal mass E27.8
[2025-03-16 09:29] VITALS: BP 106/62; PULSE 70; O2SAT 96; BMI 25.4
--- OUTSIDE RECORDS SUMMARY | 2025-03-16 09:55 | XMS_ITS | Clinical Summary ---
Author Organization [facility] [place] [address] Phone Care Team Providers Care Paper Machine Operator Name Role Phone Jose Lim NP [...] EDT Office Visit Plastic & Reconstructive Surgery [facility] [address] [facility] [address] [place] [phone] Bboo Fernandez, DO Basal cell carcinoma (BCC) of left side of nose (Primary Dx) 01/22/2025 9:00 AM EDT - 01/22/2025 10:45 AM EDT Surgery [facility] Main OR [address] [place] [phone] Bobo Fernandez, DO EXCISION LESION LEFT SIDE OF NOSE [11410 (CPT??) +1 more] 01/22/2025 8:24 AM EDT - 01/22/2025 9:40 AM EDT Hospital Encounter [facility] OR [address] [place] [phone] Bobo Fernandez, DO Basal cell carcinoma (BCC) of left side of nose Discharge Disposition: Home or Self Care 12/28/2024 Telephone Breast Care Center [facility] [address] [facility] [address] [place] [phone] Bobo Fernandez DO prior auth (Dr. Fernandez ) 12/25/2024 11:30 AM EST Office Visit Breast Care [address] [place] [address] Bobo Fernandez DO Basal cell [...] carcinoma (BCC) of left side of nose RI ADJ TISS XFER OR REARNG EYELIDS/NOSE/EARS /LIPS DFCT 10.1SQ CM-30.0SQ CM 01/22/2025 8:38 AM EDT Basal cell carcinoma (BCC) of left side of nose Case Notes Frozen section Special Needs 90 minutes with 15 minutes clean up RI EXCISION MALIGNANT LESION FACE/EARS/EYELIDS /NOSE/LIPS 1.1 - [...] carcinoma Margins uninvolved 01/25/2025 12:[address] [facility] Comment The frozen section diagnosis is confirmed on permanent sections. 01/25/2025 12:[address] [facility] Gross Description A. Nose, bcc [...] (4 pieces). A3L 01/25/2025 12:[address] [facility] Intraoperative Consultation A. Nose, bcc left nasal ala ink at 12 o clock: Basal cell carcinoma, margins uninvolved 01/25/2025 12:[address] [facility] Disclaimer Unless otherwise specified, all tissue is 10% NB formalin fixed and paraffin embedded. 01/25/2025 12:[address] [facility] Tissue Nasal structure / Unknown 01/22/2025 8:54 AM EDT 01/22/2025 9:02 AM EDT us Bobo Fernandez DO LAB PATHOLOGY ORDERABLES Fin al Result [facility] [address] [place] [address], from Last 3 Months Insurance [facility] Care Teams Paper Machine Operator Relationship Specialty Start Date End Date Jose Lim NP PCP - General Family Medicine 01/21/25
== END 2025-03-16 09:46 | disposition home or self-care (01) ==
LOC: HO.ENCR 09:23
PROVIDERS: PCP Nurse Practitioner Family; Visit Provider Internal Medicine Endocrinology, Diabetes & Metabolism
DX: E27.8 Other specified disorders of adrenal gland (principal)
CPT/HCPCS: 99213

== ENCOUNTER → 2025-03-16 09:22 | Outpatient (BNVA) | payer OTHER, SELFPAY | PROVIDERS: PCP Nurse Practitioner Family; Visit Provider Internal Medicine Endocrinology, Diabetes & Metabolism | DX: E27.8 Other specified disorders of adrenal gland (principal) | CPT/HCPCS: 99212 ==

== ENCOUNTER → 2025-03-23 14:07 | Outpatient (BNVA) | payer OTHER, SELFPAY | PROVIDERS: PCP Nurse Practitioner Family; Visit Provider Nurse Practitioner Family | DX: Z13.89 Encounter for screening for other disorder (principal) ==

== ENCOUNTER 2025-03-30 11:11 | Outpatient (AMB) | payer OTHER, SELFPAY ==
[2025-03-30 11:15] VITALS: BP 120/76; PULSE 73; O2SAT 96; BMI 25.1
--- NOTE | 2025-03-30 11:15 | A.OFFPC_ITS ---
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: No Accompanied by: Self / Same As Patient Allergies acetaminophen [From Percocet] Allergy (Intermediate, Verified 03/30/25 11:47) Hives chlorhexidine Allergy (Mild, Verified 03/30/25 11:47) Rash oxycodone Adverse Reaction (Intermediate, Verified 03/30/25 11:47) Rash Medication List - Last Reconciled 03/30/25 by Jose Lim, ENGINEERING PRODUCTION WORKER- aspirin (Ecotrin Low Strength) 81 mg PO DAILY atorvastatin 40 mg PO BEDTIME 90 days clonazepam 0.5 mg PO DAILY PRN 15 days clonidine HCl mg PO docusate sodium 100 mg PO BEDTIME escitalopram oxalate 20 mg PO DAILY hydroxyzine HCl 25 mg PO TID PRN mesalamine ER (Apriso) 1.5 grams (4 x 0.375 gram) PO DAILY syringe with needle (CareTouch Luer Lock Syringe with needle) As directed Tobacco use date assessed: 11/23/24 Dental Screening Dental Screen Date: 11/23/24 HPI follow up HPI Details Chief Complaint History of Present Illness Patient has a history of insomnia. She is working with her psychiatrist. She is currently on clonidine and clonazepam which is not helping. She denies any suicidal ideation or homicidal ideation. She will follow up with her psychiatrist in the near future concerning this. I encouraged her to get labs for me in the near future. Denies any chest pain, shortness of breath, nausea, vomiting. Social History Health Maintenance Review of Systems Physical Exam General: Cooperative, healthy appearing, comfortable, no acute distress and well developed Orientation: Patient oriented x3 Limitations: No limitations Head: Normal to inspection Ears: Hearing grossly normal bilaterally Nose: Normal external nose present Face and sinus: Normal facial exam Eyes: Appearance normal, both eyes and all related structures Neck: Normal visual inspection and Yes full ROM Respiratory: Normal respiratory effort and able to speak in complete sentences. Clear to auscultation bilaterally Cardiovascular: Regular rate and rhythm. Normal S1 and S2 GI: Normal to inspection. Soft to palpation and nontender Skin: No rashes or lesions noted Neuro: Patient oriented x3 Extremities: Normal to inspection Results Plan Discussion Notes She will call her psychiatrist to see what she can do about her insomnia. She reports she will also get her labs in the near future fasting. Patient Instructions [facility] Medical History Adrenal adenoma History of GI bleed Osteopenia Personal history of nicotine dependence Adrenal mass Hx of ulcerative colitis Adhesive capsulitis Postmenopause Centrilobular emphysema Intraductal papilloma of left breast Primary insomnia Depression with anxiety Peripheral vascular disease Proctitis HLD (hyperlipidemia) Surgical History History of surgery History of partial adrenalectomy History of colonoscopy History of lumpectomy of left breast History of shoulder surgery History of esophagogastroduodenoscopy (EGD) History of intravascular stent placement Family History Father Cancer of prostate CAD (coronary artery disease) CHF (congestive heart failure) Diabetes mellitus Mother Brain cancer Myocardial infarction Sister Breast cancer Sister Crohn's disease Hepatitis B Brother No problems noted. Brother Cancer of prostate Son No problems noted. Son No problems noted. Daughter No problems noted. Family/Other Substance use disorder Social History Housing: House Alcohol intake: never Patient Tobacco Use Status: Former Tobacco user Tobacco use type: Cigarette Cigarettes Per Day: 2 Years Smoked: (onset 15yo, 1-1.5ppd x 34yrs, 40PYH, using vape for past 10yrs) e-Cigarette/Vaping Use: Currently Using Second Hand Smoke Exposure: No service: No Current occupational status: employed Current occupation: right hand dominant Current occupational exposures/hazards: No Cognitive needs: No Hearing needs: No Vision needs: No Questionnaire PHQ-9 Over the last 2 weeks, how often have you been bothered by any of the following problems? 1. Little interest or pleasure in doing things: more than half the days 2. Feeling down, depressed, or hopeless: more than half the days 3. Trouble falling or staying asleep, or sleeping too much: nearly every day 4. Feeling tired or having little energy: nearly every day 5. Poor appetite or overeating: more than half the days 6. Feeling bad about yourself - or that you are a failure or have let yourself or your family down: not at all 7. Trouble concentrating on things, such as reading the newspaper or watching television: more than half the days 8. Moving or speaking so slowly that other people could have noticed. Or the opposite - being so fidgety or restless that you have been moving around a lot more than usual: not at all 9. Thoughts that you would be better off or of hurting yourself in some way: not at all Total score: 14 Depression Screening Interpretation: Positive (has a therapist, has a psychiatrist, denies any si or hi.) Depression Screening Follow-up: Existing condition Depression Screening Done: Yes Source: Developed by Drs. Jorge Gonzales, Juani Gerard, Anuel Charles and colleagues, with an educational jennie from [employer]. Thrive Questionnaire Date Thrive assessed: 03/30/25 I am a: Patient What is your living situation today?: I have a steady place to live Within the past 12 months, did the food you bought not last and you didn't have the money to get more?: Never true Within the past 12 months, did you worry whether your food would run out before you got money to buy more?: Never true Do you have trouble paying for medicines?: No Do you have trouble getting transportation to medical appointments?: No Do you have trouble paying your heating and electricity bill?: No Do you have trouble taking care of your child, family member or friend?: No Do you have trouble with day-to-day activities such as bathing, preparing meals, shopping, managing finances, etc.?: No Are you currently unemployed and looking for a job?: I choose not to answer this question Are you interested in more education?: No Please select the resources that you would like help with: None THRIVE Score: 0 AUDIT C Alcohol Use Questionnaire (AUDIT-C) 1. How often do you have a drink containing alcohol?: Monthly or less 2. How many drinks containing alcohol do you have on a typical day when you are drinking?: 1 or 2 3. How often do you have six or more drinks on one occasion?: Never Total Score: 1 Score Reviewed/Action Taken: Yes MARILYNN-7 AMB Questionnaire MARILYNN-7 Date MARILYNN - 7 assessed: 11/23/24 Source: Developed by Drs. Jorge Gonzales, Juani Gerard, Anuel Charles and colleagues, with an educational jennie from [employer]. Physical exam (Primary Care) Vital Signs: Last Vital Signs Pulse 73 03/30/25 11:15 BP 120/76 03/30/25 11:15 Pulse Ox 96 03/30/25 11:15 Oxygen Delivery Method Room Air 03/30/25 11:15 BMI result Body Mass Index 25.1 Tobacco/Smoking Status: Tobacco use Status Tobacco use date assessed 11/23/24 03/30/25 11:17 Patient Tobacco Use Status Former Tobacco user 03/30/25 11:17 Tobacco use type Cigarette 03/30/25 11:17 e-Cigarette/Vaping Use Currently Using 03/30/25 11:17 PHQ-9: PHQ-9 Score PHQ-9: Total score 14 03/30/25 11:17 Depression Screening Interpretation: Positive (has a therapist, has a psychiatrist, denies any si or hi.) Depression Screening Follow-up: Existing condition Thrive Assessment: Date of Thrive Assessment Date Thrive assessed 03/30/25 03/30/25 11:17 Coding Level of Care Code Est Pt Level 3 (85456) Diagnoses Insomnia G47.00 Assessment & Plan Assessment & Plan (1) Insomnia: Code(s): G47.00 - Insomnia, unspecified Category: Medical Plan .
--- OUTSIDE RECORDS SUMMARY | 2025-03-30 13:24 | XMS_ITS | Clinical Summary ---
Author Organization [facility] [place] [address] Phone Care Team Providers Care Timber Treating Tank Operator Name Role Phone Jose Lim NP [...] EDT Office Visit Plastic & Reconstructive Surgery [facility] [address] [facility] [address] [place] [phone] Bobo Fernandez, DO Basal cell carcinoma (BCC) of left side of nose (Primary Dx) 01/22/2025 9:00 AM EDT - 01/22/2025 10:45 AM EDT Surgery [facility] Main OR [address] [place] [phone] Bobo Fernandez, DO EXCISION LESION LEFT SIDE OF NOSE [58520 (CPT??) +1 more] 01/22/2025 8:24 AM EDT - 01/22/2025 9:40 AM EDT Hospital Encounter [facility] OR [address] [place] [phone] Bobo Fernandez, DO Basal cell carcinoma (BCC) of left side of nose Discharge Disposition: Home or Self Care 12/28/2024 Telephone Breast Care Center [facility] [address] [facility] [address] [place] [phone] Bobo Fernandez DO prior auth (Dr. Fernandez ) from Last 3 Months Social History Tobacco [...] carcinoma (BCC) of left side of nose PA ADJ TISS XFER OR REARNG EYELIDS/NOSE/EARS /LIPS DFCT 10.1SQ CM-30.0SQ CM 01/22/2025 8:38 AM EDT Basal cell carcinoma (BCC) of left side of nose Case Notes Frozen section Special Needs 90 minutes with 15 minutes clean up PA EXCISION MALIGNANT LESION FACE/EARS/EYELIDS /NOSE/LIPS 1.1 - [...] carcinoma Margins uninvolved 01/25/2025 12:55 PM EDT [facility] Comment The frozen section diagnosis is confirmed on permanent sections. 01/25/2025 12:55 PM EDT [facility] Gross Description A. Nose, bcc [...] (4 pieces). A3L 01/25/2025 12:55 PM EDT [facility] Intraoperative Consultation A. Nose, bcc left nasal ala ink at 12 o clock: Basal cell carcinoma, margins uninvolved 01/25/2025 12:55 PM EDT [facility] Disclaimer Unless otherwise specified, all tissue is 10% NB formalin fixed and paraffin embedded. 01/25/2025 12:55 PM EDT [facility] Tissue Nasal structure / Unknown 01/22/2025 8:54 AM EDT 01/22/2025 9:02 AM EDT us Bobo Fernandez DO LAB PATHOLOGY ORDERABLES Fin al Result [facility] [address] [place] [address], from Last 3 Months Insurance [facility] Care Teams Timber Treating Tank Operator Relationship Specialty Start Date End Date Jose Lim NP PCP - General Family Medicine 01/21/25
== END 2025-03-30 12:03 | disposition home or self-care (01) ==
LOC: HO.HMCC 11:11
PROVIDERS: PCP Nurse Practitioner Family; Visit Provider Nurse Practitioner Family
DX: G47.00 Insomnia, unspecified (principal)

== ENCOUNTER → 2025-03-30 11:11 | Outpatient (BNVA) | payer OTHER, SELFPAY | PROVIDERS: PCP Nurse Practitioner Family; Visit Provider Nurse Practitioner Family | DX: J43.2 Centrilobular emphysema (principal); G47.00 Insomnia, unspecified; Z79.899 Other long term (current) drug therapy | CPT/HCPCS: 99212 ==

== ENCOUNTER 2025-04-16 07:24 | Outpatient (REF) | payer OTHER, SELFPAY ==
--- OUTSIDE RECORDS SUMMARY | 2025-04-16 07:26 | XMS_ITS | Clinical Summary ---
Author Organization [facility] [place] [address] Phone Care Team Providers Care Flatbed Truck Driver Name Role Phone Jose Lim NP Primary [...] EDT Office Visit Plastic & Reconstructive Surgery [facility] [address] [place] [phone] Bobo Fernandez DO Basal cell carcinoma (BCC) of left side of nose (Primary Dx) 01/22/2025 9:00 AM EDT - 01/22/2025 10:45 AM EDT Surgery [facility] Main OR [address] [place] [phone] Bobo Fernandez DO EXCISION LESION LEFT SIDE OF NOSE [42741 (CPT ) +1 more] 01/22/2025 8:24 AM EDT - 01/22/2025 9:40 AM EDT Hospital Encounter [facility] [place] [address] [place] [phone] Bobo Fernandez DO Basal cell carcinoma (BCC) of left side of nose Discharge Disposition: Home or Self Care from Last 3 Months Social History Tobacco [...] 58 01/22/2025 9:37 AM EDT Temperature 35.7 C (96.3 F) 01/22/2025 9:37 AM EDT Respiratory Rate 18 01/22/2025 9:37 AM EDT [...] carcinoma (BCC) of left side of nose LA ADJ TISS XFER OR REARNG EYELIDS/NOSE/EARS /LIPS DFCT 10.1SQ CM-30.0SQ CM 01/22/2025 8:38 AM EDT Basal cell carcinoma (BCC) of left side of nose Case Notes Frozen section Special Needs 90 minutes with 15 minutes clean up LA EXCISION MALIGNANT LESION FACE/EARS/EYELIDS /NOSE/LIPS 1.1 - [...] carcinoma Margins uninvolved 01/25/2025 12:55 PM [facility] Comment The frozen section diagnosis is confirmed on permanent sections. 01/25/2025 12:55 PM EDT [facility] Gross Description A. Nose, bcc left nasal ala ink at 12 o clock: Received fresh for frozen section, labeled Ivy Rogers, lilo is a 8 x 6 x 3 [...] (4 pieces). A3L 01/25/2025 12:[address] [facility] Intraoperative Consultation A. Nose, bcc left nasal ala ink at 12 o clock: Basal cell carcinoma, margins uninvolved 01/25/2025 12:[address] [facility] Disclaimer Unless otherwise specified, all tissue is 10% NB formalin fixed and paraffin embedded. 01/25/2025 12:[address] [facility] Tissue Nasal structure / Unknown 01/22/2025 8:54 AM EDT 01/22/2025 9:02 AM EDT us Bobo Fernandez DO LAB PATHOLOGY ORDERABLES Fin al Result [facility] [address] [place] [address], from Last 3 Months Insurance [facility] Care Teams Flatbed Truck Driver Relationship Specialty Start Date End Date Jose Lim NP PCP - General Family Medicine 01/21/25
[2025-04-16 10:27] LABS: MANUAL DIFF FLAG NO
[2025-04-16 10:41] LABS: Basophils Percent Auto 0.9 % (0-2); Eosinophils Percent Auto 0.9 % (0-4); Hematocrit 41.9 % (37.0-47.0); Hemoglobin 13.9 g/dl (12.0-16.0); Imm Gran Abs Auto 0.01 X10*3/uL (0.00-0.03); Imm Gran Pct Auto 0.2 % (0.0-0.4); Lymphocytes Absolute Auto 1.7 X10*3/uL (1.2-4.9); Lymphocytes Percent Auto 39.7 % (20-40); Mean Corpuscular HGB Conc 33.2 g/dl (31.0-35.0); Mean Corpuscular Hemoglobin 28.9 pg (27.0-33.0); Mean Corpuscular Volume 87.1 fL (80.0-98.0); Mean Platelet Volume 10.9 fL (9.4-12.3); Monocytes Absolute Auto 0.4 X10*3/uL (0.1-1.2); Monocytes Percent Auto 9.4 % (2-11); Neutrophils Absolute Auto 2.1 x10*3/uL (2.0-8.3); Neutrophils Percent Auto 48.9 % (45-73); Platelet Count 211 X10*3/uL (160-400); Red Blood Count 4.81 X10*6/uL (4.20-5.50); Red Cell Distribution Width 12.7 % (11.0-16.0); White Blood Count 4.3 X10*3/uL (4.8-10.8)
[2025-04-16 10:42] LABS: Appearance Urine Cloudy; Color Urine Yellow; Glucose Urine UA Negative (Negative); Leukocyte Esterase Urine Small (1+) (Negative); Nitrite Urine Negative (Negative); Specific Gravity - Urine >= 1.030 (1.005-1.025); UMIC TRIGGER UACC YES; Urine Blood Trace (Negative); Urine Ketones Negative (Negative); Urine Protein Negative (Neg-Trace)
[2025-04-16 10:53] LABS: Alanine Aminotransferase 28 U/L (0-31); Albumin Level 4.4 g/dL (3.5-5.0); Alkaline Phosphatase 111 U/L (39-117); Anion Gap 12 (12-20); Aspartate Amino Transferase 22 U/L (5-31); Bilirubin Total 0.5 mg/dL (0.0-1.0); Blood Urea Nitrogen 20 mg/dL (9-16); Calcium 9.3 mg/dL (8.4-10.2); Carbon Dioxide 26 mmol/L (22-29); Chloride 108 mmol/L (96-108); Cholesterol 120 mg/dL (<200); Estimated Glomerular Filt Rate > 60; Glucose Fasting 86 mg/dL (60-99); HDL Cholesterol 38 mg/dL (>40); LDL Cholesterol Calculated 67 mg/dL (<100); Potassium 4.7 mmol/L (3.3-5.1); Sodium 141 mmol/L (135-145); Total Protein 6.4 g/dL (6.5-8.0); Triglycerides 77 mg/dL (<150)
[2025-04-16 11:03] LABS: Bacteria Urine Trace (None Seen); RBC Urine 0-2 /HPF (0-2); Squamous Epithelial Cell Urine 0-2 /HPF (0-2); UACC Culture Trigger YES; WBC Urine 0-5 /HPF (0-5)
[2025-04-16 11:21] LABS: TSH reflex Free T4 2.24 uIU/mL (0.32-4.0); Vitamin D 25-OH Total 47.7 ng/mL (>30)
[2025-04-16 11:47] LABS: Hyaline Casts Urine 0-2 /LPF (0-2)
== END 2025-04-16 07:25 | disposition home or self-care (01) ==
LOC: HO.HMGCLDS 07:24
PROVIDERS: PCP Nurse Practitioner Family; Visit Provider Nurse Practitioner Family
DX: Z00.00 Encounter for general adult medical examination without abnormal findings (principal); Z78.0 Asymptomatic menopausal state
CPT/HCPCS: 36415; 80053; 80061; 81001; 82306; 84443; 85025; 87086

== ENCOUNTER 2025-05-12 10:27 | Outpatient (AMB) | payer OTHER, SELFPAY ==
--- NOTE | 2025-05-12 10:29 | MHC.OFFVIS ---
Vital Signs 05/12/25 10:37 Height 5 ft 4 in Weight 146 lb BMI 25.1 BP 124/58 L Blood Pressure Location Rt brachial Position Sitting Pulse 78 Pulse Source Pulse Oximeter Pulse Oximetry (%) 96 Oxygen Delivery Method Room Air Intake Visit Reasons: f/u Abd pain Diarrhea Rectal bleed colitis Intake Note: ESTABLISHED PATIENT for mgmt of IBS + UC. MRI done. Chief Complaint; Pt denies any changes or concerns since last visit. Pt would like to discuss any possible alternatives to mesalamine. Allergies acetaminophen (From Percocet) Allergy (Intermediate, Verified 05/12/25 10:31) Hives chlorhexidine Allergy (Mild, Verified 05/12/25 10:31) Rash oxycodone Adverse Reaction (Intermediate, Verified 05/12/25 10:31) Rash HPI HPI f/u Abd pain Diarrhea Rectal bleed colitis: Details: LAST VISIT: Pancreatic abnormality Abdominal pain Diarrhea Rectal bleed Ulcerative colitis Plan Patient reports that her abdominal pain went away, currently taking mesalamine. Patient will continue taking mesalamine daily. 5 mm nodule of the pancreas seen on CT scan, will send her for MRI. Long discussion with patient about moving her bowels better. She continues to have abdominal bloating. We did discuss diet and being strict about it. Patient should avoid lactose. Patient was told that she should drink milk and eat ice cream due to osteopenia, however patient was encouraged to try lactose free ice cream and dairy. Patient will take Dulcolax daily. Increase fluid intake and activity to promote better bowel motility follow-up in the office in 3-4 months, sooner on as needed basis. She is agreeable to this plan and verbalizes understanding of instructions. She was given the opportunity to ask questions and all questions answered. ? Thank you for allowing me to participate in her care Orders MR abdomen wo/w con Today K86.9 Discontinued omeprazole Discontinued Reason: Doctor's Order 20 mg PO DAILY 30 caps 0RF TODAY'S VISIT Patient is here today for follow-up. Patient reports that since last visit she has been feeling better. She is very strict with her diet. Follows low FODMAP diet. Patient is taking mesalamine 4 tablets. Reports that the tablets are large and she is asking if there is any alternative. Patient denies any melena, hematochezia, unintentional weight loss or ribbon like stools. Patient denies any dyspepsia, dysphagia or odynophagia. Patient reports that she is moving her bowels well. Occasionally will take stool softeners as needed. Patient is reporting that she is drinking plenty fluids. Denies dyspepsia, dysphagia or odynophagia. Denies any acid reflux. Good appetite. Denies any nausea or vomiting. [facility] Medical History (Updated 05/12/25 @ 20:12 by Ciera Gonzales, [facility]) Adrenal adenoma History of GI bleed Osteopenia Personal history of nicotine dependence Adrenal mass Hx of ulcerative colitis Adhesive capsulitis Postmenopause Centrilobular emphysema Intraductal papilloma of left breast Primary insomnia Depression with anxiety Peripheral vascular disease Proctitis HLD (hyperlipidemia) Surgical History History of surgery History of partial adrenalectomy History of colonoscopy History of lumpectomy of left breast History of shoulder surgery History of esophagogastroduodenoscopy (EGD) History of intravascular stent placement Family History Father Cancer of prostate CAD (coronary artery disease) CHF (congestive heart failure) Diabetes mellitus Mother Brain cancer Myocardial infarction Sister Breast cancer Sister Crohn's disease Hepatitis B Brother No problems noted. Brother Cancer of prostate Son No problems noted. Son No problems noted. Daughter No problems noted. Family/Other Substance use disorder Social History Housing: House Alcohol intake: never Patient Tobacco Use Status: Former Tobacco user Tobacco use type: Cigarette Cigarettes Per Day: 2 Years Smoked: (onset 15yo, 1-1.5ppd x 34yrs, 40PYH, using vape for past 10yrs) e-Cigarette/Vaping Use: Currently Using Second Hand Smoke Exposure: No service: No Current occupational status: employed Current occupation: right hand dominant Current occupational exposures/hazards: No Cognitive needs: No Hearing needs: No Vision needs: No Review of Systems Const Denies weight gain and Denies weight loss ENT Reports no additional complaints, Denies dysphagia and Denies odynophagia Card Reports no additional complaints Resp Reports no additional complaints GI Denies abdominal pain, Denies belching, Denies melena, Reports bloating (Occasional), Denies change in bowel habits, Reports constipation (Occasional), Denies dysphagia, Denies excessive flatus, Denies dyspepsia, Denies heartburn, Denies diarrhea, Denies loose stools, Denies nausea, Denies odynophagia and Denies vomiting Reports no additional complaints Musc Reports no additional complaints Neuro Reports no additional complaints Psych Reports no additional complaints Endo Reports no additional complaints Physical Exam Vital Signs: Last Vital Signs Pulse 78 05/12/25 10:37 BP 124/58 L 05/12/25 10:37 Pulse Ox 96 05/12/25 10:37 Oxygen Delivery Method Room Air 05/12/25 10:37 BMI result Body Mass Index 25.1 Const General: healthy appearing, no acute distress and well developed Nutritional Appearance: well nourished Orientation/consciousness: patient oriented x3 Resp Effort & Inspection: normal respiratory effort, able to speak in complete sentences, no tracheal deviation and symmetric chest movement Auscultation: clear to auscultation bilaterally Cardio Rate: regular rate GI Inspection: Yes normal to inspection and No distended Palpation (GI): Soft to palpation, not firm, nontender and No hepatosplenomegaly present Auscultation: normal bowel sounds General: Yes no CVA tenderness Back/Spine/Pelvis Back: no CVA tenderness Skin General skin exam: elasticity normal, turgor normal and dry skin Neuro General: patient oriented x3 Psych Appearance: grossly normal Mental Status: mental status grossly normal Results Reviewed Results Reviewed: MRI OF ABDOMEN 10/08/2024 FINDINGS: LUNG BASES: No pleural or pericardial effusion. LIVER, GALLBLADDER, AND BILIARY TREE: The liver is normal in signal and morphology. No focal hepatic lesion or biliary ductal dilatation is present. The common duct measures 5 mm at the broderick hepatis and tapers distally. No intraductal filling defects. The gallbladder is unremarkable with no evidence of gallbladder wall thickening, or obvious pericholecystic inflammatory changes. PANCREAS: 5 mm cystic lesion in the head of the pancreas. No postcontrast enhancement. Ductal communication cannot be established. No dilatation of the main pancreatic duct. No peripancreatic stranding. SPLEEN: Not enlarged. ADRENAL GLANDS: 2.6 x 2.0 cm left adrenal mass. The adrenal washout calculator is consistent with the presence of a lipid rich adenoma. Unremarkable right adrenal gland. KIDNEYS AND URETERS: The kidneys are normal in size, shape, and enhance symmetrically. No hydronephrosis. No perinephric stranding. GASTROINTESTINAL TRACT: No bowel obstruction. No ascites or fluid collection. LYMPH NODES: No bulky lymphadenopathy. VASCULAR: Normal caliber abdominal aorta. MR/MR abdomen wo/w con IMPRESSION: 5 mm cystic lesion in the head of the pancreas. No postcontrast enhancement. Follow-up imaging in one year is recommended. 2.6 x 2.0 cm left adrenal adenoma. There has been stability since June 08, 2019. Assessment & Plan Assessment & Plan (1) Pancreatic abnormality: Code(s): Q45.3 - Other congenital malformations of pancreas and pancreatic duct Category: Medical (2) Constipation: Code(s): K59.00 - Constipation, unspecified Category: Medical Qualifiers: Constipation type: chronic idiopathic constipation Qualified Code(s): K59.04 - Chronic idiopathic constipation (3) IBS (irritable bowel syndrome): Code(s): K58.9 - Irritable bowel syndrome, unspecified Category: Medical Qualifiers: Irritable bowel syndrome type: with constipation Qualified Code(s): K58.1 - Irritable bowel syndrome with constipation (4) Mucus in stool: Code(s): R19.5 - Other fecal abnormalities Category: Medical (5) Hx of ulcerative colitis: Comment: past Code(s): Z87.19 - Personal history of other diseases of the digestive system Category: Medical Plan Patient will continue her low FODMAP diet. Increase fluid intake and activity to promote better bowel motility. Patient will continue mesalamine will change the brand. Patient can start taking Lialda. Avoid dietary triggers in late night snacking. Staying upright for minimum 3 hours after meals discussed with patient. Patient will follow-up in 6 months, sooner on as needed basis. She is agreeable to this plan and verbalizes understanding of instructions. She was given the opportunity to ask questions and all questions answered. Thank you for allowing me to participate in her care Medications: New mesalamine (Lialda) 2.4 grams (2 x 1.2 gram) PO DAILY 60 tabs 4RF K50.90 - Crohn's disease, unspecified, without complications Discontinued mesalamine ER (Apriso) Discontinued Reason: Doctor's Order 1.5 grams (4 x 0.375 gram) PO DAILY 120 caps 2RF Coding Level of Care Code Est Pt Level 4 (35650) Complex EM visit Add On G2211 Diagnoses Pancreatic abnormality Q45.3 Chronic idiopathic constipation K59.04 Constipation type: chronic idiopathic constipation Irritable bowel syndrome with constipation K58.1 Irritable bowel syndrome type: with constipation Mucus in stool R19.5 Hx of ulcerative colitis Z87.19 Time Spent (min) 35 Comment 25 minutes spent with patient and additional 10 minutes spent reviewing her records
[2025-05-12 10:37] VITALS: BP 124/58; PULSE 78; O2SAT 96; BMI 25.1
--- OUTSIDE RECORDS SUMMARY | 2025-05-12 11:34 | XMS_ITS | Clinical Summary ---
Author Organization [facility] [place] [address] Phone Care Team Providers Care Scroll Saw Operator Name Role Phone Jose Lim NP [...] (BCC) of left side of nose 12/25/2024 Social History Tobacco Use Types Packs/Day Years [...] Years (1 of 2 - PCV) 1982 Cervical Cancer Screening: Pap Smear 1984 COVID-19 Vaccine ( - season) 2024 08/26/2022, 10/28/2021, 12/11/2020, Additional history exists Depression Screening 10/21/2024 Colorectal Cancer Screening: Colonoscopy 12/23/2024 HIV Screening 12/23/2024 Hepatitis C Screening 12/23/2024 Social Influencers of Health Screening 12/23/2024 Influenza Vaccine (#1) 2025 , 09/18/2021, 07/15/2020, Additional history exists RSV Immunization [...] on patient's age to complete this topic Insurance [facility] Care Teams Scroll Saw Operator Relationship Specialty Start Date End Date Jose Lim NP PCP - General Family Medicine 01/21/25
--- OUTSIDE RECORDS SUMMARY | 2025-05-12 11:34 | XMS_ITS | Encounter Summary ---
Author Organization [facility] Address [address] [place] [phone] Phone Care Team Providers Care Graphic Coordinator Name Role Phone Shania Kaur MD Primary Care Provider Encounter Details Date Type Department Care Team (Late st Contact Info) Description 04/06/2020 Procedure Pass [facility] [address] [place] [address] Social History Tobacco Use Types Packs/Day Years Used Date Smoking Tobacco: Former Cigarettes 1 35 Smokeless Tobacco: Never Alcohol Use Standard Drinks/Week Comments Never 0 (1 standard drink = 0.6 oz pur e alcohol) Comments Unknown Sex and Gender Information Value Date Recorded Sex Assigned at Not on file Legal Sex Female 12:39 PM EDT Gender Identity Not on file Sexual Orientation Not on file documented as of this encounter Plan of Treatment Not on file documented as of this encounter Visit Diagnoses Not on filedocumented in this encounter Care Teams Graphic Coordinator Relationship Specialty Start Date End Date Shania Kaur MD [facility] [address] [address] PCP - General Internal Medicine 03/24/20 documented as of this encounter Additional Source Comments The information contained in this document represents components of the legal health record. It is not the complete legal health record.[facility]
== END 2025-05-12 10:59 | disposition home or self-care (01) ==
LOC: HO.HGI 10:28
PROVIDERS: PCP Nurse Practitioner Family; Visit Provider Nurse Practitioner Family
DX: Q45.3 Other congenital malformations of pancreas and pancreatic duct (principal); K59.04 Chronic idiopathic constipation; K58.1 Irritable bowel syndrome with constipation; R19.5 Other fecal abnormalities; Z87.19 Personal history of other diseases of the digestive system
CPT/HCPCS: 99214; G2211

== ENCOUNTER → 2025-05-12 10:27 | Outpatient (BNVA) | payer OTHER, SELFPAY | PROVIDERS: PCP Nurse Practitioner Family; Visit Provider Nurse Practitioner Family | DX: Q45.3 Other congenital malformations of pancreas and pancreatic duct (principal); K59.04 Chronic idiopathic constipation; K58.1 Irritable bowel syndrome with constipation; R19.5 Other fecal abnormalities; Z87.19 Personal history of other diseases of the digestive system | CPT/HCPCS: 99212 ==

== ENCOUNTER 2025-07-01 14:48 | Outpatient (AMB) | payer OTHER, SELFPAY ==
--- NOTE | 2025-07-01 14:59 | A.OFFPC_ITS ---
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 Required: No Accompanied by: Self / Same As Patient Allergies acetaminophen (From Percocet) Allergy (Intermediate, Verified 07/01/25 15:25) Hives chlorhexidine Allergy (Mild, Verified 07/01/25 15:25) Rash oxycodone Adverse Reaction (Intermediate, Verified 07/01/25 15:25) Rash Medication List - Last Reconciled 07/01/25 by GOVIND Villa- aspirin (Ecotrin Low Strength) 81 mg PO DAILY clonazepam 1 mg PO BEDTIME PRN docusate sodium 100 mg PO BEDTIME escitalopram oxalate 20 mg PO DAILY hydroxyzine HCl 25 mg PO TID PRN syringe with needle (CareTouch Luer Lock Syringe with needle) As directed Tobacco use date assessed: 07/01/25 Dental Screening Dental Screen Date: 07/01/25 Did you have a dental visit in the last 12 months?: Yes Did you have a dental problem in the last 6 months where you did not have access to dental care?: No Was dental information given to patient?: Patient has dentist HPI PE HPI Details History of Present Illness The patient is a 60-year-old female presenting for a physical exam and preventative care. She denies experiencing any fevers, chills, chest pain, shortness of breath, a bdominal pain, blood in stool, constipation, diarrhea, suicidal ideation, or homicidal ideation. The patient is due for a repeat colon cancer screening but wishes to delay this procedure. A mammogram has already been scheduled, and she is part of a low dose CT scan program. She has been advised to follow up with her adjunct latin professor regarding a small, clear, slightly papillary lesion on the tip of her nose. pt has a psychiatrist and therapist she sees regularly Health Maintenance - Colon cancer screening: Patient is due for a repeat screening but wishes to delay. - Mammogram: Scheduled as part of routin e preventative care. - Low dose CT scan program: Patient is e nrolled. Social History Review of Systems - General: Denies fevers, chills. - Cardiovascular: Denies chest pain. - Respiratory: Denies shortness of breat h. - Gastrointestinal: Denies abdominal aliyah n, blood in stool, constipation, diarrhea. - Psychiatric: Denies suicidal ideation, homicidal ideation. Physical Exam General: Cooperative, healthy appearing, comfortable, no acute distress and well developed Orientation: Patient oriented x3 Limitations: No limitations Head: Normal to inspection Ears: Hearing grossly normal bilaterally Nose: Small, clear, slightly papillary lesion to the tip of the nose Face and sinus: Normal facial exam Eyes: Appearance normal, both eyes and all related structures Neck: Normal visual inspection and Yes full ROM Respiratory: Normal respiratory effort and able to speak in complete sentences. Clear to auscultation bilaterally Cardiovascular: Regular rate and rhythm. Normal S1 and S2 GI: Normal to inspection. Soft to palpation and nontender Skin: small papular lesion (skin colored) to tip of nose Neuro: Patient oriented x3 Extremities: Normal to inspection Plan 1. Papillary Lesion On The Nose The patient has been advised to follow up with her adjunct latin professor for evaluation and management of the papillary lesion on her nose. 2. Preventative Care: Colon Cancer Radha myrick The patient is due for a repeat colon cancer screening but has expressed a desire to delay the procedure at this time. 3. Preventative Care: Mammogram A mammogram has been scheduled as part of the patient's routine preventative care. 4. Preventative Care: Low Dose Ct Scan P emily The patient is enrolled in a low dose CT scan program for ongoing monitoring. Discussion Notes I discussed with the patient the importance of following up with her adjunct latin professor regarding the papillary lesion on her nose. We also reviewed her preventative care schedule, including the upcoming mammogram and her participation in the low dose CT scan program. The patient is aware of the need for a repeat colon cancer screening but has chosen to delay it for now. Patient Instructions - Follow up with your adjunct latin professor jessica rding the lesion on your nose. - Attend your scheduled mammogram appoin tment. - Continue participation in the low dose CT scan program. - Consider scheduling your repeat colon cancer screening when ready. [facility] Medical History Adrenal adenoma History of GI bleed Osteopenia Personal history of nicotine dependence Adrenal mass Hx of ulcerative colitis Adhesive capsulitis Postmenopause Centrilobular emphysema Intraductal papilloma of left breast Primary insomnia Depression with anxiety Peripheral vascular disease Proctitis HLD (hyperlipidemia) Surgical History History of surgery History of partial adrenalectomy History of colonoscopy History of lumpectomy of left breast History of shoulder surgery History of esophagogastroduodenoscopy (EGD) History of intravascular stent placement Family History Father Cancer of prostate CAD (coronary artery disease) CHF (congestive heart failure) Diabetes mellitus Mother Brain cancer Myocardial infarction Sister Breast cancer Sister Crohn's disease Hepatitis B Brother No problems noted. Brother Cancer of prostate Son No problems noted. Son No problems noted. Daughter No problems noted. Family/Other Substance use disorder Social History Housing: House Alcohol intake: never Patient Tobacco Use Status: Former Tobacco user Tobacco use type: Cigarette Cigarettes Per Day: 2 Years Smoked: (onset 15yo, 1-1.5ppd x 34yrs, 40PYH, using vape for past 10yrs) e-Cigarette/Vaping Use: Currently Using Second Hand Smoke Exposure: No service: No Current occupational status: employed Current occupation: right hand dominant Current occupational exposures/hazards: No Cognitive needs: No Hearing needs: No Vision needs: No Questionnaire PHQ-9 Over the last 2 weeks, how often have you been bothered by any of the following problems? 1. Little interest or pleasure in doing things: not at all 2. Feeling down, depressed, or hopeless: not at all 3. Trouble falling or staying asleep, or sleeping too much: not at all 4. Feeling tired or having little energy: not at all 5. Poor appetite or overeating: not at all 6. Feeling bad about yourself - or that you are a failure or have let yourself or your family down: not at all 7. Trouble concentrating on things, such as reading the newspaper or watching television: not at all 8. Moving or speaking so slowly that other people could have noticed. Or the opposite - being so fidgety or restless that you have been moving around a lot more than usual: not at all 9. Thoughts that you would be better off or of hurting yourself in some way: not at all Total score: 0 Depression Screening Interpretation: Negative Depression Screening Done: Yes 66393 - PHQ-9 Billing: Yes Source: Developed by Drs. Jorge Gonzales, Juani Gerard, Anuel Charles and colleagues, with an educational jennie from [employer]. Thrive Questionnaire Date Thrive assessed: 11/16/24 I am a: Patient What is your living situation today?: I have a steady place to live Within the past 12 months, did the food you bought not last and you didn't have the money to get more?: Never true Within the past 12 months, did you worry whether your food would run out before you got money to buy more?: Never true Do you have trouble paying for medicines?: No Do you have trouble getting transportation to medical appointments?: No Do you have trouble paying your heating and electricity bill?: No Do you have trouble taking care of your child, family member or friend?: No Do you have trouble with day-to-day activities such as bathing, preparing meals, shopping, managing finances, etc.?: No Are you currently unemployed and looking for a job?: I choose not to answer this question Are you interested in more education?: No Please select the resources that you would like help with: None THRIVE Score: 0 MARILYNN-7 AMB Questionnaire MARILYNN-7 Date MARILYNN - 7 assessed: 11/23/24 Feeling nervous, anxious, or on edge: 0 = Not at all Not being able to stop or control worryin = Not at all Worrying too much about different things: 0 = Not at all Trouble relaxin = Not at all Being so restless that it is hard to sit still: 0 = Not at all Becoming easily annoyed or irritable: 0 = Not at all Feeling afraid as if something awful might happen: 0 = Not at all Total MARILYNN-7 score (0-4 normal; 5-9 mild; 10-14 moderate; 15-21 severe): 0 Source: Developed by Drs. Jorge Gonzales, Juani Gerard, Anuel Charles and colleagues, with an educational jennie from [employer]. MARILYNN-7 Assessment Billing MARILYNN-7 Assessment Tool: MARILYNN-7 Assessment 57726 Physical exam (Primary Care) Vital Signs: Last Vital Signs Temp 98.4 F 07/01/25 15:01 Pulse 73 07/01/25 15:01 BP 124/68 07/01/25 15:01 Pulse Ox 95 07/01/25 15:01 Oxygen Delivery Method Room Air 07/01/25 15:01 BMI result Body Mass Index 24.5 Tobacco/Smoking Status: Tobacco use Status Tobacco use date assessed 07/01/25 07/01/25 15:00 Patient Tobacco Use Status Former Tobacco user 07/01/25 15:00 Tobacco use type Cigarette 07/01/25 15:00 e-Cigarette/Vaping Use Currently Using 07/01/25 15:00 PHQ-9: PHQ-9 Score PHQ-9: Total score 0 07/01/25 15:48 Depression Screening Interpretation: Negative Thrive Assessment: Date of Thrive Assessment Date Thrive assessed 11/16/24 07/01/25 15:00 Coding Level of Care Code Est Pt Prev Care 40-64y(30410) Diagnoses Physical exam Z00. Osteopenia M85.80 Additional Codes MARILYNN-7 Assessment Billing - MARILYNN-7 Assessment Tool: MARILYNN-7 Assessment 20229 ([id number]) PHQ-9 - 74480 - PHQ-9 Billing: Yes ([id number]) Assessment & Plan Assessment & Plan (1) Physical exam: Code(s): Z00.00 - Encounter for general adult medical examination without abnormal findings Category: Medical (2) Osteopenia: Comment: (Bone Dexa Femoral T-score: -2.3 - 07/28/24) Code(s): M85.80 - Other specified disorders of bone density and structure, unspecified site Category: Medical Plan . Orders: Orders Comprehensive [place]. Panel Fast Today Z00.00 - Encounter for general adult medical examination without abnormal findings TSH reflex Free T4 Today Z00.00 - Encounter for general adult medical examination without abnormal findings Lipid Panel Today Z00.00 - Encounter for general adult medical examination without abnormal findings Complete Blood Count Auto Diff Today Z00.00 - Encounter for general adult medical examination without abnormal findings UA CC w/rflx Micro + Cult Today Z00.00 - Encounter for general adult medical examination without abnormal findings Vitamin D 25-OH Total Today M85.80 - Other specified disorders of bone density and structure, unspecified site MM screening mammo BI Today Z12.31 - Encounter for screening mammogram for malignant neoplasm of breast
[2025-07-01 15:01] VITALS: BP 124/68; PULSE 73; TEMP 36.9; O2SAT 95; BMI 24.5
--- OUTSIDE RECORDS SUMMARY | 2025-07-01 18:20 | XMS_ITS | Encounter Summary ---
Author Organization [facility] Address [address] [facility] [address] [place] [address] Phone Care Team Providers Care As400 Administrator Name Role Phone Shania Kaur MD Primary Care Provider Encounter Details Date Type Department Care Team (Late st Contact Info) Description 04/06/2020 Procedure Pass [facility]iology [address] [place] [address] Social History Tobacco Use Types Packs/Day Years [...] on filedocumented in this encounter Care Teams As400 Administrator Relationship Specialty Start Date End Date Shania Kaur MD [facility] [address] [place] [address] PCP - General Internal Medicine 03/24/20 documented as of this encounter Additional Source Comments The information contained in this document represents components of the legal health record. It is not the complete legal health record.[facility]
--- OUTSIDE RECORDS SUMMARY | 2025-07-01 18:20 | XMS_ITS | Clinical Summary ---
Author Organization [facility] Address [address] [address] Phone Care Team Providers Care Pump Mechanic Name Role Phone Shania Kaur MD Primary Care Provider Allergies Active Allergy Reactions Criticality Noted Date Comments Other Maculopapular Rash High 03/30/2020 chloraprep Medications atorvastatin (LIPITOR) 40 MG tablet Take 40 mg by mouth daily. Active clonazePAM (KLONOPIN) 0.5 MG disintegrating tablet Take 0.5 mg by mouth 2 (two) times a day as needed for anxiety. Active PARoxetine (PAXIL) 40 MG tablet Take 40 mg by mouth every morning. Active lactobacillus rhamnosus GG-inulin (CULTURELLE PROBIOTIC) 10 billion cell -200 mg CpSP Take 200 mg by mouth daily. Active simethicone (GAS-X EXTRA STRENGTH ORAL) Take by mouth. Active dicyclomine (BENTYL) 10 MG capsule Take 20 mg by mouth 2 (two) times a day. Active aspirin 81 MG EC tablet Take 81 mg by mouth daily. Active traZODone (DESYREL) 150 MG tablet Take 150 mg by mouth nightly at bedtime. Active clopidogrel (PLAVIX) 75 mg tablet Take 1 tablet (75 mg total) by mouth daily. 30 tablet 3 0 Active Social History Tobacco Use Types Packs/Day Years Used Date Smoking Tobacco: Former Cigarettes 1 35 Smokeless Tobacco: Never Alcohol Use Standard Drinks/Week Comments Never 0 (1 standard drink = 0.6 oz pur e alcohol) Education Answer Date Recorded Are you interested in more education? Not on magen e 02/15/2023 Are you concerned about learning? Not on file 02/15/2023 No 02/15/2023 No 02/15/2023 Digital Access Answer Date Recorded No 03/16/2023 No 03/16/2023 No 03/16/2023 Reliable internet access at home? Not on file 03/16/2023 Device with a working camera? Not on file Comments Unknown Sex and Gender Information Value Date Recorded Sex Assigned at Not on file Legal Sex Female 12:39 PM EDT Gender Identity Not on file Sexual Orientation Not on file Last Filed Vital Signs Vital Sign Reading Time Taken Comments Blood Pressure 118/56 04/06/2020 1:10 PM EDT Pulse 68 04/06/2020 7:05 AM EDT Temperature 36.5 C (97.7 F) 04/06/2020 1:10 PM EDT Respiratory Rate 16 04/06/2020 1:10 PM EDT Oxygen Saturation 97% 04/06/2020 1:10 PM EDT Inhaled Oxygen Concentration - - Weight 73.5 kg (162 lb) 04/06/2020 7:01 AM EDT Height 162.6 cm (5' 4.02 ) 04/06/2020 7:01 AM ED T Body Mass Index 27.79 04/06/2020 7:01 AM EDT Plan of Treatment Health Maintenance Due Date Last Done Comments Adult Td,Tdap Booster 1963 LIPID PANEL 1963 DEPRESSION SCREENING 1975 SMOKING Hx and SMOKELESS TOBACCO SCREENING 1976 HEPATITIS C SCREENING 1981 HIV ONE-TIME SCREENING (18-6 5 YEARS) 1981 PAP SMEAR 1984 MAMMOGRAM 2003 COLOGUARD 2008 COLONOSCOPY 2008 COLORECTAL CANCER SCREENING 2008 FIT TEST 2008 FOBT 2008 SIGMOIDOSCOPY 2008 VIRTUAL COLONOSCOPY 2008 PNEUMOCOCCAL VACCINES (50+ years) (1 of 1 - PCV) 2013 INFLUENZA VACCINE (#1) 2025 , 09/07/2019, 09/03/2018 COVID-19 VACCINE (3 - 2024-2 6 season) 2025 12/11/2020, 11/20/2020 RSV VACCINE (1 - 1-dose 75+ series) 2038 ZOSTER VACCINES Completed 03/13/2019, 12/06/2018 HEPATITIS A VACCINES Aged Out No long er eligible based on patient's age to complete this topic HIB VACCINES Aged Out No longer eligi ble based on patient's age to complete this topic MENINGOCOCCAL VACCINES (ACWY) Aged Out No longer eligible based on patient's age to complete this topic MENINGOCOCCAL VACCINES (B) Aged Out N o longer eligible based on patient's age to complete this topic Medical Devices Implanted Type Area Supervisor Print Line Device Identifier Shelf Expiration Date Model / Serial / Lot Clip-03/06/2013 Implanted:02/18 (Quantity not on file) Clip Left: Breast Stent Covered Vascular Expandable Balloon Lifestream [id number] 80cm Shaft Length - Uom Issue Use Ps # [id number] - [id number] Implanted:Qty: 1 on 04/06/2020 by Guzman Sims MD at [facility] [employer] [id number] 04/19/2021 [id number] / / [id number] Stent Covered Vascular Expandable Balloon Lifestream [id number] 80cm Shaft Length - Uom Issue Use Ps # [id number] - [id number] Implanted:Qty: 1 on 04/06/2020 by Guzman Sims MD at [facility] [employer] [id number] 04/19/2021 [id number] / / [id number] [place] [id number] [employer] PPO [place] [id number] CIGNA CARELINK PPO Advance Directives For more information, please contact: [phone] (9AM - 5PM [facility], Saturday-Saturday) * No Code Status (Latest Code Status on File) Date Activated Date Inactivated Comments 04/06/2020 10:40 AM Code Status: Full Code (Confirmed) * Full Code (Confirmed) Date Activated Date Inactivated Comments 04/06/2020 6:40 AM 04/06/2020 10:40 AM Question Answer Comments Code Status Confirmed With: Other (specify below ) Code Status Communicated To: Other (specify belo w) Code Discussion Comments: pre op order sheet Care Teams Pump Mechanic Relationship Specialty Start Date End Date Shania Kaur MD [address] [place] [address] PCP - General Internal Medicine 03/24/20 Additional Source Comments The information contained in this document represents components of the legal health record. It is not the complete legal health record.[facility]
== END 2025-07-01 15:42 | disposition home or self-care (01) ==
LOC: HO.HMCC 14:48
PROVIDERS: PCP Nurse Practitioner Family; Visit Provider Nurse Practitioner Family
DX: Z00.00 Encounter for general adult medical examination without abnormal findings (principal); M85.80 Other specified disorders of bone density and structure, unspecified site

== ENCOUNTER → 2025-07-01 14:48 | Outpatient (BNVA) | payer OTHER, SELFPAY | PROVIDERS: PCP Nurse Practitioner Family; Visit Provider Nurse Practitioner Family | DX: Z00.00 Encounter for general adult medical examination without abnormal findings (principal); M85.80 Other specified disorders of bone density and structure, unspecified site; L98.9 Disorder of the skin and subcutaneous tissue, unspecified; Z13.31 Encounter for screening for depression | CPT/HCPCS: 96127; 99396 ==

== ENCOUNTER 2025-07-21 07:35 | Outpatient (REF) | payer OTHER, SELFPAY ==
--- OUTSIDE RECORDS SUMMARY | 2025-07-21 07:38 | XMS_ITS | Clinical Summary ---
Author Organization [facility] [place] [address] Phone Care Team Providers Care Business Services Administrator Name Role Phone Jose Lim NP Primary [...] DTaP,Tdap,and Td Vaccines (1 - Tdap) 1982 Cervical Cancer Screening: Pap Smear 1984 Pneumococcal Vaccine: 50+ Years (1 of 1 - PCV) 2013 Depression Screening 10/21/2024 Colorectal Cancer Screening: Colonoscopy 12/23/2024 HIV Screening 12/23/2024 Hepatitis C Screening 12/23/2024 Social Influencers of Health Screening 12/23/2024 COVID-19 Vaccine ( season) 2025 08/26/2022, 10/28/2021, 12/11/2020, Additional history exists Influenza Vaccine (#1) 2025 , 09/18/2021, 07/15/2020, [...] patient's age to complete this topic Insurance [facility] Care Teams Business Services Administrator Relationship Specialty Start Date End Date Jose Lim NP PCP - General Family Medicine 01/21/25
--- OUTSIDE RECORDS SUMMARY | 2025-07-21 07:38 | XMS_ITS | Clinical Summary ---
Author Organization [facility] Address [address] [address] Phone Care Team Providers Care Turkey Cleaner Name Role Phone Shania Kaur MD Primary [...] this topic Medical Devices Implanted Type Area Hospice/Home Health Aide Device Identifier Shelf Expiration Date Model / Serial / Lot Clip-03/06/2013 Implanted:02/18 (Quantity not on file) Clip Left: Breast Stent Covered Vascular Expandable Balloon Lifestream [id number] 80cm Shaft Length - Uom Issue Use Ps # [id number] - [id number] Implanted:Qty: 1 on 04/06/2020 by Guzman Sims MD at [facility] [employer] [id number] 04/19/2021 [id number] / / [id number] Stent Covered Vascular Expandable Balloon Lifestream [id number] 80cm Shaft Length - Uom Issue Use Ps # [id number] - [id number] Implanted:Qty: 1 on 04/06/2020 by Guzman Sims MD at [facility] [employer] [id number] 04/19/2021 [id number] / / [id number] [place] [address] [employer] PPO [place] [id number] CIGNA CARELINK PPO Advance Directives For more information, please contact: [phone] (9AM - 5PM [facility], Saturday-Saturday) * No Code Status (Latest Code [...] Comments: pre op order sheet Care Teams Turkey Cleaner Relationship Specialty Start Date End Date Shania Kaur MD [address] [facility] [place] [address] PCP - General Internal Medicine 03/24/20 Additional Source Comments The information contained in this document represents components of the legal health record. It is not the complete legal health record.[facility]
--- OUTSIDE RECORDS SUMMARY | 2025-07-21 07:38 | XMS_ITS | Encounter Summary ---
Author Organization [facility] Address [address] [facility] [address] [place] [address] Phone Care Team Providers Care Sandblaster Glass Name Role Phone Shania Kaur MD Primary Care Provider Encounter Details Date Type Department Care Team (Late st Contact Info) Description 04/06/2020 Procedure Pass [facility] Cardiovascular [facility] Interventional Radiology [address] [place] [address] Social History Tobacco Use Types Packs/Day Years [...] on filedocumented in this encounter Care Teams Sandblaster Glass Relationship Specialty Start Date End Date Shania Kaur MD [facility] [address] [place] [address] PCP - General Internal Medicine 03/24/20 documented as of this encounter Additional Source Comments The information contained in this document represents components of the legal health record. It is not the complete legal health record.[facility]
[2025-07-21 10:05] LABS: MANUAL DIFF FLAG NO
[2025-07-21 10:08] LABS: Hematocrit 41.8 % (37.0-47.0); Hemoglobin 14.3 g/dl (12.0-16.0); Imm Gran Abs Auto 0.01 X10*3/uL (0.00-0.03); Imm Gran Pct Auto 0.2 % (0.0-0.4); Lymphocytes Absolute Auto 1.8 X10*3/uL (1.2-4.9); Mean Corpuscular HGB Conc 34.2 g/dl (31.0-35.0); Mean Corpuscular Hemoglobin 29.3 pg (27.0-33.0); Mean Corpuscular Volume 85.7 fL (80.0-98.0); NRBC Abs Auto 0.000 X10*3/uL (0.0-0.012); NRBC Pct Auto 0.0 /100WBC (0.0-0.2); Platelet Count 230 X10*3/uL (160-400); Red Blood Count 4.88 X10*6/uL (4.20-5.50); White Blood Count 5.0 X10*3/uL (4.8-10.8)
[2025-07-21 10:36] LABS: Appearance Urine Clear; Glucose Urine UA Negative (Negative); PH 6.0 (5.0-9.0); Specific Gravity - Urine 1.020 (1.005-1.025); UMIC TRIGGER UACC YES
[2025-07-21 10:49] LABS: Alanine Aminotransferase 14 U/L (0-31); Albumin Level 4.6 g/dL (3.5-5.0); Alkaline Phosphatase 111 U/L (39-117); Anion Gap 12 (12-20); Aspartate Amino Transferase 16 U/L (5-31); Blood Urea Nitrogen 17 mg/dL (9-16); Calcium 9.7 mg/dL (8.4-10.2); Carbon Dioxide 27 mmol/L (22-29); Chloride 109 mmol/L (96-108); Cholesterol 242 mg/dL (<200); Estimated Glomerular Filt Rate > 60; HDL Cholesterol 44 mg/dL (>40); Potassium 4.6 mmol/L (3.3-5.1); Sodium 143 mmol/L (135-145); Total Protein 6.6 g/dL (6.5-8.0); Triglycerides 101 mg/dL (<150)
[2025-07-21 10:51] LABS: UACC Culture Trigger YES
== END 2025-07-21 07:36 | disposition home or self-care (01) ==
LOC: HO.HMGCLDS 07:35
PROVIDERS: PCP Nurse Practitioner Family; Visit Provider Nurse Practitioner Family
DX: Z00.00 Encounter for general adult medical examination without abnormal findings (principal); M85.80 Other specified disorders of bone density and structure, unspecified site
CPT/HCPCS: 36415; 80053; 80061; 81001; 82306; 84443; 85025; 87086

== ENCOUNTER 2025-09-23 07:14 | Outpatient (REF) | payer OTHER, SELFPAY ==
--- OUTSIDE RECORDS SUMMARY | 2025-09-23 07:18 | XMS_ITS | Clinical Summary ---
Author Organization [facility] [place] [address] Phone Care Team Providers Care Healthcare Project Manager Name Role Phone Jose Lim NP Primary Care Provider [phone] Allergies Active Allergy Reactions Criticality Noted Date [...] Last Done Comments Breast Cancer Screening 1965 Colorectal Cancer Screening: Colonoscopy 1963 DTaP,Tdap,and Td Vaccines (1 - Tdap) 1982 Cervical Cancer Screening: Pap Smear 1984 Pneumococcal Vaccine: 50+ Years (1 of 1 - PCV) 2013 Depression Screening 10/21/2024 HIV Screening 12/23/2024 Hepatitis C Screening 12/23/2024 [...] patient's age to complete this topic Insurance [facility] Care Teams Healthcare Project Manager Relationship Specialty Start Date End Date Jose Lim NP PCP - General Family Medicine 01/21/25
--- OUTSIDE RECORDS SUMMARY | 2025-09-23 07:18 | XMS_ITS | Clinical Summary ---
Author Organization [facility] Address [address] [address] Phone Care Team Providers Care Guest Specialist Name Role Phone Shania Kaur MD Primary [...] this topic Medical Devices Implanted Type Area Title Processor Device Identifier Shelf Expiration Date Model / Serial / Lot Clip-03/06/2013 Implanted:02/18 (Quantity not on file) Clip Left: Breast Stent Covered Vascular Expandable Balloon Lifestream [id number] 80cm Shaft Length - Uom Issue Use Ps # [id number] - [id number] Implanted:Qty: 1 on 04/06/2020 by Guzman Sims MD at [facility] [employer] [id number] 04/19/2021 [id number] / / [id number] Stent Covered Vascular Expandable Balloon Lifestream [id number] 80cm Shaft Length - Uom Issue Use Ps # [id number] - [id number] Implanted:Qty: 1 on 04/06/2020 by Guzman Sims MD at [facility] [employer] [id number] 04/19/2021 [id number] / / [id number] [place] [address] [employer] PPO [place] GONSALE[place] [phone] [employer] CAREL[employer] PPO Advance Directives For more information, please contact: [phone] (9AM - 5PM [facility], Saturday-Saturday) * No Code Status (Latest [...] Comments: pre op order sheet Care Teams Guest Specialist Relationship Specialty Start Date End Date Shania Kaur MD [address] [facility] [place] [address] PCP - General Internal Medicine 03/24/20 Additional Source Comments The information contained in this document represents components of the legal health record. It is not the complete legal health record.[facility]
--- OUTSIDE RECORDS SUMMARY | 2025-09-23 07:18 | XMS_ITS | Encounter Summary ---
Author Organization [facility] Address [address] [facility] [address] [place] [address] Phone Care Team Providers Care Corporate Account Executive Name Role Phone Shania Kaur MD Primary Care Provider Encounter Details Date Type Department Care Team (Late st Contact Info) Description 04/06/2020 Procedure Pass [facility] [address] [place] [address] Social History Tobacco Use Types Packs/Day Years [...] on filedocumented in this encounter Care Teams Corporate Account Executive Relationship Specialty Start Date End Date Shania Kaur MD [facility] [address] [place] [address] PCP - General Internal Medicine 03/24/20 documented as of this encounter Additional Source Comments The information contained in this document represents components of the legal health record. It is not the complete legal health record.[facility]
[2025-09-23 11:04] LABS: Alanine Aminotransferase 18 U/L (0-31); Albumin Level 4.5 g/dL (3.5-5.0); Alkaline Phosphatase 122 U/L (39-117); Anion Gap 11 (12-20); Aspartate Amino Transferase 20 U/L (5-31); Blood Urea Nitrogen 20 mg/dL (9-16); Calcium 9.5 mg/dL (8.4-10.2); Carbon Dioxide 28 mmol/L (22-29); Chloride 108 mmol/L (96-108); Cholesterol 157 mg/dL (<200); Estimated Glomerular Filt Rate > 60; HDL Cholesterol 41 mg/dL (>40); Potassium 4.1 mmol/L (3.3-5.1); Sodium 143 mmol/L (135-145); Total Protein 6.6 g/dL (6.5-8.0); Triglycerides 91 mg/dL (<150)
== END 2025-09-23 07:15 | disposition home or self-care (01) ==
LOC: HO.HMGCLDS 07:14
PROVIDERS: PCP Nurse Practitioner Family; Visit Provider Nurse Practitioner Family
DX: E78.5 Hyperlipidemia, unspecified (principal)
CPT/HCPCS: 36415; 80053; 80061

== ENCOUNTER 2025-10-01 15:29 | Outpatient (REF) | payer OTHER, SELFPAY ==
--- NOTE | ~2025-10-01 | CT_ITS ---
EXAMINATION: CT LUNG SCREENING HISTORY: Z87.891 - Personal history of nicotine dependence TECHNIQUE: Low dose axial images were obtained from the sternal notch to upper abdomen without IV contrast per standard departmental protocol. Sagittal and coronal reformatted images were also obtained and reviewed. One or more of the following techniques was used for dose reduction: Automated exposure control, adjustment of the mA and/or kV according to patient size, use of iterative reconstruction technique. DLP: 34 mGy-cm COMPARISON: Previous chest CT scan August 2024 FINDINGS: Lung nodules: Mild paraseptal emphysema at the lung apices. No pulmonary nodules. Central airways are clear. Emphysema: mild Coronary Calcification: mild Aortic Arch Calcification: mild Additional Chest Findings: Normal heart size. Normal caliber thoracic aorta. There is no pleural or pericardial effusion. No mediastinal , hilar or axillary lymphadenopathy is identified. No thyroid nodule. Visualized upper abdomen: Unremarkable. Bony structures are unremarkable. CT/CT lung screening IMPRESSION: Mild emphysema. No suspicious pulmonary nodules are identified. LUNG-RADS ASSESSMENT: Lung-RADS 1: Negative MANAGEMENT: Continue annual screening with LDCT in 12 months Category S: N/A Electronically signed by: Ivy Mulligan MD 10/01/2025 04:17 PM [facility]
--- OUTSIDE RECORDS SUMMARY | 2025-10-01 20:19 | XMS_ITS | Clinical Summary ---
Author Organization [facility] Address [address] [address] Phone Care Team Providers Care Stoker Installer Name Role Phone Shania Kaur MD Primary [...] this topic Medical Devices Implanted Type Area Spice Miller Device Identifier Shelf Expiration Date Model / Serial / Lot Clip-03/06/2013 Implanted:02/18 (Quantity not on file) Clip Left: Breast Stent Covered Vascular Expandable Balloon Lifestream [id number] 80cm Shaft Length - Uom Issue Use Ps # [id number] - [id number] Implanted:Qty: 1 on 04/06/2020 by Guzman Sims MD at [facility] [employer] [id number] 04/19/2021 [id number] / / [id number] Stent Covered Vascular Expandable Balloon Lifestream [id number] 80cm Shaft Length - Uom Issue Use Ps # [id number] - [id number] Implanted:Qty: 1 on 04/06/2020 by Guzman Sims MD at [facility] [employer] [id number] 04/19/2021 [id number] / / [id number] [place] [id number] [employer] PPO [place] [id number] [employer] PPO Advance Directives For more information, please contact: [phone] (9AM - 5PM [facility], Saturday-Saturday) * No Code Status (Latest Code [...] Comments: pre op order sheet Care Teams Stoker Installer Relationship Specialty Start Date End Date Shania Kaur MD [address] [place] [address] PCP - General Internal Medicine 03/24/20 Additional Source Comments The information contained in this document represents components of the legal health record. It is not the complete legal health record.[facility]
--- OUTSIDE RECORDS SUMMARY | 2025-10-01 20:19 | XMS_ITS | Clinical Summary ---
Author Organization [facility] [place] [address] Phone Care Team Providers Care Environmental Compliance Officer Name Role Phone Jose Lim NP Primary [...] patient's age to complete this topic Insurance [facility] Care Teams Environmental Compliance Officer Relationship Specialty Start Date End Date oJse Lim NP PCP - General Family Medicine 01/21/25
--- OUTSIDE RECORDS SUMMARY | 2025-10-01 20:19 | XMS_ITS | Encounter Summary ---
Author Organization [facility] Address [address] [facility] [address] [place] [address] Phone Care Team Providers Care Rn Cvor Name Role Phone Shania Kaur MD Primary Care Provider Encounter Details Date Type Department Care Team (Late st Contact Info) Description 04/06/2020 Procedure Pass [facility] Interventional Radiology [address] [place] [address] Social History Tobacco Use Types Packs/Day Years [...] on filedocumented in this encounter Care Teams Rn Cvor Relationship Specialty Start Date End Date Shania Kaur MD [facility] [address] [place] [address] PCP - General Internal Medicine 03/24/20 documented as of this encounter Additional Source Comments The information contained in this document represents components of the legal health record. It is not the complete legal health record.[facility]
== END 2025-10-01 15:30 | disposition home or self-care (01) ==
LOC: HO.CT 15:29
PROVIDERS: PCP Nurse Practitioner Family; Visit Provider Physician Assistant Medical
DX: Z87.891 Personal history of nicotine dependence (principal)
CPT/HCPCS: 71271

== ENCOUNTER → 2025-10-01 15:31 | Outpatient (BNV) | payer OTHER, SELFPAY | PROVIDERS: PCP Nurse Practitioner Family; Visit Provider Radiology Diagnostic Radiology | DX: Z87.891 Personal history of nicotine dependence (principal) | CPT/HCPCS: 71271 ==

== ENCOUNTER 2025-10-08 13:45 | Outpatient (REF) | payer OTHER, SELFPAY ==
--- NOTE | ~2025-10-08 | MM_ITS ---
EXAMINATION: MM SCREENING DIGITAL BREAST TOMOSYNTHESIS, BILATERAL CLINICAL INFORMATION: Screening. Asymptomatic. COMPARISON: Mammography: Comparison is made with available priors TECHNIQUE: Digital breast mammography with tomosynthesis is performed in both the craniocaudal and mediolateral oblique views along with computer-aided detection (CAD). FINDINGS: There are scattered areas of fibroglandular density. Left marker clip. There are no significant masses, abnormal calcifications, or other abnormalities. MM/MM tomosynthesis screening BI IMPRESSION: No mammographic evidence of malignancy. ASSESSMENT: BI-RADS Category 2: Benign RECOMMENDATION: Routine annual mammography screening. 1 year F/U This examination should not preclude the clinical evaluation of a suspicious palpable abnormality. This patient's information was entered into a reminder system with a target due date for their next mammogram. Electronically signed by: Chanelle Britt DO 10/12/2025 10:48 AM [facility]
--- OUTSIDE RECORDS SUMMARY | 2025-10-08 15:26 | XMS_ITS | Clinical Summary ---
Author Organization [facility] Address [address] [address] Phone Care Team Providers Care Plaster Pattern Caster Name Role Phone Shania Kaur MD Primary [...] this topic Medical Devices Implanted Type Area Certified Ethical Hacker Device Identifier Shelf Expiration Date Model / Serial / Lot Clip-03/06/2013 Implanted:02/18 (Quantity not on file) Clip Left: Breast Stent Covered Vascular Expandable Balloon Lifestream [id number] 80cm Shaft Length - Uom Issue Use Ps # [id number] - [id number] Implanted:Qty: 1 on 04/06/2020 by Guzman Sims MD at [facility] [employer] [id number] 04/19/2021 [id number] / / [id number] Stent Covered Vascular Expandable Balloon Lifestream [id number] 80cm Shaft Length - Uom Issue Use Ps # [id number] - [id number] Implanted:Qty: 1 on 04/06/2020 by Guzman Sims MD at [facility] [employer] [id number] 04/19/2021 [id number] / / [id number] [place] [id number] [employer] PPO [place] [id number] [employer] PPO Advance Directives For more information, please contact: [phone] (9AM - 5PM [facility], Saturday-Saturday) * No Code Status (Latest Code [...] Comments: pre op order sheet Care Teams Plaster Pattern Caster Relationship Specialty Start Date End Date Shania Kaur MD [address] [place] [address] PCP - General Internal Medicine 03/24/20 Additional Source Comments The information contained in this document represents components of the legal health record. It is not the complete legal health record.[facility]
--- OUTSIDE RECORDS SUMMARY | 2025-10-08 15:26 | XMS_ITS | Clinical Summary ---
Author Organization [facility] [place] [address] Phone Care Team Providers Care Child Development Assistant Name Role Phone Jose Lim NP Primary [...] patient's age to complete this topic Insurance [facility] PL[facility] Care Teams Child Development Assistant Relationship Specialty Start Date End Date Jose Lim NP PCP - General Family Medicine 01/21/25
--- OUTSIDE RECORDS SUMMARY | 2025-10-08 15:26 | XMS_ITS | Encounter Summary ---
Author Organization [facility] Address [address] [facility] [address] [place] [address] Phone Care Team Providers Care Railway Switch Operator Name Role Phone Shania Kaur MD Primary Care Provider Encounter Details Date Type Department Care Team (Late st Contact Info) Description 04/06/2020 Procedure Pass [email or web address] Cardiovascular [facility] Interventional Radiology [address] [place] [address] Social History Tobacco Use Types Packs/Day Years [...] on filedocumented in this encounter Care Teams Railway Switch Operator Relationship Specialty Start Date End Date Shania Kaur MD [facility] [address] [place] [address] PCP - General Internal Medicine 03/24/20 documented as of this encounter Additional Source Comments The information contained in this document represents components of the legal health record. It is not the complete legal health record.[facility]
== END 2025-10-08 13:46 | disposition home or self-care (01) ==
LOC: HO.MAMMO 13:45
PROVIDERS: PCP Nurse Practitioner Family; Visit Provider Nurse Practitioner Family
DX: Z12.31 Encounter for screening mammogram for malignant neoplasm of breast (principal)
CPT/HCPCS: 77063; 77067

== ENCOUNTER → 2025-10-08 14:00 | Outpatient (BNV) | payer OTHER, SELFPAY | PROVIDERS: PCP Nurse Practitioner Family; Visit Provider Internal Medicine | DX: Z12.31 Encounter for screening mammogram for malignant neoplasm of breast (principal) | CPT/HCPCS: 77063; 77067 ==